=== PATIENT | female | born 1945 | race Caucasian/White ===

== ENCOUNTER 2017-02-28 16:34 | Emergency (ER) | payer MEDICARE, BC ==
[2017-02-28 17:16] LABS: ALBUMIN 2.5 g/dL (3.5-5.0); ALKALINE PHOSPHATASE 243 U/L (38-126); ALT 31 U/L (9-52); AST 24 U/L (14-36); BILIRUBIN, DIRECT 0.4 mg/dL (0.0-0.4); BILIRUBIN, TOTAL 0.7 mg/dL (0.2-1.3); BLOOD UREA NITROGEN 16 mg/dL (7-17); CALCIUM 7.8 mg/dL (8.4-10.2); CHLORIDE 96 mmol/L (98-107); CREATININE 0.9 mg/dL (0.5-1.0); EST GLOMERULAR FILTRATION RATE > 60 mL/min; GLUCOSE 98 mg/dL (70-100); LIPASE 31 U/L (23-300); POTASSIUM 3.8 mmol/L (3.5-5.1); SODIUM 130 mmol/L (137-145); TOTAL PROTEIN 5.6 g/dL (6.3-8.2)
[2017-02-28] MEDS ORDERED: PIPERACILLIN /TAZO 3.375 GM/10 ML VIAL IV ONE (17:49)
[2017-02-28] MEDS ORDERED: NORMAL SALINE 100 ML IV ONE (17:49)
[2017-02-28 17:52] LABS: HEMATOCRIT 34.3 % (36.0-48.0); HEMOGLOBIN 11.6 g/dL (12.0-16.0); MEAN CELL VOLUME 84.6 fL (80.0-100.0); MEAN CORPUSCULAR HEMOGLOBIN 28.8 pg (29.0-35.0); MEAN PLATELET VOLUME 7.7 fL (7.4-10.4); PLATELET COUNT 451 X 10^3uL (130-440); RED BLOOD COUNT 4.05 X 10^6uL (4.20-6.10); RED CELL DISTRIBUTION WIDTH 14.4 % (11.5-14.5)
[2017-02-28 17:53] LABS: BAND% (Manual) 12 % (0.0-1.0); BASOPHIL % (Manual) 0 % (0.0-2.0); EOSINOPHIL % (Manual) 0 % (0.0-6.0); LYMPHOCYTE % (Manual) 12 % (20.0-40.0); METAMYELOCYTE % (Manual) 0 % (0); MONOCYTE % (Manual) 5 % (2.0-10.0); MYELOCYTE % (Manual) 0 % (0); NEUTROPHIL % (Manual) 71 % (54.0-75.0); PLATELET ESTIMATE INCREASED
--- NOTE | 2017-02-28 18:33 | CT REPORT ---
HISTORY: History of colon resection, redness and drainage at incision site. COMPARISON: None. TECHNIQUE: This examination was performed using automated exposure control, adjustment of mA or kV according to patient size, and/or use of iterative reconstruction technique. Multiple contiguous axial images were obtained from the lung bases through the pubic symphysis following administration of intravenous con trast. 100cc Isovue 300 contrast. FINDINGS: There is small bilateral pleural effusions with some dependent atelectasis or consolidation of the travis ng parenchyma noted. Cardiac structures are grossly unremarkable. Abdomen/pelvis: The liver is normal in appearance without a mass or evidence of intrahepatic ductal d ilatation. Cholelithiasis is noted, the gallbladder is otherwise unremarkable. The spleen is normal in appearance. There is no pancreatic mass or ductal dilatation. The adrenal glands are unremarkable. The right an d left kidneys are normal in appearance. No mass or hydronephrosis is noted. There is suture material noted within a segment of the transverse colon and the ascending colon is ab sent. There is subcutaneous gas in the anterior abdominal wall with mesenteric inflammatory change id entified in the adjacent large bowel and small bowel mesentery consistent with the patient's postoper ative status. There is trace intraperitoneal fluid noted in the pelvis. There is no intraperitoneal g as identified. The stomach is unremarkable. There is no dilated segment of small bowel. There is very minimal bowel wall edema and enhancement noted particularly in the right upper quadrant, where there is some interloop mesenteric fluid. There is no rim-enhancing intraperitoneal collection. Vascular s tructures of the abdomen and pelvis are unremarkable. No pathologic adenopathy is identified. No lebron spicious bony lesions are seen. IMPRESSION: Postoperative changes of the colon with mesenteric edema, inter loop fluid, and minimal adjacent smal l bowel wall thickening and enhancement, no evidence of abscess. Trace anterior abdominal wall subcut aneous gas consistent with postoperative status. Cholelithiasis. Bilateral pleural effusions with some dependent lung parenchymal consolidation or atelectasis. No nieves dence of high-grade bowel obstruction. No focal subcutaneous fluid collection is identified. Final Electronic Signature: This report was electronically signed by Enrique Noel MD, FACR on 2016 6:31 PM. harjit /
[2017-02-28] MEDS ORDERED: KETOROLAC TROMETHAMINE 30 MG/ML VIAL ONE (18:51)
--- NOTE | 2017-02-28 18:52 | ER NURSING DOCUMENTATION ---
Nurse's Notes [facility] Name:Aislinn Broderick Age:71 yrs Sex:Female :1945 Arrival Date:02/28/2017 Time:16:34 Bed4 Private MD:Gavin Acosta Diagnosis:Sepsis;Postop Infection Presentation: 02/28 16:35 Presenting complaint: Patient states: pt had a colon resection on February [address] is foul smelling drainage from the insition sight and redness around the wound. Transition of care: Home. Care prior to arrival: Dr. Moran placed her on Bactrim yesterday for redness around the wound. 16:35 Method Of Arrival: Private Vehicle st 16:53 Acuity: TAMMI 2 st Triage Assessment: 16:35 General: Appears ill, uncomfortable, Behavior is cooperative. Pain: Denies pain. st Cardiovascular: No deficits noted. Respiratory: No deficits noted. GI: Abdomen is obese, Abdomen is tender to palpation X 4 quads. Injury Description: insition looks red and weepy. wound leaks a foul smelling yellow fluid. Historical: - Allergies: Ceclor; - Home Meds: 1. oxygen 2. biotin oral 3. Calcium Lactate Oral 4. CPAP 5. Flexeril Oral 6. Lexapro Oral 7. Levothroid Oral 8. Naproxen Oral 9. Oxybutynin Chloride Oral 10. Bactrim DS Oral 11. Trazodone Oral - PMHx: CANCER, COLON; ARTHRITIS; scoliosis; - PSHx: colon resection; - Tetanus: < 10 years. - Ebola Screening: : Patient denies exposure to infectious person. Patient denies travel to an Ebola-affected area in the 21 days before illness onset. . - Social history: Smoking status: Patient states was never smoker of tobacco. Patient/guardian denies using alcohol, marijuana. Screenin:21 Infectious Disease Risk None. Abuse screen: Denies threats or abuse. Denies injuries st from another. pt feels safe at home. Nutritional screening: No deficits noted. Assessment: 18:33 General: wound expressing foul fluid. . st Vital Signs: 16:42 BP 111 / 60 (auto/); Temp 98.4(O); Pain 0/10; st 16:47 Pulse Ox 99% ; st 17:10 BP 122 / 58 (auto/); st 17:12 Pulse 97 MON; Resp 17; Pulse Ox 100% ; st 17:17 Pulse 97 MON; Resp 19; Pulse Ox 100% ; st 17:20 BP 131 / 60 (auto/); st 17:27 Pulse 98 MON; Resp 22; Pulse Ox 100% ; st 17:30 BP 136 / 54 (auto/); st 18:05 BP 132 / 63 (auto/); st 18:07 Pulse 100 MON; Resp 26; Pulse Ox 94% ; st 18:10 BP 128 / 59 (auto/); st 18:17 Pulse 101 MON; Resp 22; Pulse Ox 95% ; st 18:20 BP 123 / 60 (auto/); st 18:27 Pulse 101 MON; Resp 28; Pulse Ox 94% ; st 18:30 BP 132 / 55 (auto/); st 18:32 Pulse 99 MON; Resp 27; Pulse Ox 96% ; st 18:40 BP 148 / 64 (auto/); st 18:47 Pulse 99 MON; Resp 36; Pulse Ox 96% ; st ED Course: 16:35 Patient arrived in ED. ama 16:36 Gavin Acosta DO is Private Physician. ama 16:50 ruling technician on. Pulse ox on. NIBP on. Warm blanket given. st 16:53 Stephani Casillas, RN is Primary Nurse. st 16:[address] 16:53 Inserted peripheral IV: 20 gauge in right antecubital area and blood collected. st 17:07 Misha Mendosa MD is Attending Physician. 17:09 First set of blood cultures drawn Second set of blood cultures drawn by me. st 17:22 Valuables Remains with patient Patient has correct armband on for positive st identification. Placed in gown. Bed in low position. Call light in reach. Side rails up X 1. 17:[address] hz 17:55 Patient moved back from [address]. hz 18:33 Wound culture sent to lab. st Administered Medications: 17:09 Drug: NS 0.9% 1000 ml; Route: IV; Rate: bolus; Site: right antecubital; st 18:06 Follow up: IV Status: Completed infusion; IV Intake: 1000ml st 18:00 Drug: Zosyn 3.375 grams; Route: IVPB; Site: right antecubital; st 18:37 Follow up: IV Status: Completed infusion; IV Intake: 120ml st 18:42 Drug: Toradol 30 mg; Route: IVP; Site: right antecubital; st 18:51 Follow up: Response: Medication administered at discharge. st 18:42 Not Given (Patient Refused): morphine [address] Intake: 18:06 IV: 1000ml; Total: 1000ml. st 18:37 IV: 120ml; Total: 1120ml. st Outcome: 18:34 ER care complete, transfer ordered by . jeff 18:47 Report given to Tai GREEN st 18:50 [facility] Time: February 28, 2017 at 18:50 Patient's face sheet was faxed to accepting facility. Face Sheet included patient's name, address, age, gender, contact information and insurance information. Patient will be transported by: [facility] ground. Nurse and Physician Charting and Notes were sent to Accepting Facility. All tests and/or procedures with results, if applicable, were sent to accepting facility. 18:50 Condition: guarded 18:50 Instructed on need for transfer 18:51 Patient [address] the ED. st Signatures: Stephani Casillas RN RN st Meyer, John, MD MD jm Averdick, Andrew, Cris Garcia
--- NOTE | 2017-02-28 18:52 | ER PHYSICIAN DOCUMENTATION ---
[facility] Name:Aislinn Broderick Age:71 yrs Sex:Female :1945 Arrival Date:02/28/2017 Time:16:34 Bed4 Private MD:Gavin Acosta ED, John Disposition: 02/28/17 18:34 Transfer ordered to [facility]. Diagnosis are Sepsis, Postop Infection. - Reason for transfer: Specialty. - Accepting physician is Dr. Minor. - Condition is Serious. - Problem is new. - Symptoms are unchanged. COBRA Form completed? Yes Transfer - Mode of Transportation Ambulance HPI: 02/28 17:46 This 71 yrs old Female presents to ER via Private Vehicle with complaints of jm POSSIBLE SEPSIS. 17:46 The patient presents with abdominal pain. Onset: The symptoms/episode began/occurred jm today. The symptoms do not radiate. Associated signs and symptoms: Pertinent positives: feculent material coming from a postoperative scar. . The symptoms are described as dull. Modifying factors: the symptoms are aggravated by medication(s), pressure. Severity of pain: At its worst the pain was mild in the emergency department the pain is unchanged. The patient has not experienced similar symptoms in the past. The patient has been recently seen by a physician: the patient's primary care provider, Dr. Duran, with similar presenting complaints, sent to ER for work up. . . 17:58 71 yo F s/p R hemicolectomy for cecal Ca and adenoma of the transverse colon don't jm 02/01/17, complicated by post op ileus sent here by her PCP for eval. Pt was seen yesterday for wound infection and placed on Bactrim, but today she had a large amount of feculent material that came through the wound w/o dehiscence in front of Dr. Duran. Dr. Duran noted an SBP of 90 and HR of 130, so he sent her here right away. Her VS are much better here. Pt denies fevers or chills, but feels run down for the last few days. . Historical: - Allergies: Ceclor; - Home Meds: 1. oxygen 2. biotin oral 3. Calcium Lactate Oral 4. CPAP 5. Flexeril Oral 6. Lexapro Oral 7. Levothroid Oral 8. Naproxen Oral 9. Oxybutynin Chloride Oral 10. Bactrim DS Oral 11. Trazodone Oral - PMHx: CANCER, COLON; ARTHRITIS; scoliosis; - PSHx: colon resection; - Tetanus: < 10 years. - Ebola Screening: : Patient denies exposure to infectious person. Patient denies travel to an Ebola-affected area in the 21 days before illness onset. . - Social history: Smoking status: Patient states was never smoker of tobacco. Patient/guardian denies using alcohol, marijuana. ROS: 18:02 Constitutional: Positive for fatigue, malaise, Negative for fever. 18:02 ENT: Negative for rhinorrhea, sinus congestion, sinus pain, sore throat. 18:02 Cardiovascular: Negative for chest pain. 18:02 Respiratory: Negative for cough, shortness of breath. 18:02 Abdomen/GI: Positive for abdominal pain, Negative for nausea, vomiting, diarrhea. 18:02 Back: Negative for radiated pain. 18:02 MS/extremity: Negative for swelling, tenderness. 18:02 Skin: Positive for cellulitis, of the abdomen. 18:02 Neuro: Negative for numbness, weakness. 18:02 Psych: Negative for drug dependence, alcohol dependence. 18:02 All other systems are negative. Exam: 18:03 Constitutional: The patient appears alert, awake, comfortable. 18:03 Eyes: Periorbital structures: appear normal, Conjunctiva: normal. 18:03 ENT: Mouth: is normal, Voice: is normal. 18:03 Cardiovascular: Rate: actual rate is 95 bpm, Rhythm: regular, Pulses: no pulse deficits are appreciated. 18:03 Respiratory: Respirations: normal, Breath sounds: are normal. 18:03 Abdomen/GI: Inspection: scar(s), are noted in the midline- no dehisence, but cellulitis noted. I did not express any purulance or feculent material , Bowel sounds: normal, Palpation: mild abdominal tenderness, in the umbilical area. 18:03 Back: pain, is absent, CVA tenderness, is absent. 18:03 Skin: Appearance: Color: pink, cellulitis, that is moderate, well demarcated, on the abdomen. 18:03 Neuro: Mentation: is normal, Memory: is normal. 18:03 Psych: Behavior/mood is pleasant, Affect is calm. Vital Signs: 16:42 BP 111 / 60 (auto/); Temp 98.4(O); Pain 0/10; st 16:47 Pulse Ox 99% ; st 17:10 BP 122 / 58 (auto/); st 17:12 Pulse 97 MON; Resp 17; Pulse Ox 100% ; st 17:17 Pulse 97 MON; Resp 19; Pulse Ox 100% ; st 17:20 BP 131 / 60 (auto/); st 17:27 Pulse 98 MON; Resp 22; Pulse Ox 100% ; st 17:30 BP 136 / 54 (auto/); st 18:05 BP 132 / 63 (auto/); st 18:07 Pulse 100 MON; Resp 26; Pulse Ox 94% ; st 18:10 BP 128 / 59 (auto/); st 18:17 Pulse 101 MON; Resp 22; Pulse Ox 95% ; st 18:20 BP 123 / 60 (auto/); st 18:27 Pulse 101 MON; Resp 28; Pulse Ox 94% ; st 18:30 BP 132 / 55 (auto/); st 18:32 Pulse 99 MON; Resp 27; Pulse Ox 96% ; st 18:40 BP 148 / 64 (auto/); st 18:47 Pulse 99 MON; Resp 36; Pulse Ox 96% ; st MDM: 17:07 Patient medically screened. 18:08 Differential diagnosis: sepsis 2/2 to leaked anastomsis. Data reviewed: vital signs, nurses notes, old medical records, lab test result(s), radiologic studies, and as a result, I will *Transfer Patient. 18:36 Counseling: I had a detailed discussion with the patient and/or guardian regarding: the historical points, exam findings, and any diagnostic results supporting the discharge/admit diagnosis, lab results, radiology results, the need to transfer to another facility. Medication response: The patient's symptoms have improved. Physician consultation: Dr. Minor was called at 18:20, was contacted at 18:30, regarding patient's condition, and transfer- . ED course: Pt w sepsis given elevated WBC, HR, and a source. Pt expressed another 10cc of feculent material here. Will start zosyn. CT results are not too alarming, but I feel most of the material was expressed which is why the CT only showed appropriate post op changes. I spoke w surgeon Dr. Velazco, who accepted pt but wants pt seen in the ER. . 03/30 17:16 Order name: LACTATE; Complete Time: 17:56 EDMS 02/28 18:21 Interpretation: Abnormal. 02/28 17:17 Order name: BASIC METABOLIC PANEL; Complete Time: 17:56 EDMS 02/28 18:21 Interpretation: Abnormal: SODIUM 130; hyponatremia. 02/28 17:17 Order name: HEPATIC PANEL; Complete Time: 17:56 EDMS 02/28 17:17 Order name: LIPASE; Complete Time: 17:56 EDMS 02/28 17:55 Order name: CBC WITHOUT A DIFFERENTIAL; Complete Time: 17:56 EDMS 02/28 18:21 Interpretation: Abnormal: WHITE BLOOD COUNT 27.0. 02/28 17:55 Order name: MANUAL DIFFERENTIAL; Complete Time: 17:56 EDMS 02/28 18:21 Interpretation: BAND% (Manual) 12. 02/28 18:35 Order name: CAT SCAN; ABD/PEL W [id number]; Complete Time: 18:36 EDMS 02/28 16:56 Order name: I & O; Complete Time: 17:13 02/28 16:56 Order name: NPO; Complete Time: 17:13 02/28 16:56 Order name: Oxygen; Complete Time: 17:13 02/28 16:56 Order name: Place Patient On Monitor; Complete Time: 17:13 02/28 16:56 Order name: Pulse Ox Continuous; Complete Time: 17:13 st Dispensed Medications: 17:09 Drug: NS 0.9% 1000 ml; Route: IV; Rate: bolus; Site: right antecubital; st 18:06 Follow up: IV Status: Completed infusion; IV Intake: 1000ml st 18:00 Drug: Zosyn 3.375 grams; Route: IVPB; Site: right antecubital; st 18:37 Follow up: IV Status: Completed infusion; IV Intake: 120ml st 18:42 Drug: Toradol 30 mg; Route: IVP; Site: right antecubital; st 18:51 Follow up: Response: Medication administered at discharge. st 18:42 Not Given (Patient Refused): morphine [address] Signatures: Stephani Casillas RN RN st Meyer, John, MD MD jm
== END 2017-02-28 18:52 | disposition short-term general hospital (02) ==
LOC: ER 16:34
DX: T81.4XXA Infection following a procedure, initial encounter (principal); A41.9 Sepsis, unspecified organism; L03.311 Cellulitis of abdominal wall; Z90.49 Acquired absence of other specified parts of digestive tract; Z98.890 Other specified postprocedural states; R00.0 Tachycardia, unspecified; I95.9 Hypotension, unspecified; Z85.038 Personal history of other malignant neoplasm of large intestine; R53.83 Other fatigue; R53.81 Other malaise; Z98.0 Intestinal bypass and anastomosis status; Z99.81 Dependence on supplemental oxygen; Z74.3 Need for continuous supervision; Z79.899 Other long term (current) drug therapy
CPT/HCPCS: 74177; 80048; 80076; 83605; 83690; 85007; 85027; 87040; 87070; 87077; 87186; 87205; 96361; 96365; 96375; 99285; A0425; A0427; J1885; J2543

== ENCOUNTER 2017-04-08 16:14 | Observation (INO) | payer MEDICARE, BC ==
[2017-04-08 17:11] LABS: CHLORIDE 101 mmol/L (98-107); POTASSIUM 4.1 mmol/L (3.5-5.1); SODIUM 136 mmol/L (137-145)
[2017-04-08 17:12] LABS: BLOOD UREA NITROGEN 18 mg/dL (7-17); CREATININE 0.9 mg/dL (0.5-1.0); EST GLOMERULAR FILTRATION RATE > 60 mL/min; GLUCOSE 117 mg/dL (70-100)
[2017-04-08] MEDS ORDERED: FAMOTIDINE IN SALINE, ISO-OSM 50 ML IV ONE (17:21)
[2017-04-08] MEDS ORDERED: ONDANSETRON HCL 4 MG/2 ML VIAL ONE (17:22)
[2017-04-08 17:24] LABS: BASOPHIL# 0.2 X 10^3uL (0.0-0.1); BASOPHILS 0.9 % (0.0-2.0); EOSINOPHILS 0.1 % (0.0-6.0); HEMATOCRIT 40.3 % (36.0-48.0); HEMOGLOBIN 13.1 g/dL (12.0-16.0); LYMPHOCYTES 26.8 % (20.0-40.0); LYMPHOCYTES# 4.8 X 10^3uL (0.8-3.8); MEAN CELL VOLUME 87.2 fL (80.0-100.0); MEAN CORPUS. HGB CONCENTRATION 32.3 g/dL (32.0-36.0); MEAN CORPUSCULAR HEMOGLOBIN 28.2 pg (29.0-35.0); MEAN PLATELET VOLUME 7.7 fL (7.4-10.4); MONOCYTES 4.2 % (2.0-10.0); MONOCYTES# 0.7 X 10^3uL (0.2-1.0); NEUTROPHILS# 12.1 X 10^3uL (2.6-6.7); PLATELET COUNT 504 X 10^3uL (130-440); RED BLOOD COUNT 4.63 X 10^6uL (4.20-6.10); RED CELL DISTRIBUTION WIDTH 15.6 % (11.5-14.5); WHITE BLOOD COUNT 17.8 X 10^3uL (3.9-10.7)
[2017-04-08 17:44] LABS: ALBUMIN 3.7 g/dL (3.5-5.0); ALKALINE PHOSPHATASE 143 U/L (38-126); ALT 42 U/L (9-52); AST 48 U/L (14-36); BILIRUBIN, DIRECT 0.2 mg/dL (0.0-0.4); BILIRUBIN, TOTAL 0.6 mg/dL (0.2-1.3); CALCIUM 9.6 mg/dL (8.4-10.2); TOTAL PROTEIN 7.5 g/dL (6.3-8.2)
[2017-04-08 17:48] LABS: LIPASE 76 U/L (23-300)
[2017-04-08] MEDS ORDERED: HYDROmorphone HCL 1 MG/ML SYR ONE (17:54)
--- NOTE | 2017-04-08 18:00 | CT REPORT ---
HISTORY: Abdominal pain after partial colectomy COMPARISON: 02/28/2017 TECHNIQUE: This examination was performed using automated exposure control, adjustment of mA or kV according to patient size, and/or use of iterative reconstruction technique. Axial contiguous images of the abdome n and pelvis were obtained without oral or IV contrast, coronal reformat images also performed. FINDINGS: The visualized lung parenchyma and cardiac structures are unremarkable. The right and left kidneys are unremarkable. There is no hydronephrosis or hydroureter. There is no c alculus. Diffuse hepatic parenchymal low attenuation is noted, suggesting hepatic steatosis. Nonobstructive g allstone is again noted. No gallbladder wall thickening. The spleen is unremarkable. There is no pa ncreatic mass or ductal dilatation. The adrenal glands are unremarkable. The proximal small bowel is dilated up to 4.5 cm and the dilated segments contain multiple air-fluid levels. The small bowel transitions to normal caliber within the anterior right lower quadrant (axial image 36), however there is no mass or obstructing lesion at the segment. Postoperative changes from right hemicolectomy are redemonstrated with unremarkable appearance of the anastomosis just anterior to the aortic bifurcation. There is no intra-abdominal free fluid or free air. Aortoiliac arterial atherosclerotic calcifications present. No pathologic adenopathy is identi fied. There is no bone lesion. The wound VAC overlies the ventral midline incision. IMPRESSION: 1. Partial mechanical small bowel obstruction with transition point in the anterior right lower abdom en. 2. Post hemicolectomy changes. 3. Nonobstructive cholelithiasis. 4. Hepatic steatosis. Results were discussed with Dr. CHOWDHURY via phone on 04/08/2017 5:[address] Melo. A critical read ba ck occurred. Final Electronic Signature: This report was electronically signed by Jose Ramon Melo MD on 04/08/2017 5:5 7 PM. dwells /
[2017-04-08] MEDS ORDERED: HOME MEDICATION LIST NEEDED 1 EA EACH MISC ONE (18:40)
[2017-04-08] MEDS ORDERED: LIDOCAINE HCL 1% 20 ML VIAL ONE (19:03)
[2017-04-08] MEDS ORDERED: CALCIUM CARBONATE 300 MG TAB.CHEW PO PRN (19:56)
--- NOTE | 2017-04-08 20:10 | ER PHYSICIAN DOCUMENTATION ---
Physician Documentation [facility] Name:Aislinn Broderick Age:71 yrs Sex:Female :1945 Arrival Date:04/08/2017 Time:16:14 Bed4 Private MD:Gavin Acosta ED, Chris Disposition: 04/08/17 18:34 Admit ordered for Quinn Patterson. Preliminary diagnosis are Bowel Obstruction - : SBO at Proximal Ileum, Dehydration. - Bed requested for Medical/Surgical. - Condition is Fair. - Problem is new. - Symptoms have improved. 23 HR OBS Yes HPI: 04/08 16:16 This 71 yrs old Female presents to ER via Private Vehicle with complaints of cd Abdominal Pain. 16:16 The patient presents with abdominal pain in the epigastric area, that is diffuse, cd abdominal distention that is diffuse. constipation, the patient or guardian reports hard stools. Onset: The symptoms/episode began/occurred acutely, yesterday, and became worse today. The symptoms do not radiate. Associated signs and symptoms: Pertinent positives: anorexia, nausea, Epigastric "indigestion" and reflux, Pertinent negatives: blood in stools, chest pain, dysuria, fever, hematuria, shortness of breath, vomiting blood, + belching. The symptoms are described as crampy. Severity of pain: At its worst the pain was moderate in the emergency department the pain is unchanged. The patient has not experienced similar symptoms in the past. The patient had undergone Colonoscopy and colon lesion biopsy. She had a post-biopsy GI bleed which was controlled at [facility], but she was ultimately transferred to [facility] for a Right Hemicolectomy, since her lesion location was near the cecum and involved the Cecum. She had a post-op surgical wound infection that required antibiotics and a Swing bed admission status here at [facility]. She has never had a bowel obstruction.. Historical: - Allergies: Ceclor; - PMHx: HYPERTENSION; colon CA; THYROID PROBLEM; GERD; ANEMIA; sepsis; - PSHx: hemicolectomy; sleep apnea; - Immunization history: Flu Vaccine unknown. - Ebola Screening: : Patient negative for fever greater than or equal to 101.5 degrees Fahrenheit, and additional compatible Ebola Virus Disease symptoms. Patient denies exposure to infectious person. Patient denies travel to an Ebola-affected area in the 21 days before illness onset. No symptoms or risks identified at this time. . - Social history: Smoking status: Patient states former smoker of tobacco. ROS: 18:10 Constitutional: Positive for malaise, poor PO intake, Negative for chills, fever. cd 18:10 Cardiovascular: Negative for chest pain, edema, palpitations. 18:10 Respiratory: Negative for cough, shortness of breath, wheezing. 18:10 Abdomen/GI: Positive for abdominal pain, nausea, vomiting, abdominal distension, anorexia, Negative for hematemesis, black/tarry stool, rectal bleeding. 18:10 Back: Negative for pain at rest. 18:10 MS/extremity: Negative for acute changes. 18:10 Skin: Negative for acute changes. 18:10 Neuro: Negative for acute changes. 18:10 All other systems are negative. Exam: 18:10 Head/Face: Normocephalic, atraumatic. cd ENT: Nares patent. No nasal discharge, no septal abnormalities noted. Tympanic membranes are normal and external auditory canals are clear. Oropharynx with no redness, swelling, or masses, exudates, or evidence of obstruction, uvula midline. Mucous membranes very dry Chest/axilla: Normal chest wall appearance and motion. Nontender with no deformity. No lesions are appreciated. Cardiovascular: Regular rate and rhythm with a normal S1 and S2. No gallops, murmurs, or rubs. Normal PMI, no JVD. No pulse deficits. 18:10 Respiratory: Lungs have equal breath sounds bilaterally, clear to auscultation and cd percussion. No rales, rhonchi or wheezes noted. No increased work of breathing, no retractions or nasal flaring. 18:10 Constitutional: The patient appears alert, awake, non-diaphoretic, non-toxic, well developed, well nourished, anxious, listless, in obvious distress, moderately distressed. 18:10 Abdomen/GI: Inspection: distension, that is moderate, Bowel sounds: high pitched, all quadrants. Palpation: moderate abdominal tenderness, in the left upper quadrant, right lower quadrant and left lower quadrant, Indicators: Daniel's sign is negative. 18:10 Back: pain, is absent, normal spinal alignment noted, CVA tenderness, is absent. 18:10 Musculoskeletal/extremity: Exam is negative for acute changes. 18:10 Skin: Exam negative for acute changes. 18:10 Neuro: Exam negative for acute changes. Vital Signs: 16:18 BP 150 / 75 (auto/); tg 16:19 Pulse 97 MON; Resp 32; Pulse Ox 97% ; tg 17:04 Pulse 78 MON; Resp 17; Pulse Ox 95% ; tg 17:04 Temp 97.6(O); Weight 69.4 kg (R); Height 5 ft. 5 in. (165.10 cm) (R); Pain 3/10; tg 19:00 BP 190 / 88 (auto/); tg 19:09 Pulse 70 MON; Resp 31; Pulse Ox 94% ; tg 17:04 Body Mass Index 25.46 (69.40 kg, 165.10 cm) tg MDM: 16:39 Patient medically screened. cd 16:40 Differential diagnosis: bowel obstruction, cholecystitis, diverticulitis, gastritis, cd gastroesophageal reflux disease, Mesenteric ischemia or infarction, Pyelonephritis. 16:45 Data reviewed: vital signs, nurses notes, old medical records, and as a result, I will cd continue to observe the patient, initiate a consult, with a general surgeon, administer IV fluids, NS bolus, NS maintenence, prescribe pain medication, Dilaudid. Data interpreted: Pulse oximetry: on room air is 94 %. Interpretation: normal. 18:30 Counseling: I had a detailed discussion with the patient and/or guardian regarding: the cd historical points, exam findings, and any diagnostic results supporting the discharge/admit diagnosis, lab results, radiology results, the need for further work-up and treatment in the hospital. Response to treatment: the patient's symptoms have mildly improved after treatment, and as a result, I will admit patient. Physician consultation: Quinn Patterson MD was called at 16:45, was contacted at 16:45, regarding admission, to the floor, consult, patient's condition, need to come to ED to see patient, need to evaluate the patient as soon as possible, and will see patient in ED, shortly. 19:17 EKG attached lp 19:17 EKG attached lp 04/08 17:13 Order name: BASIC METABOLIC PANEL; Complete Time: 21:59 EDMS 04/08 17:33 Interpretation: Normal. cd 04/08 17:58 Order name: HEPATIC PANEL; Complete Time: 21:59 EDMS 04/08 18:30 Interpretation: Normal Except: ALKALINE PHOSPHATASE 143; AST 48. cd 04/08 17:58 Order name: LIPASE; Complete Time: 21:59 EDMS 04/08 18:30 Interpretation: Normal. cd 04/08 18:01 Order name: CBC AUTO DIF, MDIF/RMOR IF IND; Complete Time: 21:59 EDMS 04/08 18:30 Interpretation: Normal Except: WHITE BLOOD COUNT 17.8; PLATELET COUNT 504; Elevated WBC cd with Left shift, Thrombocytosis. 04/08 18:31 Order name: INR W/ CAPI DRAW; Complete Time: 18:45 EDMS 04/09 21:58 Interpretation: Abnormal: Elevated into [place] range. Patient on Warfarin for a cd RUE DVT. 04/08 20:12 Order name: TROPONIN I; Complete Time: 21:59 EDMS 04/09 08:53 Order name: CBC AUTO DIF, MDIF/RMOR IF IND; Complete Time: 21:59 EDMS 04/09 09:58 Order name: INR W/ CAPI DRAW; Complete Time: 21:59 EDMS 04/09 23:42 Order name: BLOOD CULTURE EDMS 04/10 06:30 Order name: INR W/O CAPI DRAW EDMS 04/10 06:32 Order name: BASIC METABOLIC PANEL EDMS 04/10 13:55 Order name: UA W/ MICRO -CULTURE IF IND EDMS 04/08 17:34 Order name: CAT SCAN; ABD/[place] [id number]; Complete Time: 18:17 EDMS 04/08 18:29 Interpretation: Abnormal: Partial SBO with transition at the Proximal Ilium. No cd Abscess, Fluid collections or leaks. No masses. See Radiologist Report. 04/08 19:54 Order name: CHEST; SINGLE VIEW [id number] EDMS 04/09 07:26 Order name: CHEST; SINGLE VIEW [id number]; Complete Time: 21:59 EDMS 04/10 09:48 Order name: SMALL INT; MUTI FILMS 10007 EDMS 04/08 16:40 Order name: NPO; Complete Time: 17:39 cd 04/08 16:41 Order name: EKG - 12 Lead; Complete Time: 19:14 cd 04/08 18:17 Order name: NG Tube; Complete Time: 19:14 cd Dispensed Medications: 17:10 Drug: NS 0.9% 500 ml; Route: IV; Rate: bolus; Site: left hand; Delivery: [place] Tubing;tg 19:14 Follow up: IV Status: Completed infusion; IV Intake: 500ml tg 17:20 Drug: Zofran 4 mg; Route: IVP; Infused Over: 2 mins; Site: left hand; tg 18:06 Follow up: Response: No adverse reaction; Nausea is decreased tg 17:23 Drug: NS 0.9% 50 ml, Pepcid 20 mg; Route: IVPB; Infused Over: 15 mins; Site: left hand; tg Delivery: Pump; 17:59 Follow up: IV Status: Completed infusion; IV Intake: 50ml tg 17:59 Drug: Dilaudid 0.25 mg; Route: IVP; Site: left hand; tg 18:06 Follow up: Response: No adverse reaction; Pain is decreased tg 19:00 Drug: Dilaudid 0.25 mg; Route: IVP; Site: left hand; tg 19:15 Follow up: Response: Pain is decreased tg Signatures: Neeraj Be RN RN Darcie Flores RN RN Brian Nguyen MD MD cd
--- NOTE | 2017-04-08 20:10 | ER NURSING DOCUMENTATION ---
Nurse's Notes [facility] Name:Aislinn Broderick Age:71 yrs Sex:Female :1945 Arrival Date:04/08/2017 Time:16:14 Bed4 Private MD:Gavin Acosta Diagnosis:Bowel Obstruction-: SBO at Proximal Ileum;Dehydration Presentation: 04/08 16:22 Acuity: TAMMI 2 tg 17:19 Presenting complaint: Patient states: ABD pain, reflux, nausea and vomiting. Transition tg of care: patient was received from another setting of care (home health care). 17:19 Method Of Arrival: Private Vehicle tg Triage Assessment: 16:20 General: Appears uncomfortable, Behavior is cooperative, pleasant. Pain: Complains of tg pain in epigastric area and umbilical area. Neuro: Level of Consciousness is awake, alert. Cardiovascular: Capillary refill < 3 seconds. Respiratory: Respiratory effort is even, unlabored. GI: Reports upper abdominal pain, bloating, nausea, vomiting. : Denies burning with urination. 18:27 GI: Abdomen is wound vac to portable pump. tg Historical: - Allergies: Ceclor; - PMHx: HYPERTENSION; colon CA; THYROID PROBLEM; GERD; ANEMIA; sepsis; - PSHx: hemicolectomy; sleep apnea; - Immunization history: Flu Vaccine unknown. - Ebola Screening: : Patient negative for fever greater than or equal to 101.5 degrees Fahrenheit, and additional compatible Ebola Virus Disease symptoms. Patient denies exposure to infectious person. Patient denies travel to an Ebola-affected area in the 21 days before illness onset. No symptoms or risks identified at this time. . - Social history: Smoking status: Patient states former smoker of tobacco. Screenin:18 Infectious Disease Risk Unable to Obtain. Abuse screen: Denies threats or abuse. Denies tg injuries from another. Nutritional screening: No deficits noted. Assessment: 17:17 Reassessment: Pt reports a blood clot in right arm in the past month, so all IVs and tg BPs are to be on the left arm. . 19:16 Reassessment: Suction set to intermittant for NG tube. 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 tg 20:42 GI: lp Vital Signs: 16:18 BP 150 / 75 (auto/); tg 16:19 Pulse 97 MON; Resp 32; Pulse Ox 97% ; tg 17:04 Pulse 78 MON; Resp 17; Pulse Ox 95% ; tg 17:04 Temp 97.6(O); Weight 69.4 kg (R); Height 5 ft. 5 in. (165.10 cm) (R); Pain 3/10; tg 19:00 BP 190 / 88 (auto/); tg 19:09 Pulse 70 MON; Resp 31; Pulse Ox 94% ; tg 17:04 Body Mass Index 25.46 (69.40 kg, 165.10 cm) tg ED Course: 16:15 Patient arrived in ED. maegan 16:16 Gavin Acosta DO is Private Physician. maegan 16:22 Neeraj Be, RN is Primary Nurse. tg 16:22 Triage completed. tg 16:39 Brian Nguyen MD is Attending Physician. cd 17:20 Inserted peripheral IV: 24 gauge in left hand Missed attempts: 22 gauge in left wrist, tg Bleeding controlled, band aid applied, catheter tip intact. 17:20 Valuables Remains with patient Patient has correct armband on for positive tg identification. Placed in gown. Bed in low position. Call light in reach. Side rails up X 1. Adult w/ patient. Cardiac Monitoring On for Nurse Monitoring only. Pulse Ox - RN Monitoring Only. 17:34 CAT SCAN; ABD/[place] [id number] In Process Unspecified. EDMS 18:32 Quinn Patterson MD is Admitting Physician. cd 19:15 NGT inserted 18 Fr. via right nares. Returned gastric contents. Oxygen Oxygen tg administration via nasal cannula @ 1L/min. 19:17 Port Xray Completed. cristina 19:17 EKG attached lp 19:17 EKG attached lp 19:54 CHEST; SINGLE VIEW [id number] In Process Unspecified. EDMS 20:04 CHEST; SINGLE VIEW [id number] Sent. cristina 04/09 09:21 CHEST; SINGLE VIEW [id number] In Process Unspecified. EDMS 04/10 09:48 SMALL INT; MUTI FILMS [id number] In Process Unspecified. EDMS Administered Medications: 04/08 17:10 Drug: NS 0.9% 500 ml; Route: IV; Rate: bolus; Site: left hand; Delivery: [place] Tubing;tg 19:14 Follow up: IV Status: Completed infusion; IV Intake: 500ml tg 17:20 Drug: Zofran 4 mg; Route: IVP; Infused Over: 2 mins; Site: left hand; tg 18:06 Follow up: Response: No adverse reaction; Nausea is decreased tg 17:23 Drug: NS 0.9% 50 ml, Pepcid 20 mg; Route: IVPB; Infused Over: 15 mins; Site: left hand; tg Delivery: Pump; 17:59 Follow up: IV Status: Completed infusion; IV Intake: 50ml tg 17:59 Drug: Dilaudid 0.25 mg; Route: IVP; Site: left hand; tg 18:06 Follow up: Response: No adverse reaction; Pain is decreased tg 19:00 Drug: Dilaudid 0.25 mg; Route: IVP; Site: left hand; tg 19:15 Follow up: Response: Pain is decreased tg Intake: 17:59 IV: 50ml; Total: 50ml. tg 19:14 IV: 500ml; Total: 550ml. tg Output: 19:17 Gastric: 500ml (NGT); Total: 500ml. tg Outcome: 18:34 Decision to Admit by Provider. cd 19:17 Admitted to Med/surg accompanied by nurse, via stretcher. tg 19:17 Condition: improved 19:17 Report given to Olu 19:17 Discharge Assessment: Patient awake and alert. 19:17 Instructed on need to admit 20:09 Patient left the ED. lp Signatures: Dispatcher [employer] Neeraj Escalante, RN RN tg Darcie Flores RN RN Brian Munoz MD MD cd Davies, Jackie, Reg Reg jd Abbott, Laura lea
[2017-04-08 20:12] LABS: TROPONIN I < 0.012 ng/mL (0.00-0.034)
[2017-04-08] MEDS ORDERED: traZODone HCL 50 MG TABLET PO SCH (21:00)
[2017-04-08] MEDS ORDERED: POTASSIUM CHLORIDE ER 20 MEQ TABLET PO SCH (21:00)
[2017-04-08] MEDS: HYDROmorphone HCL 1 MG/ML SYR IV PRN (21:06)
[2017-04-08] MEDS: DEXTROSE 5% 0.5 NS 1,000 ML IV SCH (21:19)
[2017-04-09] MEDS: PANTOPRAZOLE 40 MG TABLET PO SCH (05:55)
[2017-04-09] MEDS: DEXTROSE 5% 0.5 NS 1,000 ML IV SCH ×2 (05:56→11:56)
[2017-04-09] MEDS: LEVOTHYROXINE 88 MCG TABLET PO SCH (05:56)
[2017-04-09] MEDS ORDERED: PANTOPRAZOLE 40 MG VIAL IV SCH (06:30)
--- NOTE | 2017-04-09 07:24 | RADIOLOGY REPORT ---
A limited single portable view of the chest is compared with prior film dated . The heart and vessels are stable and unremarkable. The lung helms are clear. No infiltrate, fluid or pneumothorax is seen. Nasogastric tube is noted with its tip projecting in the expected region of the body of the stomach. IMPRESSION: Appropriate nasogastric tube positioning. No acute cardiopulmonary abnormality is identified. MTDD
--- NOTE | 2017-04-09 07:30 | CONSULTATION ---
DATE OF CONSULTATION: 04/08/17 [employer]PER[employer]OR [employer]: Quinn Patterson MD CHIEF COMPLAINT: Nausea, vomiting and abdominal pain. HISTORY OF PRESENT ILLNESS: This is a 71-year-old female whom underwent a colonoscopy in January and had a malignant polyp biopsied. This was in the cecum and it bled post procedure. She had another endoscopy and bleeding was controlled. She was transferred to [facility] and the following day underwent a right hemicolectomy. This was around 02/01/17. She did well postoperatively, but developed an ileus about the time she was able to be discharged. This required placement of a nasogastric tube. She was later discharged, was doing well at home and then developed a wound infection. This was treated at [facility] with operative debridement and placement of a wound VAC. She was back in our facility in a swing bed and was convalescing well and was discharged. She said that for about a week she has not felt quite right. She said this Saturday she had some vomiting. She was able to eat and moved her bowels through the weekend. Today she vomited 3 times. She said that material was a dark colored material which was bitter tasting. She noted discomfort in the left upper quadrant and assumed this was from her wound and the wound VAC that had been placed. She said she did have 3 loose stools today but has not passed any flatus. She said she passed a lot of gas over the weekend. She denies fevers or chills. She really has no abdominal pain, and denies any shortness of breath or chest pain. She has had no right arm pain and notices no arm swelling. During her hospitalization, she developed a deep vein thrombosis in the right subclavian region from a PICC line. She is currently on Coumadin for this. REVIEW OF SYSTEMS GENERAL: She was starting to feel somewhat better but noticed that over the last week, she has been a bit more weak. SKIN/INTEGUMENT: No history of any skin cancers. HEENT: She is developing cataracts in both eyes which she is being followed. She also has had a dysfunctional tear syndrome. CARDIAC: She has hypertension. She does not have chest pain and does not have previous myocardial infarction. PULMONARY: Former smoker. Denies shortness of breath. GI: Significant for the colon cancer which has been resected and she has undergone a curative resection. : She has had difficult with overactive bladder. Denies any history of kidney stones. SENIOR STATISTICIAN: She is status post bilateral tubal ligation. NEURO: No history of seizure or stroke. PSYCHIATRIC: History of depression. ENDOCRINE: She has hypothyroidism. HEMATOPOIETIC: She has a history of deep vein thrombosis after child and then in her right arm following PICC line placement. PAST MEDICAL HISTORY 1. Deep vein thrombosis in the right arm and lower extremity. 2. History of depression. 3. History of osteoarthritis. 4. Sleep apnea. 5. Overactive bladder. 6. Hypothyroidism. 7. Status post left knee replacement. 8. Central hypertension. 9. GI bleed. 10. Small bowel obstruction. 11. Post polypectomy bleeding. 12. History of colon cancer. 13. Dry eye syndrome bilaterally. 14. Developing cataracts in the left eye. ALLERGIES: Cephalosporins. MEDICATIONS Aspirin 81 mg p.o. daily. Biotin at an unknown strength. Calcium carbonate at an unknown strength. Lasix 40 mg daily. Levothyroxine 88 mcg daily. Losartan 100 mg daily. Naprosyn PRN. Omeprazole 1 tab daily. Oxybutynin 1 tab b.i.d. Potassium chloride 10 MEQ daily. Trazadone 150 mg daily. Extra-strength Tylenol PRN. Coumadin at an unknown dose. FAMILY HISTORY: Significant for ovarian cancer in her mother. She also had breast cancer. Father had colon cancer. SOCIAL HISTORY: She is a nonsmoker. She quit a few years back. She is . She has 2 biological children. She is a non-alcohol user. PHYSICAL EXAMINATION VITAL SIGNS: Pulse 70, blood pressure 161/72, she was 98% saturated on 2 liters of nasal cannula. Her temperature is 37.3. GENERAL: She appears in no acute distress, but is concerned. She has nasal oxygen in place . HEENT: No neck masses palpated. No thyroid nodularity is appreciated. HEART: Occasionally irregular but no murmurs were heard, but otherwise was a normal rate. LUNGS: Clear bilaterally anteriorly. ABDOMEN: Has a wound VAC in place, there is an otherwise well healed upper midline incision. I heard no bowel sounds. Her abdomen was distended. There was no tenderness palpation of the left upper quadrant. There is no tenderness to palpation of the right upper quadrant. She had mild tenderness to palpation in the right lower quadrant. There was no tenderness to palpation in the left lower quadrant. She has some mild discomfort and burning occasionally in the periumbilical region. It was difficult for me to tell if this was from her wound VAC or if this was cramping abdominal pain. : Pelvic exam was deferred. RECTAL: She has some slightly prominent external hemorrhoids, tone of the rectum was normal. There was heme positive stool. It was not grossly bloody. NEUROLOGIC: Alert and oriented to person, place and time. No gross motor sensory defects were elicited. She was not ambulated. LOWER EXTREMITIES: Her lower extremities show signs of venous stasis changes. There is mild ankle swelling, but is otherwise unremarkable. IMAGING: CT scan shows what appears to be a partial small bowel obstruction in the region of the ileum. She does have a gallstone present without signs of biliary obstruction. There are no signs of intraabdominal abscess. LABS: White count of 17.8, hemoglobin 13.1, hematocrit 40.3. Her electrolytes are close to within normal limits. She does have slight elevation in her alkaline phosphatase and AST. PT and PTT are not available. ASSESSMENT 1. Partial small bowel obstruction in the immediate postoperative. 2. History of wound infection, status post drainage and placement of a wound VAC. 3. History of cecal colon cancer, status post right hemicolectomy. 4. History of right subclavian deep vein thrombosis from a PICC line, currently on anticoagulation. 5. Previous history of GI bleed and currently with probable gastritis causing GI bleed. 6. History of depression. 7. Osteoarthritis. PLAN: Nasogastric tube will be placed. She will be placed on nasogastric tube suctioning and will ask for medicine to evaluate her other current problems. Her white count is elevated at 17,000. At this time I found no source for the elevation except for the small bowel obstruction. Urinalysis and culture will be pending. Will reassess in the morning and if improved, may continue nasogastric tube suctioning. If there is no improvement, then would consider Gastrografin tube study. [facility]
--- NOTE | 2017-04-09 07:58 | HISTORY & PHYSICAL ---
DATE OF ADMISSION: 04/08/17 ATTENDING PHYSICIAN: Jaimie Thompson MD PRIMARY CARE PHYSICIAN: Gavin Acosta MD CHIEF COMPLAINT: Abdominal pain. HISTORY OF PRESENT ILLNESS: This is a 71-year-old white female who was recently discharged from [facility] on 03/25/17. She has had a very complicated course. 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 She then developed a deep abdominal wall infection which grew multiple organisms including Klebsiella, Citrobacter and Strep viridans. She now has a wound VAC in place. She presented to the Emergency Room with the abrupt onset of severe midepigastric abdominal pain with associated nausea and vomiting. She had dry heaves several nights ago with similar but less severe abdominal pain. She has no radiation of the pain. She has been followed by Home Health Care since being home from the past 2 weeks. No fevers, chills or sweats. No recent diarrhea. She has had some loose stools, but no grossly bloody stools. She has had bilious emesis but no hematemesis. REVIEW OF SYSTEMS: She feels dehydrated today. She has had decreased urine output. No dysuria. She has had a 40-pound weight loss with diuresis. She had 3 surgeries in a course of 4-5 days and was fluid overloaded at [facility]. Her weight upon discharge from [facility] was 203 pounds. No cough. She has had some runny nose and postnasal drainage. No shortness of breath. She wears oxygen 2 liters at night with her CPAP. No chest pain. No palpitations. No paroxysmal nocturnal dyspnea. She uses 2-3 pillows at night for comfort secondary to the abdominal pain. No edema. She awakens every 1 to 1-1/2 hours to go to the bathroom for urination, but she is able to fall back to sleep easily. No headaches. PAST MEDICAL HISTORY 1. 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 2. Anemia. 3. Degenerative disk of lumbar spine. 4. Hypertension. 5. Gastroesophageal reflux disease. 6. Hypothyroidism. 7. Obstructive sleep apnea with nocturnal hypoxemia. 8. Chronic insomnia. 9. Osteopenia. 10. Hypokalemia. 11. Chronic wound infection of abdomen. 12. Deep vein thrombosis of right axillary vein. 13. Diffuse muscle atrophy. 14. Hypoalbuminemia. 15. Colonoscopy causing post procedural bleeding. 16. Acute peritonitis. PAST SURGICAL HISTORY 1. Status post right hemicolectomy for cecal cancer as above. MEDICATIONS Lexapro 20 mg daily. Synthroid 88 mcg daily. Prilosec 40 mg daily. K-Dur 20 MEQ 2 tablets twice daily. Trazodone 150 mg at night. Calcium carbonate 600 mg every 4 hours as needed for heart burn. Lasix 20 mg daily. Hydrocodone/APAP 5/325 mg 1-2 tablets every 4 hours as needed for abdominal pain. Cozaar 50 mg daily. ALLERGIES: Ceclor causes hives. SOCIAL HISTORY: Patient lives here in [place]. Full code status. PHYSICAL EXAMINATION VITAL SIGNS: In the emergency room temperature 97.6, weight 59.4 kg, height 5 feet, 5 inches. Pulse 97. Respiratory rate 32. Blood pressure 150/75. Pulse oxygenation 97% on room air. GENERAL: This is a very pleasant female who is in mild-moderate distress secondary to abdominal pain. HEENT: Her sclerae are clear. Her TMs are clear. Her nares are clear. NG tube is in place. Her oropharynx is clear. Mucous membranes are dry and intact. Lips are dry. NECK: Supple. No carotid bruits. No jugular venous distention. LUNGS: Good aeration throughout and clear. HEART: Regular rate and rhythm without any murmurs, rubs or gallops. ABDOMEN: Wound VAC is in place and is clean, dry and intact. Soft. Moderate midepigastric tenderness with rebound or guarding. Hypoactive bowel sounds. EXTREMITIES: Warm with no clubbing, cyanosis or edema. Chronic venous stasis changes bilaterally. No palpable cords. Negative Homans. Good peripheral dorsalis pedis and posterior pulses. NEUROLOGIC: Alert and oriented x3. Cranial nerves 2-12 are grossly intact without focal deficits. Motor, sensation and DTRs are intact. RECTAL: Rectal performed in the Emergency Room is heme positive. DATA: White count 17.8, hemoglobin 13.1, hematocrit 40.3, platelets 504 with 58.0% neutrophils. No bands. INR is 2.2. Chemistries, sodium is 136, BUN is 18, glucose is 117, AST 48, alkaline phosphatase is 143. Troponin is less than 0.012. Albumin is 3.7. IMAGING: CT of the abdomen and pelvis shows partial mechanical small bowel obstruction with transitional point in the anterior right lower abdomen. Post- hemicolectomy changes, nonobstructive cholelithiasis, hepatic steatosis. Portable CXR shows proper placement of NG tube. No acute infiltrates. EKG: Normal sinus rhythm at a rate of 75. Mathews is normal. Baseline artifact. No acute ST-T wave changes. ASSESSMENT: This is a 71-year-old female who has had a complicated history of cecal carcinoma who has had a complicated postoperative course, who now presents with partial small bowel obstruction. PLAN 1. Fluids, electrolytes and nutrition: Laboratories show mildly low sodium. Albumin normal. NPO. IV fluids. Antiemetics. 2. GI: Appreciate Dr. Ramírez fine [facility]. NG tube has been placed. Will follow closely. Bowel rest. Pain medications. Patient with history of gastroesophageal reflux disease. Continue proton pump inhibitor. 3. Cardiovascular: Patient with history of hypertension. Will continue Cozaar. Watch blood pressures carefully. Also continue Lasix and potassium. History of DVT right axillary vein. Heme positive stools. Hold Coumadin for now. 4. Infectious Disease: Elevated WBC without bandemia. NO F/C/S at home. Unable to obtain lactate secondary to difficult IV access. BCx x 1 pending. Check U/A and UCx. 4. Endocrine: Patient with history of hypothyroidism. Continue thyroid replacement. 5. Psychosocial: Patient with history of depression. Continue Lexapro. Patient with history of insomnia, continue Trazodone. 6. Disposition: Patient admitted to observation. Anticipate 1-2 day hospital stay. She is full COR status. Copies to: Gavin Acosta MD; Quinn Patterson MD. MTDD
[2017-04-09] MEDS ORDERED: CYCLOBENZAPRINE HCL 10 MG TABLET PO PRN ×2 (08:01→15:42)
[2017-04-09] MEDS ORDERED: LIDOCAINE HCL/PF 4% 5 ML AMP TOPICAL PRN (08:01)
--- NOTE | 2017-04-09 08:06 | PROGRESS NOTE: IM APSO ---
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 Assess electrolytes and continue IVF, follow vitals. Still very distended with abnl BS at this time. Current Visit: Yes - Time Spent With Patient Total time spent with greater than 50% in coordination of care (as documented) at patient's floor/unit and/or counseling patient: IM: PN Subjective General: fatigue Gastrointestinal: no abdominal pain (controlled) Musculoskeletal: no pain IM: PN Objective Exam - I&O/Vital Signs I&O: Intake & Output 04/08/17 04/09/17 04/09/17 21:59 05:59 13:59 Intake Total 1250 Output Total 300 Balance 950 Weight 71 kg Intake: IV 1250 Left Hand 1250 Oral 0 Output: Urine 300 Other: Urine Appearance Clear Urine Color Yellow Voiding Method Bedside Commode # Voids 1 # Bowel Movements 0 Vital Signs: Last Vital Signs Temp 36.4 C L 04/09/17 06:21 Pulse 77 04/09/17 06:21 Resp 14 04/09/17 06:21 BP 161/76 04/09/17 06:21 Pulse Ox 91 04/09/17 06:21 Oxygen Flow Rate 1 Oxygen Delivery Method Nasal Cannula - Constitutional General appearance: Present: obese - ENT ENT exam: Present: mucous membranes dry - Respiratory Respiratory exam: Present: clear. Absent: wheezes - Cardiovascular Cardiovascular exam: Present: RRR - GI/Abdominal GI/Abdominal exam: Present: diminished bowel sounds, distended - Extremities Exam Extremities exam: Absent: edema - Lab Labs: Laboratory Last Values WBC 17.8 X 10^3uL (3.9-10.7) H 04/08/17 16:50 RBC 4.63 X 10^6uL (4.20-6.10) 04/08/17 16:50 Hgb 13.1 g/dL (12.0-16.0) 04/08/17 16:50 Hct 40.3 % (36.0-48.0) 04/08/17 16:50 MCV 87.2 fL (80.0-100.0) 04/08/17 16:50 MCH 28.2 pg (29.0-35.0) L 04/08/17 16:50 MCHC 32.3 g/dL (32.0-36.0) 04/08/17 16:50 RDW 15.6 % (11.5-14.5) H 04/08/17 16:50 Plt Count 504 X 10^3uL (130-440) H 04/08/17 16:50 MPV 7.7 fL (7.4-10.4) 04/08/17 16:50 Neutrophils % 68.0 % (54.0-75.0) 04/08/17 16:50 Lymphocytes % 26.8 % (20.0-40.0) 04/08/17 16:50 Eosinophils % 0.1 % (0.0-6.0) 04/08/17 16:50 Basophils % 0.9 % (0.0-2.0) 04/08/17 16:50 Neutrophils # 12.1 X 10^3uL (2.6-6.7) H 04/08/17 16:50 Lymphocytes # 4.8 X 10^3uL (0.8-3.8) H 04/08/17 16:50 Monocytes 4.2 % (2.0-10.0) 04/08/17 16:50 Monocytes # 0.7 X 10^3uL (0.2-1.0) 04/08/17 16:50 Eosinophils # 0.0 X 10^3uL (0.0-0.4) 04/08/17 16:50 Basophils # 0.2 X 10^3uL (0.0-0.1) H 04/08/17 16:50 Capillary INR 2.2 (0.8-1.2) H 04/08/17 18:25 Sodium 136 mmol/L (137-145) L 04/08/17 16:50 Potassium 4.1 mmol/L (3.5-5.1) 04/08/17 16:50 Chloride 101 mmol/L (98-107) 04/08/17 16:50 Carbon Dioxide 24 mmol/L (22-30) 04/08/17 16:50 BUN 18 mg/dL (7-17) H 04/08/17 16:50 Creatinine 0.9 mg/dL (0.5-1.0) 04/08/17 16:50 GFR Calculation > 60 mL/min 04/08/17 16:50 Glucose 117 mg/dL (70-100) H 04/08/17 16:50 Calcium 9.6 mg/dL (8.4-10.2) 04/08/17 16:50 Total Bilirubin 0.6 mg/dL (0.2-1.3) D 04/08/17 16:50 Direct Bilirubin 0.2 mg/dL (0.0-0.4) 04/08/17 16:50 AST 48 U/L (14-36) H 04/08/17 16:50 ALT 42 U/L (9-52) 04/08/17 16:50 Alkaline Phosphatase 143 U/L (38-126) H 04/08/17 16:50 Troponin I < 0.012 ng/mL (0.00-0.034) 04/08/17 16:50 Total Protein 7.5 g/dL (6.3-8.2) D 04/08/17 16:50 Albumin 3.7 g/dL (3.5-5.0) D 04/08/17 16:50 Lipase 76 U/L (23-300) 04/08/17 16:50 Quality Questions - VTE Prophylaxis Assessment VTE Present on Admission?: No Patient at risk for venous thromboembolism?: Yes VTE Risk Level: Low Risk Pharmaceutical VTE prophylaxis contraindication reason: N/A- VTE prophylaxsis ordered Mechanical VTE prophylaxis contraindication reason: N/A- VTE prophylaxsis ordered
[2017-04-09 08:48] LABS: BASOPHILS 0.4 % (0.0-2.0); EOSINOPHILS 0.3 % (0.0-6.0); HEMOGLOBIN 11.6 g/dL (12.0-16.0); LYMPHOCYTES 28.9 % (20.0-40.0); LYMPHOCYTES# 2.8 X 10^3uL (0.8-3.8); MEAN CELL VOLUME 86.8 fL (80.0-100.0); MEAN CORPUS. HGB CONCENTRATION 33.3 g/dL (32.0-36.0); MEAN CORPUSCULAR HEMOGLOBIN 28.9 pg (29.0-35.0); MEAN PLATELET VOLUME 7.3 fL (7.4-10.4); MONOCYTES 4.8 % (2.0-10.0); MONOCYTES# 0.5 X 10^3uL (0.2-1.0); NEUTROPHILS 65.6 % (54.0-75.0); NEUTROPHILS# 6.6 X 10^3uL (2.6-6.7); RED BLOOD COUNT 4.03 X 10^6uL (4.20-6.10); RED CELL DISTRIBUTION WIDTH 15.6 % (11.5-14.5); WHITE BLOOD COUNT 9.9 X 10^3uL (3.9-10.7)
[2017-04-09] MEDS ORDERED: FUROSEMIDE 20 MG TABLET PO SCH (09:00)
[2017-04-09] MEDS ORDERED: WATER IRRIG 1,000 ML BOTTLE ONE (09:08)
[2017-04-09] MEDS: LOSARTAN POTASSIUM 50 MG TABLET PO SCH (09:43)
[2017-04-09] MEDS: ESCITALOPRAM OXALATE 10 MG TABLET PO SCH (09:43)
--- NOTE | 2017-04-09 09:45 | PROGRESS NOTE:General Surgery ---
Assessment and Plan - Date of Encounter Date of Encounter: 04/09/17 (1) Bowel obstruction Status: Acute Assessment and plan: She is improved today. Her NGT was repositioned and seems to be functioning now. 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 Current Visit: Yes - Time Spent With Patient Total time spent with greater than 50% in coordination of care (as documented) at patient's floor/unit and/or counseling patient: ANNA: Gen Surg PN Subjective Patient reports: afebrile, feels better, flatus, no fever, no nausea, no still having pain ANNA: Gen Surgery PN Obj Exam - Latest Vital Signs and I&O Latest Vital Signs/I&O: Vital Signs Temp 36.4 C L 04/09/17 06:21 Pulse 77 04/09/17 06:21 Resp 14 04/09/17 06:21 BP 161/76 04/09/17 06:21 Pulse Ox 91 04/09/17 06:21 Intake & Output 04/08/17 04/09/17 04/09/17 17:59 05:59 17:59 Intake Total 1250 Output Total 300 Balance 950 Weight 71 kg Intake: IV 1250 Left Hand 1250 Oral 0 Output: Urine 300 Other: Urine Appearance Clear Urine Color Yellow Voiding Method Bedside Commode # Voids 1 # Bowel Movements 0 - Exam General physical exam: no distress Respiratory exam: clear to auscultation Abdomen exam: tender, bowel sounds (rare), wound (wound vac) - Lab Labs: Laboratory Last Values WBC 9.9 X 10^3uL (3.9-10.7) 04/09/17 Unknown RBC 4.03 X 10^6uL (4.20-6.10) L 04/09/17 Unknown Hgb 11.6 g/dL (12.0-16.0) L 04/09/17 Unknown Hct 35.0 % (36.0-48.0) L 04/09/17 Unknown MCV 86.8 fL (80.0-100.0) 04/09/17 Unknown MCH 28.9 pg (29.0-35.0) L 04/09/17 Unknown MCHC 33.3 g/dL (32.0-36.0) 04/09/17 Unknown RDW 15.6 % (11.5-14.5) H 04/09/17 Unknown Plt Count 420 X 10^3uL (130-440) 04/09/17 Unknown MPV 7.3 fL (7.4-10.4) L 04/09/17 Unknown Neutrophils % 65.6 % (54.0-75.0) 04/09/17 Unknown Lymphocytes % 28.9 % (20.0-40.0) 04/09/17 Unknown Eosinophils % 0.3 % (0.0-6.0) 04/09/17 Unknown Basophils % 0.4 % (0.0-2.0) 04/09/17 Unknown Neutrophils # 6.6 X 10^3uL (2.6-6.7) 04/09/17 Unknown Lymphocytes # 2.8 X 10^3uL (0.8-3.8) 04/09/17 Unknown Monocytes 4.8 % (2.0-10.0) 04/09/17 Unknown Monocytes # 0.5 X 10^3uL (0.2-1.0) 04/09/17 Unknown Eosinophils # 0.0 X 10^3uL (0.0-0.4) 04/09/17 Unknown Basophils # 0.0 X 10^3uL (0.0-0.1) 04/09/17 Unknown Capillary INR 2.2 (0.8-1.2) H 04/08/17 18:25 Sodium 136 mmol/L (137-145) L 04/08/17 16:50 Potassium 4.1 mmol/L (3.5-5.1) 04/08/17 16:50 Chloride 101 mmol/L (98-107) 04/08/17 16:50 Carbon Dioxide 24 mmol/L (22-30) 04/08/17 16:50 BUN 18 mg/dL (7-17) H 04/08/17 16:50 Creatinine 0.9 mg/dL (0.5-1.0) 04/08/17 16:50 GFR Calculation > 60 mL/min 04/08/17 16:50 Glucose 117 mg/dL (70-100) H 04/08/17 16:50 Calcium 9.6 mg/dL (8.4-10.2) 04/08/17 16:50 Total Bilirubin 0.6 mg/dL (0.2-1.3) D 04/08/17 16:50 Direct Bilirubin 0.2 mg/dL (0.0-0.4) 04/08/17 16:50 AST 48 U/L (14-36) H 04/08/17 16:50 ALT 42 U/L (9-52) 04/08/17 16:50 Alkaline Phosphatase 143 U/L (38-126) H 04/08/17 16:50 Troponin I < 0.012 ng/mL (0.00-0.034) 04/08/17 16:50 Total Protein 7.5 g/dL (6.3-8.2) D 04/08/17 16:50 Albumin 3.7 g/dL (3.5-5.0) D 04/08/17 16:50 Lipase 76 U/L (23-300) 04/08/17 16:50
[2017-04-09 09:58] LABS: INR W/ CAPI DRAW 2.2 (0.8-1.2)
[2017-04-09] MEDS: HYDROmorphone HCL 1 MG/ML SYR IV PRN ×2 (10:44→14:49)
--- NOTE | 2017-04-09 14:35 | RADIOLOGY REPORT ---
Initial portable view of the chest at 0909 hours is compared with the previous date. Heart, vessels and lungs are stable and unremarkable. Again noted is a nasogastric tube. The distal tip of the tube is now located in the expected mid portion of the esophagus. The findings were personally reviewed with Dr. Patterson. A second film at 0944 hours demonstrates the nasogastric tube has been advanced with its tip now in the expected region of the body of the stomach. IMPRESSION: Nasogastric tube now projects in appropriate position. The findings were reviewed with Dr. Patterson. [facility]ITALL[facility]
[2017-04-09] MEDS ORDERED: WARFARIN SODIUM 5 MG TABLET PO SCH (16:00)
[2017-04-09] MEDS ORDERED: LACTATED RINGERS 1,000 ML IV SCH (16:00)
[2017-04-09] MEDS: ACETAMINOPHEN 1,000 MG/100 ML VIAL IV PRN (17:00)
[2017-04-09] MEDS: traZODone HCL 50 MG TABLET PO SCH (20:07)
[2017-04-09] MEDS: POTASSIUM CHLORIDE/D5 0.45%NAC 1,000 ML IV SCH (20:07)
[2017-04-09] MEDS: CYCLOBENZAPRINE HCL 10 MG TABLET PO PRN (20:07)
[2017-04-10] MEDS: POTASSIUM CHLORIDE/D5 0.45%NAC 1,000 ML IV SCH (05:39)
[2017-04-10] MEDS: ACETAMINOPHEN 1,000 MG/100 ML VIAL IV PRN (05:40)
[2017-04-10] MEDS: LEVOTHYROXINE 88 MCG TABLET PO SCH (05:40)
[2017-04-10] MEDS: PANTOPRAZOLE 40 MG TABLET PO SCH (05:40)
[2017-04-10] MEDS: CYCLOBENZAPRINE HCL 10 MG TABLET PO PRN ×2 (05:47→20:32)
[2017-04-10 06:30] LABS: BLOOD UREA NITROGEN 7 mg/dL (7-17); CHLORIDE 108 mmol/L (98-107); CREATININE 0.6 mg/dL (0.5-1.0); EST GLOMERULAR FILTRATION RATE > 60 mL/min; GLUCOSE 91 mg/dL (70-100); POTASSIUM 3.4 mmol/L (3.5-5.1); SODIUM 138 mmol/L (137-145)
[2017-04-10] MEDS ORDERED: LEVOTHYROXINE 88 MCG TABLET PO SCH (06:30)
--- NOTE | 2017-04-10 07:56 | PROGRESS NOTE: IM APSO ---
Assessment and Plan - Date of Encounter Date of Encounter: 04/10/17 (1) Bowel obstruction Status: Acute Assessment and plan: Improving clinically. Continue NG for now. Gastrografen study today. Current Visit: Yes (2) Elevated white blood cell count Status: Resolved Assessment and plan: Resolved. Current Visit: Yes (3) Chronic wound infection of abdomen Status: Acute Assessment and plan: Improving with wound vac. Current Visit: No (4) DVT of axillary vein, acute right Status: Acute Assessment and plan: Now 1 month out after PICC associated R axillary DVT. PICC out for 1 month. Will D/C warfarin since she may need surgery. Use prophylactic doses of Lovenox while in hosp. Current Visit: No (5) Hypertension Status: Acute Assessment and plan: Not quite controlled on her usual Losartan 50. Follow. Current Visit: No (6) Generalized weakness Status: Chronic Assessment and plan: Chronic. Slowly improving. Current Visit: No (7) Hypokalemia Status: Acute Assessment and plan: Worsened after switching from IV with KCL to LR for 1 liter. Back on IV KCL so should be okay, especially if NG is stopped today. Current Visit: Yes - Time Spent With Patient Total time spent with greater than 50% in coordination of care (as documented) at patient's floor/unit and/or counseling patient: IM: PN Subjective General: fatigue (but feeling much better) Gastrointestinal: no abdominal pain, no nausea, no vomiting, no constipation ( had BM yesterday) Musculoskeletal: no pain, no swelling IM: PN Objective Exam - I&O/Vital Signs I&O: Intake & Output 04/09/17 04/10/17 04/10/17 21:59 05:59 13:59 Intake Total 2357 100 Output Total 800 1300 Balance 1557 -1200 Intake: IV 7 Left Upper arm 7 Oral 300 100 Output: Gastric Drainage 350 Urine 450 1300 Other: Urine Appearance Clear Clear Urine Color Yellow Yellow Stool Size Moderate Stool Characteristics Soft Formed Voiding Method Toilet Bedside Commode # Voids 2 3 # Bowel Movements 1 0 Vital Signs: Last Vital Signs Temp 36.6 C 04/10/17 06:21 Pulse 61 04/10/17 06:21 Resp 15 04/10/17 06:21 BP 159/83 04/10/17 06:21 Pulse Ox 96 04/10/17 06:21 Oxygen Flow Rate 2 Oxygen Delivery Method Nasal Cannula - Constitutional General appearance: Present: obese - ENT ENT exam: Present: mucous membranes dry - Respiratory Respiratory exam: Present: clear. Absent: wheezes - Cardiovascular Cardiovascular exam: Present: RRR - GI/Abdominal GI/Abdominal exam: Present: diminished bowel sounds, distended, soft. Absent: tenderness - Extremities Exam Extremities exam: Absent: edema - Psychiatric Psychiatric exam: Present: normal mood - Allied Health Notes Allied health notes reviewed: nursing - Lab Labs: Laboratory Last Values WBC 9.9 X 10^3uL (3.9-10.7) 04/09/17 Unknown RBC 4.03 X 10^6uL (4.20-6.10) L 04/09/17 Unknown Hgb 11.6 g/dL (12.0-16.0) L 04/09/17 Unknown Hct 35.0 % (36.0-48.0) L 04/09/17 Unknown MCV 86.8 fL (80.0-100.0) 04/09/17 Unknown MCH 28.9 pg (29.0-35.0) L 04/09/17 Unknown MCHC 33.3 g/dL (32.0-36.0) 04/09/17 Unknown RDW 15.6 % (11.5-14.5) H 04/09/17 Unknown Plt Count 420 X 10^3uL (130-440) 04/09/17 Unknown MPV 7.3 fL (7.4-10.4) L 04/09/17 Unknown Neutrophils % 65.6 % (54.0-75.0) 04/09/17 Unknown Lymphocytes % 28.9 % (20.0-40.0) 04/09/17 Unknown Eosinophils % 0.3 % (0.0-6.0) 04/09/17 Unknown Basophils % 0.4 % (0.0-2.0) 04/09/17 Unknown Neutrophils # 6.6 X 10^3uL (2.6-6.7) 04/09/17 Unknown Lymphocytes # 2.8 X 10^3uL (0.8-3.8) 04/09/17 Unknown Monocytes 4.8 % (2.0-10.0) 04/09/17 Unknown Monocytes # 0.5 X 10^3uL (0.2-1.0) 04/09/17 Unknown Eosinophils # 0.0 X 10^3uL (0.0-0.4) 04/09/17 Unknown Basophils # 0.0 X 10^3uL (0.0-0.1) 04/09/17 Unknown PT Cancelled 04/09/17 Unknown Capillary INR 1.9 (0.8-1.2) H D 04/10/17 06:17 INR Cancelled 04/09/17 Unknown Sodium 138 mmol/L (137-145) 04/10/17 06:17 Potassium 3.4 mmol/L (3.5-5.1) L 04/10/17 06:17 Chloride 108 mmol/L (98-107) H 04/10/17 06:17 Carbon Dioxide 16 mmol/L (22-30) L 04/10/17 06:17 BUN 7 mg/dL (7-17) D 04/10/17 06:17 Creatinine 0.6 mg/dL (0.5-1.0) 04/10/17 06:17 GFR Calculation > 60 mL/min 04/10/17 06:17 Glucose 91 mg/dL (70-100) 04/10/17 06:17 Calcium Not Reportable 04/10/17 06:17 Total Bilirubin 0.6 mg/dL (0.2-1.3) D 04/08/17 16:50 Direct Bilirubin 0.2 mg/dL (0.0-0.4) 04/08/17 16:50 AST 48 U/L (14-36) H 04/08/17 16:50 ALT 42 U/L (9-52) 04/08/17 16:50 Alkaline Phosphatase 143 U/L (38-126) H 04/08/17 16:50 Troponin I < 0.012 ng/mL (0.00-0.034) 04/08/17 16:50 Total Protein 7.5 g/dL (6.3-8.2) D 04/08/17 16:50 Albumin 3.7 g/dL (3.5-5.0) D 04/08/17 16:50 Albumin/Globulin Ratio Cancelled 04/09/17 Unknown Lipase 76 U/L (23-300) 04/08/17 16:50
--- NOTE | 2017-04-10 08:44 | PROGRESS NOTE:General Surgery ---
Assessment and Plan - Date of Encounter Date of Encounter: 04/10/17 (1) Bowel obstruction Status: Acute Assessment and plan: Seems to be improving but still not cleared. Will check gastrograffin study through NGT. 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 Current Visit: No - Time Spent With Patient Total time spent with greater than 50% in coordination of care (as documented) at patient's floor/unit and/or counseling patient: ANNA: Gen Surg PN Subjective Patient reports: afebrile, bowel movement (several yesterday), feels better, flatus (minimal), no fever, no nausea, no still having pain ANNA: Gen Surgery PN Obj Exam - Latest Vital Signs and I&O Latest Vital Signs/I&O: Vital Signs Temp 36.6 C 04/10/17 06:21 Pulse 61 04/10/17 06:21 Resp 15 04/10/17 08:09 BP 159/83 04/10/17 06:21 Pulse Ox 96 04/10/17 08:09 Intake & Output 04/09/17 04/10/17 04/10/17 17:59 05:59 17:59 Intake Total 2357 100 Output Total 800 1300 Balance 1557 -1200 Intake: IV 7 Left Upper arm 2056 Oral 300 100 Output: Gastric Drainage 350 Urine 450 1300 Other: Urine Appearance Clear Clear Clear Urine Color Yellow Yellow Yellow Stool Size Moderate Moderate Stool Characteristics Soft Soft Formed Formed Voiding Method Toilet Bedside Commode Bedside Commode # Voids 2 3 # Bowel Movements 1 0 - Exam Respiratory exam: clear to auscultation Abdomen exam: bowel sounds (still hypoactive), soft, distended (less today), wound (wound vac) - Lab Labs: Laboratory Last Values WBC 9.9 X 10^3uL (3.9-10.7) 04/09/17 Unknown RBC 4.03 X 10^6uL (4.20-6.10) L 04/09/17 Unknown Hgb 11.6 g/dL (12.0-16.0) L 04/09/17 Unknown Hct 35.0 % (36.0-48.0) L 04/09/17 Unknown MCV 86.8 fL (80.0-100.0) 04/09/17 Unknown MCH 28.9 pg (29.0-35.0) L 04/09/17 Unknown MCHC 33.3 g/dL (32.0-36.0) 04/09/17 Unknown RDW 15.6 % (11.5-14.5) H 04/09/17 Unknown Plt Count 420 X 10^3uL (130-440) 04/09/17 Unknown MPV 7.3 fL (7.4-10.4) L 04/09/17 Unknown Neutrophils % 65.6 % (54.0-75.0) 04/09/17 Unknown Lymphocytes % 28.9 % (20.0-40.0) 04/09/17 Unknown Eosinophils % 0.3 % (0.0-6.0) 04/09/17 Unknown Basophils % 0.4 % (0.0-2.0) 04/09/17 Unknown Neutrophils # 6.6 X 10^3uL (2.6-6.7) 04/09/17 Unknown Lymphocytes # 2.8 X 10^3uL (0.8-3.8) 04/09/17 Unknown Monocytes 4.8 % (2.0-10.0) 04/09/17 Unknown Monocytes # 0.5 X 10^3uL (0.2-1.0) 04/09/17 Unknown Eosinophils # 0.0 X 10^3uL (0.0-0.4) 04/09/17 Unknown Basophils # 0.0 X 10^3uL (0.0-0.1) 04/09/17 Unknown PT Cancelled 04/09/17 Unknown Capillary INR 1.9 (0.8-1.2) H D 04/10/17 06:17 INR Cancelled 04/09/17 Unknown Sodium 138 mmol/L (137-145) 04/10/17 06:17 Potassium 3.4 mmol/L (3.5-5.1) L 04/10/17 06:17 Chloride 108 mmol/L (98-107) H 04/10/17 06:17 Carbon Dioxide 16 mmol/L (22-30) L 04/10/17 06:17 BUN 7 mg/dL (7-17) D 04/10/17 06:17 Creatinine 0.6 mg/dL (0.5-1.0) 04/10/17 06:17 GFR Calculation > 60 mL/min 04/10/17 06:17 Glucose 91 mg/dL (70-100) 04/10/17 06:17 Calcium Not Reportable 04/10/17 06:17 Total Bilirubin 0.6 mg/dL (0.2-1.3) D 04/08/17 16:50 Direct Bilirubin 0.2 mg/dL (0.0-0.4) 04/08/17 16:50 AST 48 U/L (14-36) H 04/08/17 16:50 ALT 42 U/L (9-52) 04/08/17 16:50 Alkaline Phosphatase 143 U/L (38-126) H 04/08/17 16:50 Troponin I < 0.012 ng/mL (0.00-0.034) 04/08/17 16:50 Total Protein 7.5 g/dL (6.3-8.2) D 04/08/17 16:50 Albumin 3.7 g/dL (3.5-5.0) D 04/08/17 16:50 Albumin/Globulin Ratio Cancelled 04/09/17 Unknown Lipase 76 U/L (23-300) 04/08/17 16:50 Quality Questions - VTE Prophylaxis Assessment VTE Present on Admission?: Yes Patient at risk for venous thromboembolism?: Yes VTE Risk Level: Moderate Risk Pharmaceutical VTE prophylaxis contraindication reason: not indicated Mechanical VTE prophylaxis contraindication reason: N/A- VTE prophylaxsis ordered
[2017-04-10] MEDS ORDERED: POTASSIUM CHLORIDE ER 20 MEQ TABLET PO SCH (09:00)
[2017-04-10] MEDS ORDERED: POTASSIUM CHLORIDE/D5 0.45%NAC 1,000 ML IV SCH (09:00)
[2017-04-10] MEDS: ESCITALOPRAM OXALATE 10 MG TABLET PO SCH (10:12)
[2017-04-10] MEDS: LOSARTAN POTASSIUM 50 MG TABLET PO SCH (10:12)
[2017-04-10 13:53] LABS: URINE APPEARANCE CLEAR; URINE BILIRUBIN NEGATIVE (NEGATIVE); URINE COLOR YELLOW; URINE GLUCOSE NORMAL (NEGATIVE); URINE KETONE NEGATIVE (NEGATIVE); URINE LEUKOCYTE ESTERASE NEGATIVE (NEGATIVE); URINE MUCUS NONE SEEN (Up to 25%); URINE NITRITE NEGATIVE (NEGATIVE); URINE PH 5.5 (5-7); URINE PROTEIN NEGATIVE (NEG - TRACE); URINE RBC NONE SEEN (0-5/hpf); URINE SPECIFIC GRAVITY 1.015 (0.001-1.035); URINE UROBILINOGEN 0.2mg/dL (Normal) (NEG-1mg/dL)
[2017-04-10 13:54] LABS: URINE BACTERIA NONE SEEN (<10/hpf); URINE BLOOD NEGATIVE (NEGATIVE); URINE SPERM NONE SEEN; URINE SQUAMOUS EPITHELIAL CELL 0-5/hpf (<= 15/hpf); URINE WBC 0-4/hpf (0-4/hpf)
[2017-04-10] MEDS ORDERED: ACETAMINOPHEN 325 MG TABLET PO PRN (17:35)
--- NOTE | 2017-04-10 18:12 | RADIOLOGY REPORT ---
REASON FOR EXAMINATION: Evaluate small bowel obstruction FINDINGS: Routine Gastrografin small bowel series was performed. Contrast was administered via nasogastric tube. At one hour contrast is seen throughout the small bowel without dilatation identified. Six hour film demonstrates contrast throughout the colon extending to the rectal vault. IMPRESSION: Normal transit of contrast as described. MTDD
[2017-04-10] MEDS ORDERED: BENZOCAINE/MENTHOL 1 EACH LOZENGE PO PRN (19:38)
[2017-04-10] MEDS: traZODone HCL 50 MG TABLET PO SCH (20:32)
[2017-04-10] MEDS ORDERED: traZODone HCL 50 MG TABLET PO SCH (21:00)
[2017-04-11 01:04] VITALS: PULSE 70; RESP 18
[2017-04-11] MEDS: LEVOTHYROXINE 88 MCG TABLET PO SCH (05:40)
[2017-04-11] MEDS: PANTOPRAZOLE 40 MG TABLET PO SCH (05:40)
[2017-04-11 05:47] VITALS: BP 142/72; TEMP 97.2
[2017-04-11 07:38] LABS: BASOPHILS 0.3 % (0.0-2.0); EOSINOPHILS# 0.1 X 10^3uL (0.0-0.4); HEMATOCRIT 35.1 % (36.0-48.0); HEMOGLOBIN 11.5 g/dL (12.0-16.0); LYMPHOCYTES 54.3 % (20.0-40.0); LYMPHOCYTES# 4.8 X 10^3uL (0.8-3.8); MEAN CELL VOLUME 87.2 fL (80.0-100.0); MEAN CORPUS. HGB CONCENTRATION 32.7 g/dL (32.0-36.0); MEAN CORPUSCULAR HEMOGLOBIN 28.5 pg (29.0-35.0); MEAN PLATELET VOLUME 7.4 fL (7.4-10.4); MONOCYTES 5.1 % (2.0-10.0); MONOCYTES# 0.4 X 10^3uL (0.2-1.0); NEUTROPHILS 39.3 % (54.0-75.0); NEUTROPHILS# 3.4 X 10^3uL (2.6-6.7); PLATELET COUNT 461 X 10^3uL (130-440); RED BLOOD COUNT 4.02 X 10^6uL (4.20-6.10); RED CELL DISTRIBUTION WIDTH 15.2 % (11.5-14.5); WHITE BLOOD COUNT 8.7 X 10^3uL (3.9-10.7)
[2017-04-11 07:45] LABS: BLOOD UREA NITROGEN 6 mg/dL (7-17); CALCIUM 8.7 mg/dL (8.4-10.2); CHLORIDE 106 mmol/L (98-107); CREATININE 0.7 mg/dL (0.5-1.0); EST GLOMERULAR FILTRATION RATE > 60 mL/min; GLUCOSE 87 mg/dL (70-100); POTASSIUM 3.7 mmol/L (3.5-5.1); SODIUM 138 mmol/L (137-145)
--- NOTE | 2017-04-11 08:49 | DC SUMMARY: Gen Surgery Note ---
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 ROBBINS is a 71 year old female admitted on Saturday night with symptoms of a partial small bowel obstruction. She had an NGT placed and improved over the next few days. On Saturday she underwent a gastrografin study which showed contrast into the colon at 6 hours. Her NGT was removed and was able to tolerate a clear liquid diet. She will be discharged today and follow up with Dr. Emmanuel next week. She may be able to be discharged from [facility]. Discharge - Patient/Caregiver Discharge Instructions Activity Level: As tolerated Diet: Initially low residue diet but you can advance to a higher fiber diet if tolerated. Follow up: SONIYA EMMANUEL [] - 04/15/17 11:00 am Overall discharge status: patient is progressing back to baseline Disposition: HOME HEALTH CARE Gen Surgery: Discharge Exam - Latest Vital Signs and I&O Latest Vital Signs/I&O: Vital Signs Temp 36.2 C L 04/11/17 05:46 Pulse 70 04/11/17 05:46 Resp 18 04/11/17 05:46 BP 142/72 04/11/17 05:46 Pulse Ox 92 04/11/17 05:46 Intake & Output 04/10/17 04/11/17 04/11/17 17:59 05:59 17:59 Intake Total 600 350 Output Total 260 460 Balance 340 -110 Weight 69.8 kg Intake: IV 0 Left Upper arm 0 Oral 600 350 Output: Drainage 10 10 Bilateral Medial Abdomen 10 10 Urine 250 450 Other: Urine Appearance Clear Clear Urine Color Yellow Yellow Stool Size Large Moderate Stool Characteristics Soft Liquid Liquid Voiding Method Toilet Toilet # Voids 2 2 # Bowel Movements 3 2 - Exam Respiratory exam: clear to auscultation Abdomen exam: bowel sounds (still hypoactive), soft, distended, wound (wound vac ) Discharge Summary Data - Medication History Medication History: Home Medications Escitalopram Oxalate [Lexapro*] 20 mg PO DAILY 04/09/17 Furosemide [Lasix*] 40 mg PO DAILY 04/09/17 Levothyroxine [Synthroid*] 88 mcg PO DAILY 04/09/17 Losartan Potassium [Cozaar*] 100 mg PO DAILY 04/09/17 Oxybutynin Chloride [Ditropan*] 5 mg PO BID 04/09/17 Pantoprazole [Pantoprazole Sodium*] 40 mg PO DAILY 04/09/17 Potassium Chloride [Klor-Con M10] 1 tab PO DAILY 04/09/17 Warfarin Sodium [Coumadin*] 2.5 mg PO DAILY 04/09/17 Warfarin Sodium [Coumadin*] 5 mg PO 3XW 04/09/17 traZODone HCL [Trazodone HCl*] 150 mg PO HS 04/09/17 Inpatient Medications 04/08/17 19:56 Calcium Carbonate [Tums X-Str] 600 mg PO Q4H PRN 04/09/17 08:01 Lidocaine HCl/Pf 4% [Xylocaine 4%] 5 - 10 ml TOPICAL PRN PRN 04/09/17 09:00 Losartan Potassium [Cozaar] 50 mg PO DAILY 04/09/17 15:41 Acetaminophen [Ofirmev Inj] 1,000 mg IV Q6H PRN 04/09/17 16:30 Cyclobenzaprine HCl [Flexeril] 5 - 10 mg PO TID PRN 04/10/17 17:35 Acetaminophen [Tylenol] 650 mg PO Q6H PRN 04/10/17 19:38 Benzocaine/Menthol [Cepacol Sorethroat Lozenges] 1 each PO PRN PRN 04/10/17 21:00 traZODone HCL [Desyrel] 150 mg PO HS Procedures and tests throughout hospitalization: Completed Lab Orders 04/09/17 INR W/ CAPI DRAW [HEM] Routine 04/09/17 08:35 urinalysis [UA W/ MICRO -CULTURE IF IND] [URINE] Routine 04/10/17 06:17 BMP [BASIC METABOLIC PANEL] [CHEM] AMDRAW INR W/O CAPI DRAW [HEM] Routine 04/11/17 07:25 BMP [BASIC METABOLIC PANEL] [CHEM] Routine CBC AUTO DIF, MDIF/RMOR IF IND [HEM] Routine Completed Imaging Orders 04/09/17 09:05 cxr1v [CHEST; SINGLE VIEW 41644] [RAD] Stat 04/09/17 09:37 cxr1v [CHEST; SINGLE VIEW 81271] [RAD] Urgent 04/10/17 08:37 SMALL INT; MUTI FILMS 14068 [RAD] Routine Pending Orders 04/08/17 19:56 Calcium Carbonate [Tums X-Str] 600 mg PO Q4H PRN 04/08/17 19:59 Notify Physician . 04/09/17 08:01 Lidocaine HCl/Pf 4% [Xylocaine 4%] 5 - 10 ml TOPICAL PRN PRN 04/09/17 08:06 Sequential Compression Device IN BED OR CHAIR LUCAS Hose . 04/09/17 09:00 Losartan Potassium [Cozaar] 50 mg PO DAILY 04/09/17 15:41 Acetaminophen [Ofirmev Inj] 1,000 mg IV Q6H PRN 04/09/17 16:30 Cyclobenzaprine HCl [Flexeril] 5 - 10 mg PO TID PRN 04/10/17 17:35 Acetaminophen [Tylenol] 650 mg PO Q6H PRN 04/10/17 19:38 Benzocaine/Menthol [Cepacol Sorethroat Lozenges] 1 each PO PRN PRN 04/10/17 21:00 traZODone HCL [Desyrel] 150 mg PO HS 04/10/17 Lunch Clear Liquid [DIET] Labs on day of discharge: Labs from last 24 hours 04/11/17 04/09/17 07:25 08:35 WBC 8.7 RBC 4.02 L Hgb 11.5 L Hct 35.1 L MCV 87.2 MCH 28.5 L MCHC 32.7 RDW 15.2 H Plt Count 461 H MPV 7.4 Neutrophils % 39.3 L Lymphocytes % 54.3 H Eosinophils % 1.0 Basophils % 0.3 Neutrophils # 3.4 Lymphocytes # 4.8 H Monocytes 5.1 Monocytes # 0.4 Eosinophils # 0.1 Basophils # 0.0 Sodium 138 Potassium 3.7 Chloride 106 Carbon Dioxide 24 BUN 6 L Creatinine 0.7 GFR Calculation > 60 Glucose 87 Calcium 8.7 Urine Color Yellow Urine Appearance Clear Urine pH 5.5 Ur Specific [place] 1.015 Urine Protein Negative Urine Ketones Negative Urine Blood Negative Urine Nitrate Negative Urine Bilirubin Negative Urine Urobilinogen 0.2mg/dl (normal) Ur Leukocyte Esterase Negative Urine RBC None seen Urine WBC 0-4/hpf Ur Squamous Epith Cells 0-5/hpf Urine Bacteria None seen Urine Mucus None seen Urine Sperm None seen Urine Glucose Normal Preliminary micro results at discharge 04/08/17 20:00 Blood Culture - Preliminary Blood NO GROWTH TO DATE
[2017-04-11] MEDS: ESCITALOPRAM OXALATE 10 MG TABLET PO SCH (08:57)
[2017-04-11] MEDS: LOSARTAN POTASSIUM 50 MG TABLET PO SCH (08:57)
[2017-04-11] MEDS: CYCLOBENZAPRINE HCL 10 MG TABLET PO PRN (08:57)
[2017-04-11 09:15] VITALS: O2SAT 91
== END 2017-04-11 08:56 | disposition home or self-care (01) ==
LOC: ER 16:14 → IN 19:54
PROVIDERS: ADMIT Surgery; ATTEND Surgery
DX: K56.60 Unspecified intestinal obstruction (principal); Z79.01 Long term (current) use of anticoagulants; Z85.038 Personal history of other malignant neoplasm of large intestine; I82.A21 Chronic embolism and thrombosis of right axillary vein; S31.109D Unspecified open wound of abdominal wall, unspecified quadrant without penetration into peritoneal cavity, subsequent encounter; R53.1 Weakness; E86.0 Dehydration; G47.00 Insomnia, unspecified; M85.89 Other specified disorders of bone density and structure, multiple sites; E87.6 Hypokalemia; M62.50 Muscle wasting and atrophy, not elsewhere classified, unspecified site; E88.09 Other disorders of plasma-protein metabolism, not elsewhere classified; E03.9 Hypothyroidism, unspecified; M51.36 Other intervertebral disc degeneration, lumbar region; Z79.899 Other long term (current) drug therapy
CPT/HCPCS: 36415; 71010; 74176; 74250; 80048; 80076; 81001; 83690; 84484; 85025; 85610; 87040; 96361; 96365; 96375; 96376; 99217; 99219; 99224; 99225; 99284; 99285; A4217; G0378; J1170; J2405; J2550; J3480; J7120

== ENCOUNTER 2017-04-18 14:30 | Observation (INO) | payer MEDICARE, BC ==
[2017-04-18 15:20] LABS: BASOPHILS 0.3 % (0.0-2.0); EOSINOPHILS 0.1 % (0.0-6.0); HEMATOCRIT 37.2 % (36.0-48.0); HEMOGLOBIN 12.5 g/dL (12.0-16.0); LYMPHOCYTES 14.3 % (20.0-40.0); MEAN CELL VOLUME 86.2 fL (80.0-100.0); MEAN CORPUS. HGB CONCENTRATION 33.7 g/dL (32.0-36.0); MEAN CORPUSCULAR HEMOGLOBIN 29.1 pg (29.0-35.0); MEAN PLATELET VOLUME 7.8 fL (7.4-10.4); MONOCYTES 2.7 % (2.0-10.0); MONOCYTES# 0.4 X 10^3uL (0.2-1.0); NEUTROPHILS 82.6 % (54.0-75.0); NEUTROPHILS# 11.9 X 10^3uL (2.6-6.7); PLATELET COUNT 458 X 10^3uL (130-440); RED BLOOD COUNT 4.31 X 10^6uL (4.20-6.10); RED CELL DISTRIBUTION WIDTH 15.6 % (11.5-14.5); WHITE BLOOD COUNT 14.3 X 10^3uL (3.9-10.7)
[2017-04-18 15:28] LABS: ALBUMIN 3.6 g/dL (3.5-5.0); ALKALINE PHOSPHATASE 99 U/L (38-126); ALT 40 U/L (9-52); AST 34 U/L (14-36); BILIRUBIN, DIRECT 0.1 mg/dL (0.0-0.4); BILIRUBIN, TOTAL 0.7 mg/dL (0.2-1.3); BLOOD UREA NITROGEN 12 mg/dL (7-17); CALCIUM 9.5 mg/dL (8.4-10.2); CHLORIDE 104 mmol/L (98-107); CREATININE 0.7 mg/dL (0.5-1.0); EST GLOMERULAR FILTRATION RATE > 60 mL/min; GLUCOSE 113 mg/dL (70-100); LIPASE 41 U/L (23-300); POTASSIUM 3.7 mmol/L (3.5-5.1); SODIUM 141 mmol/L (137-145); TOTAL PROTEIN 7.1 g/dL (6.3-8.2)
--- NOTE | 2017-04-18 15:44 | RADIOLOGY REPORT ---
HISTORY: Vomiting, history of bowel obstruction COMPARISON: Chest x-ray April 09, 2017, CAT scan abdomen and pelvis April 08, 2017 FINDINGS: 5 views of the abdomen obtained. Frontal view of the chest shows mild cardiomegaly. There may be a small left effusion. No evidence fo r free air. Imaging of the abdomen demonstrates numerous dilated small bowel loops in the mid and left abdomen, a ssociated with numerous air-fluid levels. Findings are consistent with small bowel obstruction. The c olon appears decompressed. Calcified gallstone is again noted. IMPRESSION: Numerous dilated small bowel loops in the left midabdomen with air-fluid levels consistent with small bowel obstruction. Calcified gallstone. Small left effusion without evidence of free air. Final Electronic Signature: This report was electronically signed by Ronnie Nettles MD on 04/18/2017 3 :42 PM. [email or web address] /
--- NOTE | 2017-04-18 16:24 | ER PHYSICIAN DOCUMENTATION ---
Physician Documentation [facility] Name:Aislinn Broderick Age:71 yrs Sex:Female :1945 Arrival Date:04/18/2017 Time:14:30 Bed3 Private MD:Gavin Acosta ED, John Disposition: 04/18/17 15:57 Admit ordered for Quinn Patterson. Preliminary diagnosis are Bowel Obstruction, Dehydration. - Bed requested for Medical/Surgical. - Condition is Fair. - Problem is an ongoing problem. - Symptoms have worsened. 23 HR OBS Yes HPI: 04/18 15:43 This 71 yrs old Female presents to ER via Private Vehicle with complaints of jm Vomiting. 15:43 The patient presents to the emergency department with nausea, with vomiting, with jm associated abdominal pain, of the abdomen diffusely, described as dull. Onset: The symptom(s)/episode began/occurred today. 15:51 Possible causes: hx of. The symptoms are alleviated by nothing. Associated signs and jm symptoms: Pertinent positives: nausea, vomiting. Severity of symptoms: in the emergency department the symptoms are unchanged. The patient has experienced similar episodes in the past, a few times, and the symptoms today are exactly the same, to when the patient was apparently diagnosed with SBO. The patient has recently been admitted at [facility], by Dr. Patterson last week and had a partial SBO. . Pt's had 15-20 episodes of vomiting today, the last of which were hardly anything but "bile". Pain ranges from 2-6 depending if she's about to vomit or resting. . Historical: - Allergies: Ceclor; - Home Meds: 1. Colace oral 2. Miralax Oral 3. losartan 50 mg oral tab 4. levothyroxine 88 mcg oral cap 5. Lexapro Oral 6. trazodone 150 mg oral tab 7. Oxybutynin Chloride Oral 8. Flexeril Oral 9. Lasix Oral 10. acetaminophen 650 mg oral tab - PMHx: ARTHRITIS; colon cancer; ileus; abdominal abscesses; HYPOTHYROIDISM; Hypertension; DEPRESSION; leaky bladder; gall stones; - PSHx: colectomy; APPENDECTOMY; left knee replacement; Tonsillectomy; vein stripping; - Tetanus: unknown. - Ebola Screening: : Patient negative for fever greater than or equal to 101.5 degrees Fahrenheit, and additional compatible Ebola Virus Disease symptoms. Patient denies exposure to infectious person. Patient denies travel to an Ebola-affected area in the 21 days before illness onset. No symptoms or risks identified at this time. . - Immunization history: Pneumococcal vaccine is up to date, Flu Vaccine < 1 year. - Social history: Smoking status: Patient states was never smoker of tobacco. Patient/guardian denies using alcohol, marijuana. ROS: 15:54 Constitutional: Negative for fatigue, fever. jm 15:54 ENT: Negative for rhinorrhea, sinus congestion, sinus pain. 15:54 Cardiovascular: Negative for chest pain, palpitations. 15:54 Respiratory: Negative for cough, shortness of breath. 15:54 Abdomen/GI: Positive for nausea, vomiting, abdominal cramps. 15:54 Back: Negative for injury or acute deformity. 15:54 : Negative for urinary symptoms. 15:54 Skin: Negative for rash. 15:54 All other systems are negative. Exam: 15:55 Constitutional: The patient appears alert, awake, comfortable. jm 15:55 Eyes: Periorbital structures: appear normal, Conjunctiva: normal. 15:55 ENT: Mouth: is normal, Voice: is normal. 15:55 Neck: Thyroid: appears normal, Trachea: is midline with no obvious abnormalities. 15:55 Cardiovascular: Rate: normal, Rhythm: regular. 15:55 Respiratory: Respirations: normal, Breath sounds: are normal. 15:55 Abdomen/GI: Inspection: distension, that is moderate, Bowel sounds: absent, in all quadrants, Palpation: soft, mild abdominal tenderness, in all quadrants. 15:55 Back: pain, is absent, CVA tenderness, is absent. 15:55 : CVA tenderness, is absent, Bladder: is normal. 15:55 Neuro: Mentation: is normal, Memory: is normal. 15:55 Psych: Behavior/mood is pleasant, cooperative, Affect is calm. Vital Signs: 14:38 BP 172 / 76 (auto/); sj 14:39 Pulse Ox 90% ; sj 15:10 BP 172 / 76; Pulse 79; Resp 18; Temp 98.0(O); Pulse Ox 93% on R/A; Weight 72.57 kg; sj Height 5 ft. 5 in. (165.10 cm); Pain 2/10; 15:23 BP 177 / 77 (auto/); sj 15:24 BP 177 / 77; Pulse 71; Resp 16; Pulse Ox 91% on R/A; Pain 1/10; sj 15:24 Pulse Ox 89% ; sj 15:30 Pulse Ox 86% on R/A; sj 15:53 BP 162 / 76; Pulse 74; Pulse Ox 96% on 1 lpm NC; sj 16:21 BP 165 / 80; Pulse 81; Pulse Ox 96% on 1 lpm NC; sj 15:10 Body Mass Index 26.63 (72.57 kg, 165.10 cm) MDM: 14:58 Patient medically screened. 15:56 Differential diagnosis: Nonspecific abd pain, gastritis, pancreatitis, SBO. Data jm reviewed: vital signs, nurses notes, old medical records, lab test result(s), radiologic studies, and as a result, I will initiate a consult, with a general surgeon. Test interpretation: by ED physician or midlevel provider: plain radiologic studies. Counseling: I had a detailed discussion with the patient and/or guardian regarding: the historical points, exam findings, and any diagnostic results supporting the discharge/admit diagnosis, lab results, the need for further work-up and treatment in the hospital. Medication response: The patient's symptoms have improved, zofran IVF. Physician consultation: Quinn Patterson MD regarding admission, to the floor, need to come to ED to see patient, and will see patient immediately. ED course: Pt w SBO based on H&P and rad findings. . 04/18 15:22 Order name: CBC AUTO DIF, MDIF/RMOR IF IND; Complete Time: 15:38 EDWI 04/18 15:37 Order name: BASIC METABOLIC PANEL; Complete Time: 15:38 EDWI 04/18 15:37 Order name: HEPATIC PANEL; Complete Time: 15:38 [facility] 04/18 15:37 Order name: LIPASE; Complete Time: 15:38 [facility] 04/18 20:46 Order name: UA W/ MICRO -CULTURE IF IND [facility] 04/19 06:29 Order name: BASIC METABOLIC PANEL [facility] 04/19 06:29 Order name: MAGNESIUM [facility] 04/19 06:40 Order name: CBC AUTO DIF, MDIF/RMOR IF IND [facility] 04/19 06:59 Order name: THYROID STIMULATING HORMONE [facility] 04/19 17:43 Order name: URINE CULTURE [facility] 04/20 12:00 Order name: NEGATIVE SENSITIVITY PANEL [facility] 04/18 15:19 Order name: ABDOMEN; COMPLET W/CHEST 30150 [facility] 04/18 15:47 Order name: ABDOMEN; COMPLET W/CHEST 01724; Complete Time: 15:51 [facility] 04/18 14:59 Order name: NPO; Complete Time: 15:13 04/18 15:54 Order name: Oxygen; Complete Time: 15:55 Dispensed Medications: 15:00 Drug: NS 0.9% 1000 ml; Route: IV; Rate: bolus; Site: right antecubital; sj 15:56 Follow up: IV Status: Completed infusion; IV Intake: 950ml 15:56 Drug: NS 0.9% 1000 ml; Route: IV; Rate: bolus; Site: right antecubital; sj 16:22 Follow up: IV Status: Infusion continued; IV Intake: 500ml Signatures: Misha Mendosa MD MD jm Janzen, Sarah
--- NOTE | 2017-04-18 16:24 | ER NURSING DOCUMENTATION ---
Nurse's Notes [facility] Name:Aislinn Broderick Age:71 yrs Sex:Female :1945 Arrival Date:04/18/2017 Time:14:30 Bed3 Private MD:Gavin Acosta Diagnosis:Bowel Obstruction;Dehydration Presentation: 04/18 14:41 Acuity: TAMMI 3 tg 15:00 Presenting complaint: Patient states: Emesis x 15-20 since 1330 today, with much bile. sj Hx of colon CA, colectomy, abscesses, and currently has a wound vac to abdominal transverse incision. No abdominal sounds auscultated. Transition of care: Home. 15:00 Method Of Arrival: Private Vehicle sj 15:50 Acuity: TAMMI 2 tg Triage Assessment: 15:08 General: Appears ill, uncomfortable, Behavior is cooperative, pleasant. Pain: Complains sj of pain in epigastric area. Cardiovascular: Capillary refill < 3 seconds. Respiratory: Airway is patent Respiratory effort is even, unlabored, Respiratory pattern is regular. GI: Abdomen is distended, midline supra-umbilical transverse incision with wound vac dressing intact Bowel sounds absent in right upper quadrant, left upper quadrant, right lower quadrant and left lower quadrant Reports intolerance of fluids, intolerance of food, nausea, normal bowel habits, vomiting, last BM this am, normal. Historical: - Allergies: Ceclor; - Home Meds: 1. Colace oral 2. Miralax Oral 3. losartan 50 mg oral tab 4. levothyroxine 88 mcg oral cap 5. Lexapro Oral 6. trazodone 150 mg oral tab 7. Oxybutynin Chloride Oral 8. Flexeril Oral 9. Lasix Oral 10. acetaminophen 650 mg oral tab - PMHx: ARTHRITIS; colon cancer; ileus; abdominal abscesses; HYPOTHYROIDISM; Hypertension; DEPRESSION; leaky bladder; gall stones; - PSHx: colectomy; APPENDECTOMY; left knee replacement; Tonsillectomy; vein stripping; - Tetanus: unknown. - Ebola Screening: : Patient negative for fever greater than or equal to 101.5 degrees Fahrenheit, and additional compatible Ebola Virus Disease symptoms. Patient denies exposure to infectious person. Patient denies travel to an Ebola-affected area in the 21 days before illness onset. No symptoms or risks identified at this time. . - Immunization history: Pneumococcal vaccine is up to date, Flu Vaccine < 1 year. - Social history: Smoking status: Patient states was never smoker of tobacco. Patient/guardian denies using alcohol, marijuana. Screenin:11 Infectious Disease Risk None. Abuse screen: Denies threats or abuse. Denies injuries sj from another. Nutritional screening: On low residue diet. Vital Signs: 14:38 BP 172 / 76 (auto/); sj 14:39 Pulse Ox 90% ; sj 15:10 BP 172 / 76; Pulse 79; Resp 18; Temp 98.0(O); Pulse Ox 93% on R/A; Weight 72.57 kg; sj Height 5 ft. 5 in. (165.10 cm); Pain 2/10; 15:23 BP 177 / 77 (auto/); sj 15:24 BP 177 / 77; Pulse 71; Resp 16; Pulse Ox 91% on R/A; Pain 1/10; sj 15:24 Pulse Ox 89% ; sj 15:30 Pulse Ox 86% on R/A; sj 15:53 BP 162 / 76; Pulse 74; Pulse Ox 96% on 1 lpm NC; sj 16:21 BP 165 / 80; Pulse 81; Pulse Ox 96% on 1 lpm NC; sj 15:10 Body Mass Index 26.63 (72.57 kg, 165.10 cm) ED Course: 14:32 Patient arrived in ED. lm3 14:32 Gavin Acosta DO is Private Physician. lm3 14:41 Triage completed. tg 14:58 Misha Mendosa MD is Attending Physician. jm 15:00 Nany Dawson is Primary Nurse. sj 15:11 Notified ED Physician of patient's arrival and chief complaint. Dr. Mendosa notified. sj 15:12 Inserted peripheral IV: 20 gauge in right antecubital area and blood collected. Missed sj attempts: Bleeding controlled, band aid applied, catheter tip intact. 15:12 Valuables Given to family. Patient has correct armband on for positive identification. sj Placed in gown. Bed in low position. Call light in reach. Side rails up X2. Pulse Ox - RN Monitoring Only NIBP On - RN Monitoring Only. Warm blanket given. 15:19 ABDOMEN; COMPLET W/CHEST 33801 In Process Unspecified. EDMS 15:52 Patient moved to radiology. cristina 15:52 Patient moved back from radiology. cristina 15:52 ABDOMEN; COMPLET W/CHEST [id number] Sent. cristina 15:54 Oxygen Oxygen administration via nasal cannula @ 1L/min. 15:57 Quinn Patterson MD is Admitting Physician. jeff Administered Medications: 15:00 Drug: NS 0.9% 1000 ml; Route: IV; Rate: bolus; Site: right antecubital; sj 15:56 Follow up: IV Status: Completed infusion; IV Intake: 950ml 15:56 Drug: NS 0.9% 1000 ml; Route: IV; Rate: bolus; Site: right antecubital; sj 16:22 Follow up: IV Status: Infusion continued; IV Intake: 500ml Intake: 15:56 IV: 950ml; Total: 950ml. 16:22 IV: 500ml; Total: 1450ml. Outcome: 15:57 Decision to Admit by Provider. 16:23 Patient left the ED. Signatures: Dispatcher [employer] Neeraj Escalante RN RN tg Meyer, John, MD MD jm Abbott, Nany Alarcon Lisa lm3
[2017-04-18] MEDS: METOCLOPRAMIDE HCL 10 MG/2 ML VIAL ONE ×2 (16:50→18:41)
[2017-04-18] MEDS: METOCLOPRAMIDE HCL 10 MG/2 ML VIAL IV PRN ×2 (16:50→18:41)
[2017-04-18] MEDS ORDERED: HOME MEDICATION LIST NEEDED 1 EA EACH MISC ONE (17:35)
[2017-04-18] MEDS ORDERED: ONDANSETRON HCL 4 MG/2 ML VIAL IV PRN (17:45)
[2017-04-18] MEDS ORDERED: MORPHINE SULFATE 2 MG/ML SYR IV PRN (17:46)
[2017-04-18] MEDS: POTASSIUM CHLORIDE/NS 1,000 ML IV SCH (18:43)
[2017-04-18 20:42] LABS: URINE COLOR YELLOW; URINE MUCUS NONE SEEN (Up to 25%); URINE RBC NONE SEEN (0-5/hpf); URINE SQUAMOUS EPITHELIAL CELL NONE SEEN (<= 15/hpf)
[2017-04-18 20:43] LABS: URINE APPEARANCE TURBID
[2017-04-18 20:44] LABS: URINE BILIRUBIN NEGATIVE (NEGATIVE); URINE BLOOD 50 Ery/uL (2+) (NEGATIVE); URINE GLUCOSE NORMAL (NEGATIVE); URINE KETONE NEGATIVE (NEGATIVE); URINE LEUKOCYTE ESTERASE 25 WBC/uL (1+) (NEGATIVE); URINE NITRITE NEGATIVE (NEGATIVE); URINE PH 6.5 (5-7); URINE PROTEIN NEGATIVE (NEG - TRACE); URINE SPECIFIC GRAVITY 1.015 (0.001-1.035); URINE UROBILINOGEN 0.2mg/dL (Normal) (NEG-1mg/dL)
[2017-04-18 20:45] LABS: URINE WBC 0-4/hpf (0-4/hpf)
[2017-04-18] MEDS ORDERED: WATER IRRIG 1,000 ML BOTTLE ONE (22:08)
[2017-04-19] MEDS: POTASSIUM CHLORIDE/NS 1,000 ML IV SCH ×2 (01:14→09:23)
[2017-04-19 06:21] LABS: BASOPHILS 0.5 % (0.0-2.0); EOSINOPHILS# 0.1 X 10^3uL (0.0-0.4); HEMATOCRIT 27.7 % (36.0-48.0); HEMOGLOBIN 9.3 g/dL (12.0-16.0); LYMPHOCYTES 43.8 % (20.0-40.0); LYMPHOCYTES# 2.7 X 10^3uL (0.8-3.8); MEAN CELL VOLUME 87.6 fL (80.0-100.0); MEAN CORPUS. HGB CONCENTRATION 33.5 g/dL (32.0-36.0); MEAN CORPUSCULAR HEMOGLOBIN 29.3 pg (29.0-35.0); MEAN PLATELET VOLUME 7.3 fL (7.4-10.4); MONOCYTES 6.5 % (2.0-10.0); MONOCYTES# 0.4 X 10^3uL (0.2-1.0); NEUTROPHILS 48.2 % (54.0-75.0); PLATELET COUNT 324 X 10^3uL (130-440); RED BLOOD COUNT 3.17 X 10^6uL (4.20-6.10); RED CELL DISTRIBUTION WIDTH 15.2 % (11.5-14.5); WHITE BLOOD COUNT 6.2 X 10^3uL (3.9-10.7)
[2017-04-19 06:27] LABS: BLOOD UREA NITROGEN 8 mg/dL (7-17); CALCIUM 7.9 mg/dL (8.4-10.2); CHLORIDE 112 mmol/L (98-107); CREATININE 0.6 mg/dL (0.5-1.0); EST GLOMERULAR FILTRATION RATE > 60 mL/min; GLUCOSE 85 mg/dL (70-100); MAGNESIUM 1.6 mg/dL (1.6-2.3); POTASSIUM 3.9 mmol/L (3.5-5.1); SODIUM 142 mmol/L (137-145)
[2017-04-19 06:40] VITALS: BP 153/72; PULSE 66; RESP 14; TEMP 98.8; O2SAT 94
[2017-04-19] MEDS ORDERED: POLYETHYLENE GLYCOL 3350 17 GM POWD.PACK PO SCH (09:00)
--- NOTE | 2017-04-19 10:44 | DC SUMMARY: Gen Surgery Note ---
Discharge Summary: Surg/OB Provider: Date of Admission: 04/18/17 Admitting Provider: ONDINA ELIZABETH MD Attending Provider: ONDINA ELIZABETH MD Discharging Provider: ONDINA ELIZABETH MD Primary Care Provider: Discharge Date: 04/19/17 - Diagnosis (1) Small bowel obstruction Status: Resolved (2) Wound infection after surgery Status: Chronic Hospital Course: Ms. ROBBINS is a 71 year old female She again comes in with a partial small bowel obstruction which quickly cleared. Today she has a benign abdomen with the left sided distension nearly resolved. She seemed to respond to IV Reglan. Will discharge on reglan. She will stay on clear liquids and go to a low residue diet on Saturday. I have removed her wound vac and treated the wound with silver nitrate. Will hold wound vac for the . Recheck her in wound clinic on saturday. Discharge - Patient/Caregiver Discharge Instructions Activity Level: As tolerated. Diet: clear liquids. Start low residue on saturday. Overall discharge status: patient is progressing back to baseline Home Medications: Polyethylene Glycol 3350 [Miralax*] 17 gm PO DAILY #1 powd.pack Gen Surgery: Discharge Exam - Latest Vital Signs and I&O Latest Vital Signs/I&O: Vital Signs Temp 37.1 C 04/19/17 06:37 Pulse 66 04/19/17 06:37 Resp 14 04/19/17 09:00 BP 153/72 04/19/17 06:37 Pulse Ox 94 04/19/17 09:00 Intake & Output 04/18/17 04/19/17 04/19/17 17:59 05:59 17:59 Intake Total 100 1800 Output Total 200 Balance -100 1800 Weight 72.575 kg Intake: IV 1800 Right Forearm 1800 Oral 100 Output: Urine 200 Other: Urine Appearance Clear Clear Clear Urine Color Yellow Yellow Yellow Stool Size Large Large Stool Characteristics Soft Liquid Liquid Formed Brown Brown Voiding Method Toilet Toilet Toilet # Voids 2 # Bowel Movements 2 - Exam Respiratory exam: clear to auscultation Abdomen exam: bowel sounds (active.), soft, distended (mild left sided distension which is markedly improved from yesterday.), wound (the left sided wound is granulated in well. It was treated with silver nitrate. The right sided wound has a tunnel connecting the two wounds. It was also treated with silver nitrate.) Discharge Summary Data - Medication History Medication History: Home Medications Escitalopram Oxalate [Lexapro*] 20 mg PO DAILY 04/09/17 Furosemide [Lasix*] 40 mg PO DAILY 04/09/17 Levothyroxine [Synthroid*] 88 mcg PO DAILY 04/09/17 Losartan Potassium [Cozaar*] 100 mg PO DAILY 04/09/17 Oxybutynin Chloride [Ditropan*] 5 mg PO BID 04/09/17 Pantoprazole [Pantoprazole Sodium*] 40 mg PO DAILY 04/09/17 Potassium Chloride [Klor-Con M10] 1 tab PO DAILY 04/09/17 traZODone HCL [Trazodone HCl*] 150 mg PO HS 04/09/17 Acetaminophen [Tylenol*] 650 mg PO Q6H PRN #0 tablet 04/11/17 Inpatient Medications 04/18/17 17:41 Metoclopramide HCl [Reglan] 10 mg IV Q6H PRN 04/18/17 17:45 Ondansetron HCl [Zofran] 4 mg IV Q6H PRN 04/18/17 17:46 Morphine Sulfate 1 mg IV Q1H PRN 04/18/17 18:00 Potassium Chloride/Ns [KCl 20 Meq in Ns 1L] 1,000 ml IV CONT 04/19/17 09:00 Polyethylene Glycol 3350 [miraLAX] 17 gm PO DAILY Procedures and tests throughout hospitalization: Completed Lab Orders 04/18/17 20:15 UA W/ MICRO -CULTURE IF IND [URINE] Routine 04/19/17 06:05 BASIC METABOLIC PANEL [CHEM] AMDRAW CBC AUTO DIF, MDIF/RMOR IF IND [HEM] AMDRAW MAGNESIUM [CHEM] AMDRAW TSH [THYROID STIMULATING HORMONE] [CHEM] AMDRAW Pending Orders 04/18/17 17:35 Admit: Observation Routine Activity: Ambulate with Assist TID Assess pulse oximetry ROOM AIR (DAILY) Hard Candy . Ice Chips . Medications with water . Resuscitation Status Routine Titrate Oxygen TITRATE TO >90% Vital Signs ROUTINE VITALS (Q4H) Massotherapist Consult [CM] Routine 04/18/17 17:41 Metoclopramide HCl [Reglan] 10 mg IV Q6H PRN 04/18/17 17:45 Ondansetron HCl [Zofran] 4 mg IV Q6H PRN 04/18/17 17:46 Morphine Sulfate 1 mg IV Q1H PRN 04/18/17 17:47 Miscellaneous Care Order . SCD's [Sequential Compression Device] WHILE IN BED 04/18/17 18:00 Potassium Chloride/Ns [KCl 20 Meq in Ns 1L] 1,000 ml IV CONT 04/18/17 20:15 URINE CULTURE [RM] Routine 04/19/17 09:00 Polyethylene Glycol 3350 [miraLAX] 17 gm PO DAILY 04/19/17 Breakfast Nothing By Mouth [DIET] Labs on day of discharge: Labs from last 24 hours 04/19/17 04/18/17 06:05 20:15 WBC 6.2 RBC 3.17 L Hgb 9.3 L Hct 27.7 L MCV 87.6 MCH 29.3 MCHC 33.5 RDW 15.2 H Plt Count 324 MPV 7.3 L Neutrophils % 48.2 L Lymphocytes % 43.8 H Eosinophils % 1.0 Basophils % 0.5 Neutrophils # 3.0 Lymphocytes # 2.7 Monocytes 6.5 Monocytes # 0.4 Eosinophils # 0.1 Basophils # 0.0 Sodium 142 Potassium 3.9 Chloride 112 H Carbon Dioxide 25 BUN 8 Creatinine 0.6 GFR Calculation > 60 Glucose 85 Calcium 7.9 L Magnesium 1.6 TSH 1.60 D Urine Color Yellow Urine Appearance Turbid A Urine pH 6.5 Ur Specific [place] 1.015 Urine Protein Negative Urine Ketones Negative Urine Blood 50 allison/ul (2+) A Urine Nitrate Negative Urine Bilirubin Negative Urine Urobilinogen 0.2mg/dl (normal) Ur Leukocyte Esterase 25 wbc/ul (1+) A Urine RBC None seen Urine WBC 0-4/hpf Ur Squamous Epith Cells None seen Urine Bacteria 10-20 organisms/hpf A Urine Mucus None seen Urine Glucose Normal
[2017-04-19] MEDS: METOCLOPRAMIDE HCL 10 MG/2 ML VIAL IV PRN (10:47)
--- NOTE | 2017-04-25 15:23 | PREOPERATIVE H&P ---
History of Present Illness (Quinn Patterson M.D.; 04/18/2017 6:00 PM) The patient is a 71 year old female who presents with abdominal pain. The onset of the pain has been sudden and has been occurring in a persistent pattern for 12 hours . The course has been increasing . The pain is described as a moderate pressure sensation and fullness . The pain is described as being located in the left upper quadrant and epigastrium and does not radiate . There are no aggravating factors . The pain is relieved by vomiting . The symptoms have been associated with abdominal distention, bloating, constipation , nausea and vomiting, while the symptoms have not been associated with bloody stools, fever or heartburn . There is a medical history of colon cancer (right colectomy 03/01/2017) . Previous evaluations have included CT scan and other ( small bowel series) . She was hospitalized 8 days ago by myself. She had similar symptoms at that time. She eventually had a small bowel series which showed no evidence of obstruction. She was able be discharged and had no problems until today. Problem List/Past Medical (Quinn Patterson M.D.; 04/18/2017 6:02 PM) GI bleed (K92.2) Status post left knee replacement (Z96.652) Post-polypectomy bleeding History of colon polyps (Z86.010) Essential hypertension with goal blood pressure less than 130/80 (I10) Hypothyroidism, adult (E03.9) Abdominal swelling, generalized (789.37) Osteoarthritis Depression (311.) (F32.9) Sleep apnea (780.57) (G47.30) Allergies (Quinn Patterson M.D.; 04/18/2017 6:02 PM) Cephalosporins (Rocephin, Keflex, Cephalexin, Ceclor, Ceftin...) Ceclor caused hives. Family History (Quinn Patterson M.D.; 04/18/2017 6:02 PM) No Significant Family Ocular History Father Colon Cancer. Mother Breast cancer, Ovarian Cancer. age 82, had breast first and then later ovarian Social History (Quinn Patterson M.D.; 04/18/2017 6:02 PM) Tobacco use Former smoker. Alcohol Use None. Vehicle Driving Yes. Non Drinker/No Alcohol Use Marital status . Number of Children Biological, 2. Medication History (Quinn Patterson M.D.; 04/18/2017 6:02 PM) Aspirin EC Low Strength (81MG Tablet DR, one tablet Oral daily) Active. Biotin (Oral daily) Specific dose unknown - Active. Calcium Carbonate (Oral daily) Specific dose unknown - Active. Escitalopram Oxalate (Oral) Specific dose unknown - Active. Furosemide (20MG Tablet, 2 Oral daily, Taken starting 2004) Active. Levothroid (88MCG Tablet, Oral daily) Active. Losartan Potassium (100MG Tablet, 1 Oral daily, Taken starting 2005) Active. Magnesium Aspartate (Oral daily) Specific dose unknown - Active. Naproxen (Oral two times daily) Specific dose unknown - Active. Omeprazole (Oral) Specific dose unknown - Active. Oxybutynin Chloride (5MG Tablet, 1 Oral two times daily, Taken starting 1999) Active. Potassium Chloride CR (10MEQ Capsule ER, 1 Oral daily, Taken starting 2005) Active. TraZODone HCl (150MG Tablet, 1 tab Oral daily) Active. Tylenol Extra Strength (Oral as needed) Specific dose unknown - Active. Vitamin C (1000MG Tablet, 1-2 per day Oral as needed) Active. Vitamin E (Oral as needed) Specific dose unknown - Active. / History (Quinn Patterson M.D.; 04/18/2017 6:02 PM) Delivery Mode vaginal Deliveries (Parity) 2002 Pregnancies () 2 Past Surgical History (Quinn Patterson M.D.; 04/18/2017 6:02 PM) Thyroidectomy; Total Varicose Vein Ligation and Stripping Tubal Ligation Appendectomy Breast Biopsy - Both Knee Replacement, Total Left. Colectomy Date: 02/01/2017. This was complicated by a post op ileus requiring NGT placement. She later developed a wound infection requiring a wound vac. Review of Systems (Quinn Patterson M.D.; 04/18/2017 6:03 PM) General Present- Malaise. Not Present- Chills, Feeling well and Fever. Respiratory Not Present- Lung Problems and Shortness of Breath. Cardiovascular Present- Elevated Blood Pressure. Gastrointestinal Present- Bloating, Constipation, GI Problems, Heartburn and Indigestion. Not Present- Diarrhea. Psychiatric Present- Depression. Endocrine Present- Thyroid Problems. 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 Her warfarin has subsequently been stopped and she is off anticoagulation therapy.). Vitals (Quinn Patterson M.D.; 04/18/2017 6:04 PM) 04/18/2017 6:03 PM Pain Level: 2/10 Temp.: 98F Pulse: 70 (Regular) Resp.: 18 (Unlabored) Peak Flow: 2L/ min P.OX: 98% (Room air) BP: 177/77 (Sitting, Left Arm, Standard) Physical Exam (Quinn Patterson M.D.; 04/18/2017 6:15 PM) General Mental Status-Alert. General Appearance-Not Anxious. Orientation-Oriented X3. Integumentary Assessment of surgical incision: Location - Abdomen - midline. Wound appearance: - Bilateral - consistent with normal anticipated wound healing. Surgical drain present - Bilateral - Wound Vac (near the umbilicus). Head and Neck Neck Normal Exam - No Lymphadenopathy, No Thyromegaly, no Carotid bruits. Chest and Lung Exam Chest and lung exam reveals -Clear. Cardiovascular Cardiovascular examination reveals -RRR, No murmurs present. Abdomen Inspection Incisional scars - Laparotomy scar. Contour - Generalized moderate distention. Palpation/Percussion Palpation and Percussion of the abdomen reveal - Non Tender. Note: there is fullness to palpation in the left upper and left lower quadrant. Auscultation Bowel sounds decreased - Note: bowel sounds were only heard in the left upper quadrant and were very distant. Assessment & Plan (Quinn Patterson M.D.; 04/18/2017 6:18 PM) Small bowel obstruction, partial (K56.69) Note:This does not seem has severe as the last admission. Will plan to use IV reglan and switch to po reglan. Will defer NGT for now. Will hold off on small bowel study for now. No CT is indicated at this time and she does not have an acute surgical abdomen. Will re-evaluae in the morning. Signed by Quinn Patterson M.D. (04/18/2017 6:19 PM) KATERINE
== END 2017-04-19 10:54 | disposition home health service (06) ==
LOC: ER 14:30 → IN 16:22
PROVIDERS: ADMIT Surgery; ATTEND Surgery
DX: K56.69 Other intestinal obstruction (principal); E86.0 Dehydration; I10 Essential (primary) hypertension; F32.89 Other specified depressive episodes; G47.30 Sleep apnea, unspecified; E03.9 Hypothyroidism, unspecified; Z86.010 Personal history of colon polyps; Z79.899 Other long term (current) drug therapy
CPT/HCPCS: 36415; 74022; 80048; 80076; 81001; 83690; 83735; 84443; 85025; 87077; 87086; 87186; 96360; 96374; 96375; 96376; 99219; 99284; 99285; A4217; G0378; J2405; J2765; J3480

== ENCOUNTER 2017-04-29 23:05 | Observation (INO) | payer MEDICARE, BC ==
[2017-04-29 23:41] LABS: BASOPHILS 0.4 % (0.0-2.0); EOSINOPHILS 0.2 % (0.0-6.0); HEMATOCRIT 38.5 % (36.0-48.0); HEMOGLOBIN 12.9 g/dL (12.0-16.0); LYMPHOCYTES 36.8 % (20.0-40.0); LYMPHOCYTES# 3.6 X 10^3uL (0.8-3.8); MEAN CELL VOLUME 86.6 fL (80.0-100.0); MEAN CORPUS. HGB CONCENTRATION 33.5 g/dL (32.0-36.0); MEAN PLATELET VOLUME 7.6 fL (7.4-10.4); MONOCYTES 4.5 % (2.0-10.0); MONOCYTES# 0.4 X 10^3uL (0.2-1.0); NEUTROPHILS 58.1 % (54.0-75.0); NEUTROPHILS# 5.9 X 10^3uL (2.6-6.7); PLATELET COUNT 504 X 10^3uL (130-440); RED BLOOD COUNT 4.45 X 10^6uL (4.20-6.10); RED CELL DISTRIBUTION WIDTH 14.6 % (11.5-14.5); WHITE BLOOD COUNT 9.9 X 10^3uL (3.9-10.7)
[2017-04-29 23:49] LABS: ALKALINE PHOSPHATASE 99 U/L (38-126); ALT 34 U/L (9-52); AST 41 U/L (14-36); BILIRUBIN, DIRECT 0.1 mg/dL (0.0-0.4); BILIRUBIN, TOTAL 0.7 mg/dL (0.2-1.3); BLOOD UREA NITROGEN 10 mg/dL (7-17); CALCIUM 9.6 mg/dL (8.4-10.2); CHLORIDE 104 mmol/L (98-107); CREATININE 0.7 mg/dL (0.5-1.0); EST GLOMERULAR FILTRATION RATE > 60 mL/min; GLUCOSE 134 mg/dL (70-100); LIPASE 47 U/L (23-300); POTASSIUM 3.6 mmol/L (3.5-5.1); SODIUM 139 mmol/L (137-145); TOTAL PROTEIN 7.3 g/dL (6.3-8.2)
[2017-04-30] MEDS ORDERED: HOME MEDICATION LIST NEEDED 1 EA EACH MISC ONE (00:18)
[2017-04-30] MEDS ORDERED: METOCLOPRAMIDE HCL 10 MG/2 ML VIAL ONE (00:30)
--- NOTE | 2017-04-30 00:51 | ER NURSING DOCUMENTATION ---
Nurse's Notes [facility] Name:Aislinn Broderick Age:71 yrs Sex:Female :1945 Arrival Date:04/29/2017 Time:23:05 Bed4 Private MD:Gavin Acosta Diagnosis:Bowel Obstruction Presentation: 04/29 23:16 Presenting complaint: Patient states: Abdominal pain for the last 2-3 days. Started sc1 vomiting approx. 2000 tonight and states she feels like she is having another bowel obstruction. Transition of care: Home. 23:16 Method Of Arrival: Private Vehicle sc1 23:16 Acuity: TAMMI 3 sc1 Triage Assessment: 23:17 General: Appears uncomfortable, well developed, well nourished, well groomed, Behavior sc1 is cooperative, pleasant. Pain: Complains of pain in abdomen. GI: Reports bloating, cramping, nausea, vomiting. Historical: - Allergies: Ceclor; - Home Meds: 1. Colace oral 2. Miralax Oral 3. losartan 50 mg oral tab 4. levothyroxine 88 mcg oral cap 5. Lexapro Oral 6. trazodone 150 mg oral tab 7. Oxybutynin Chloride Oral 8. Flexeril Oral 9. Lasix Oral 10. acetaminophen 650 mg oral tab - PMHx: ARTHRITIS; colon cancer; ileus; abdominal abscesses; HYPOTHYROIDISM; HYPERTENSION; DEPRESSION; leaky bladder; gall stones; Bowel Obstruction (April 18, 2017); Dehydration (April 18, 2017); - PSHx: colectomy; APPENDECTOMY; left knee replacement; TONSILLECTOMY; vein stripping; - Tetanus: unknown. - Ebola Screening: : Patient negative for fever greater than or equal to 101.5 degrees Fahrenheit, and additional compatible Ebola Virus Disease symptoms. Patient denies exposure to infectious person. Patient denies travel to an Ebola-affected area in the 21 days before illness onset. No symptoms or risks identified at this time. . - Immunization history: Pneumococcal vaccine is up to date, Flu Vaccine < 1 year. - Social history: Smoking status: Patient states was never smoker of tobacco. Patient/guardian denies using alcohol, street drugs, IV drugs, marijuana. Screenin:23 Infectious Disease Risk None. Abuse screen: Denies threats or abuse. Nutritional sc1 screening: No deficits noted. Vital Signs: 23:19 BP 185 / 84; Pulse 73; Resp 18; Temp 98.5; Pulse Ox 92% on R/A; sc1 04/30 00:47 BP 172 / 77; Pulse 70; Resp 16; Pulse Ox 92% on R/A; mo1 ED Course: 04/29 23:06 Patient arrived in ED. em2 23:06 Gavin Acosta DO is Private Physician. em2 23:08 Junie Borja RN is Primary Nurse. mo1 23:17 Triage completed. mo1 23:23 Notified ED Physician of patient's arrival and chief complaint. Dr. Nice notified. sc1 Allergy Band Placed Arm band placed on Bed in low position Call Light in Reach Gowned HOB Elevated Side rails up x2. Labs ordered per protocol. Drawn by ED staff. X-ray ordered. 23:28 Patient moved to radiology. ms 23:35 Quinn Nice MD is Attending Physician. sc 23:46 Patient moved back from radiology. ms 23:48 ABDOMEN; COMPLET W/CHEST [id number] In Process Unspecified. EDMS 04/30 00:17 Joseph Graff MD is Admitting Physician. mo 00:50 Valuables sent with patient on admission to [facility] [place]. sc1 Administered Medications: 04/29 23:33 Drug: NS 0.9% 1000 ml; Route: IV; Rate: bolus; Site: right antecubital; Delivery: sc1 [place] Tubing; 04/30 00:48 Follow up: IV Status: Completed infusion; IV Intake: 1000ml mo1 00:22 Drug: Reglan 10 mg; Route: IVP; Site: right forearm; mo1 00:48 Follow up: Response: No adverse reaction; Nausea is decreased mo1 Intake: 00:48 IV: 1000ml; Total: 1000ml. mo1 Outcome: 00:18 Decision to Admit by Provider. sc 00:48 Admitted to Med/surg accompanied by nurse, via stretcher, on monitor. sc1 00:48 Condition: stable 00:48 Instructed on need to admit 00:50 Patient left the ED. mo1 Signatures: Dispatcher [employer] EDMS Junie Borja RN RN mo1 Quinn Nice MD MD mo Aislinn Duran ri [id number] em2
--- NOTE | 2017-04-30 00:51 | ER PHYSICIAN DOCUMENTATION ---
Physician Documentation [facility] Name:Aislinn Broderick Age:71 yrs Sex:Female :1945 Arrival Date:04/29/2017 Time:23:05 Bed4 Private MD:Gavin Acosta ED, Scott Disposition: 04/30/17 00:18 Admit ordered for Joseph Graff. Preliminary diagnosis is Bowel Obstruction. - Bed requested for Medical/Surgical. - Condition is Fair. - Problem is an acute exacerbation. - Symptoms are unchanged. 23 HR OBS Yes HPI: 04/29 23:41 This 71 yrs old Female presents to ER via Private Vehicle with complaints of sc Nausea/Vomiting. 23:41 The patient presents to the emergency department with nausea, with vomiting, with sc associated abdominal pain, of the abdomen diffusely, described as dull, and does not radiate. Onset: The symptom(s)/episode began/occurred 2 day(s) ago. Possible causes: recent sbo or ileus. Associated signs and symptoms: Pertinent positives: nausea, vomiting. The patient has experienced similar episodes in the past, a few times. Historical: - Allergies: Ceclor; - Home Meds: 1. Colace oral 2. Miralax Oral 3. losartan 50 mg oral tab 4. levothyroxine 88 mcg oral cap 5. Lexapro Oral 6. trazodone 150 mg oral tab 7. Oxybutynin Chloride Oral 8. Flexeril Oral 9. Lasix Oral 10. acetaminophen 650 mg oral tab - PMHx: ARTHRITIS; colon cancer; ileus; abdominal abscesses; HYPOTHYROIDISM; HYPERTENSION; DEPRESSION; leaky bladder; gall stones; Bowel Obstruction (April 18, 2017); Dehydration (April 18, 2017); - PSHx: colectomy; APPENDECTOMY; left knee replacement; TONSILLECTOMY; vein stripping; - Tetanus: unknown. - Ebola Screening: : Patient negative for fever greater than or equal to 101.5 degrees Fahrenheit, and additional compatible Ebola Virus Disease symptoms. Patient denies exposure to infectious person. Patient denies travel to an Ebola-affected area in the 21 days before illness onset. No symptoms or risks identified at this time. . - Immunization history: Pneumococcal vaccine is up to date, Flu Vaccine < 1 year. - Social history: Smoking status: Patient states was never smoker of tobacco. Patient/guardian denies using alcohol, street drugs, IV drugs, marijuana. ROS: 23:43 Constitutional: Negative for fever, chills, and weight loss. sc Eyes: Negative for injury, pain, redness, and discharge. ENT: Negative for injury, pain, and discharge. Neck: Negative for injury, pain, and swelling. Cardiovascular: Negative for chest pain, palpitations, and edema. Respiratory: Negative for shortness of breath, cough, wheezing, and pleuritic chest pain. MS/Extremity: Negative for injury and deformity. Skin: Negative for injury, rash, and discoloration. 23:43 Neuro: Negative for headache, weakness, numbness, tingling, and seizure. sc 23:43 Abdomen/GI: Positive for abdominal pain, nausea, vomiting, abdominal distension. Exam: Head/Face: Normocephalic, atraumatic. Eyes: Pupils equal round and reactive to light, extra-ocular motions intact. Lids and lashes normal. Conjunctiva and sclera are non-icteric and not injected. Cornea within normal limits. Periorbital areas with no swelling, redness, or edema. ENT: Nares patent. No nasal discharge, no septal abnormalities noted. Tympanic membranes are normal and external auditory canals are clear. Oropharynx with no redness, swelling, or masses, exudates, or evidence of obstruction, uvula midline. Mucous membranes moist. Neck: Trachea midline, no thyromegaly or masses palpated, and no cervical lymphadenopathy. Supple, full range of motion without nuchal rigidity, or vertebral point tenderness. No meningismus. Chest/axilla: Normal chest wall appearance and motion. Nontender with no deformity. No lesions are appreciated. Respiratory: Lungs have equal breath sounds bilaterally, clear to auscultation and percussion. No rales, rhonchi or wheezes noted. No increased work of breathing, no retractions or nasal flaring. Back: No spinal tenderness. No costovertebral tenderness. Full range of motion. 23:43 Neuro: Awake and alert, GCS 15, oriented to person, place, time, and situation. sc Cranial nerves II-XII grossly intact. Motor strength 5/5 in all extremities. Sensory grossly intact. Cerebellar exam normal. Normal gait. 23:43 Constitutional: The patient appears alert, awake, well hydrated, well groomed. 23:43 Cardiovascular: Rate: normal, Rhythm: regular. 23:43 Abdomen/GI: Bowel sounds: high pitched, Palpation: mild abdominal tenderness, in all quadrants. 23:43 Skin: Appearance: Color: normal in color, pink, Temperature: normal temperature, warm, Moisture: normal moisture, dry. Vital Signs: 23:19 BP 185 / 84; Pulse 73; Resp 18; Temp 98.5; Pulse Ox 92% on R/A; ks1 04/30 00:47 BP 172 / 77; Pulse 70; Resp 16; Pulse Ox 92% on R/A; [facility] MDM: 04/29 23:35 Patient medically screened. ks 23:44 Differential diagnosis: Nonspecific abd pain, gastritis, viral gastroenteritis, sc gastroenteritis, sbo vs ileus, secondary to right partial colectomy 03-01-17 for colon ca. Data reviewed: vital signs, nurses notes, old medical records, lab test result(s), radiologic studies, plain films, and as a result, I will continue to observe the patient. 04/30 00:16 Physician consultation: Joseph Graff MD was called at 00:16, was contacted at 00:16, ks regarding admission, to the floor. 04/29 23:44 Order name: CBC AUTO DIF, MDIF/RMOR IF IND; Complete Time: 00:05 EDLA 04/30 00:04 Interpretation: Normal. ks 04/29 23:50 Order name: BASIC METABOLIC PANEL; Complete Time: 00:05 EDLA 04/30 00:05 Interpretation: Normal. ks 04/29 23:51 Order name: HEPATIC PANEL; Complete Time: 00:05 [facility] 04/30 00:05 Interpretation: Normal. ks 04/29 23:51 Order name: LIPASE; Complete Time: 00:05 [facility] 04/30 00:05 Interpretation: Normal. ks 04/29 23:59 Order name: PROTIME/INR; Complete Time: 00:05 [facility] 04/30 00:05 Interpretation: Normal. ks 05/01 07:54 Order name: URINE CULTURE EDLA 04/29 23:48 Order name: ABDOMEN; COMPLET W/CHEST [id number]; Complete Time: 00:05 [facility] 04/30 00:05 Interpretation: Abnormal. ks 04/30 08:35 Order name: ABDOMEN; COMPLET W/CHEST [id number] EDMS Dispensed Medications: 04/29 23:33 Drug: NS 0.9% 1000 ml; Route: IV; Rate: bolus; Site: right antecubital; Delivery: sc1 [place] Tubing; 04/30 00:48 Follow up: IV Status: Completed infusion; IV Intake: 1000ml sc1 00:22 Drug: Reglan 10 mg; Route: IVP; Site: right forearm; sc1 00:48 Follow up: Response: No adverse reaction; Nausea is decreased sc1 Signatures: Junie Borja RN RN ks1 Quinn Nice MD MD ks
[2017-04-30] MEDS: NORMAL SALINE 1,000 ML IV SCH ×2 (01:00→08:21)
[2017-04-30] MEDS: FAMOTIDINE IN SALINE, ISO-OSM 20 MG/50 ML PIGGYBACK IV SCH ×3 (02:49→21:30)
--- NOTE | 2017-04-30 08:14 | RADIOLOGY REPORT ---
A single view of the chest is compared with prior film dated 04/18/2017. The heart and vessels are stable unremarkable. The lung helms are clear. No infiltrate, fluid or pneumothorax is seen. Views of the abdomen again demonstrate multiple air filled, dilated loops of small bowel, consistent with obstruction. There is a paucity of colon gas. Calcified gallstone is again noted in the right upper quadrant. No free air is identified. IMPRESSION: 1. Gas pattern consistent with a degree of small bowel obstruction. 2. Calcified gallstone. MTDD
--- NOTE | 2017-04-30 10:47 | HISTORY & PHYSICAL ---
DATE OF ADMISSION: 04/30/17 ATTENDING PHYSICIAN: Quinn Patterson MD CHIEF COMPLAINT: Nausea, vomiting, bloating and abdominal pain. HISTORY OF PRESENT ILLNESS: This is a 71-year-old female I am very familiar with from previous admissions for a similar problem. Around the first part of January she underwent a right colectomy for a colon cancer. She had a postoperative ileus which cleared, and then she was discharged home. In the first part of March she had a wound infection which was drained, and wound VAC therapy was started. Since that time I have admitted her 3 times for symptoms of a small bowel obstruction. These have quickly cleared by the time I have seen her in the hospital. She had 1 small bowel follow through study which showed contrast into the colon at 8 hours. She was last admitted about 8 days ago. She notes that she had some diarrhea last week. She then had a normal stool yesterday. Following the normal stool she began to have abdominal bloating, cramping and developed nausea and vomiting. She stool Reglan, but this was not helpful. She was eventually seen in the Emergency Room early this morning. She was admitted and given IV Reglan. Currently she feels much better and her pain has resolved. PAST MEDICAL HISTORY 1. History of GI bleed. 2. Status post left knee replacement. 3. History of post polypectomy bleed from a colon polyp in the cecum. This was a malignant polyp and subsequently she underwent right colectomy. 4. Essential hypertension. 5. Hypothyroidism. 6. Osteoarthritis. 7. Depression. 8. Sleep apnea. ALLERGIES: Cephalosporins, specifically she had hives with Ceclor. FAMILY HISTORY: Colon cancer in her father. Mother had breast cancer and ovarian cancer and at age 82. SOCIAL HISTORY: She quit smoking. She is a non-alcohol user. She is . She has 2 biological children. 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 MEDICATIONS Aspirin 81 mg p.o. daily. Biotin 1 tab daily. Calcium carbonate 1 tab daily. Levothyroxine 88 mcg daily. Losartan 100 mg daily. Naprosyn 1 tab b.i.d. Omeprazole PRN. Oxybutynin 5 mg 1 time b.i.d. Potassium 10 MEQ daily. Trazadone 150 mg daily. Tylenol PRN. Lasix 40 mg daily. PAST SURGICAL HISTORY 1. Total thyroidectomy in the past. 2. Varicose vein ligations. 3. Tubal ligation. 4. Appendectomy. 5. Bilateral breast biopsies. 6. Left knee replacement. 7. Right hemicolectomy. REVIEW OF SYSTEMS GENERAL: She says her fatigue is slightly better but still present. She denies fevers or chills at this time. RESPIRATORY: She denies shortness of breath. CARDIAC: She denies chest pain. GI: She does have bloating. She is not constipated. She had diarrhea last week. She had some indigestion which cleared with IV Pepcid. She has had the diarrhea but this has resolved. PSYCHIATRIC: She has had problems with depression. ENDOCRINE: She has had a total thyroidectomy in the past. HEMATOLOGIC: She has had blood clots on 2 separate occasions, once with child and recently with a right PICC line. PHYSICAL EXAMINATION VITAL SIGNS: Temperature 36.8, blood pressure 168/81, respiratory rate 20. Saturation 95% on 2 liters nasal cannula. This time she has no abdominal pain. GENERAL: She appears at this time in no acute distress. She is pleasant and appears to be feeling much better. INTEGUMENT: Her surgical wound is about the same size in the abdomen. There is a wound on the left side and then there is a tunnel that tracks over to the right side. I had stopped her wound VAC about a week ago but the wounds have been about the same and do not appear improved. There are not worsening either. NECK: No lymphadenopathy. The thyroid is not present. LUNGS: Clear bilaterally. HEART: Regular rate and rhythm and no murmur was noted. ABDOMEN: As mentioned the wounds are noted. There is a midline incision that goes just below the umbilicus. There is also a right lateral abdominal wound. Bowel sounds are present and active at this time. The abdomen is soft. There is no localized tenderness. No rebound. No guarding appreciated. RECTAL: Deferred at this time. EXTREMITIES: She has some venous stasis changes in her lower extremities. There is no edema noted. LABORATORY DATA: Fairly normal. IMAGING: Abdominal films do show a pattern which appears consistent with a small bowel obstruction. There is also air into the colon so ileus is a possibility as well. IMPRESSION/PLAN: Recurrent small bowel obstructions. I feel that she probably has an adhesions, and she continues to have problems of this nature. It has now been about 3 months following her recent surgery. I feel that she will probably need to have surgery for this. My plan would be to try to re-establish the wound VAC and see if we can expedite the closure of this wound. Her albumin is about 4 today so nutritionally she is catching up. Will plan to get a dietary consult for evaluation as well. KATERINE
[2017-04-30] MEDS ORDERED: METOCLOPRAMIDE HCL 10 MG TABLET PO PRN (13:40)
--- NOTE | 2017-04-30 13:58 | PROGRESS NOTE: IM APSO ---
Assessment and Plan - Date of Encounter Date of Encounter: 04/30/17 (1) Disuse muscle atrophy Status: Chronic Assessment and plan: Mobilize as able, probably a short hospital stay. Current Visit: No (2) Hypertension Status: Chronic Assessment and plan: BP high off and on, needs routine meds, hasn't had due to bowel obstruction. Current Visit: No (3) Bowel obstruction Status: Suspected Assessment and plan: Mild findings on imaging, pt clinically improving, trial of Reglan with meals, probable d/c soonish if all goes well. Pt understands that surgery is not urgently needed, and the future will tell if she needs intervention for this recurring issue, but she still has open wounds from first surgery, so not ideal to reopen. Drug/drug interactions reglan and Lexapro are not serious, we can monitor for serotonin syndrome, her intermittent obstruction is a more serious issue. Thanks to Dr Patterson for providing direction on all this. Current Visit: Yes - Time Spent With Patient Total time spent with greater than 50% in coordination of care (as documented) at patient's floor/unit and/or counseling patient: IM: PN Subjective General: fatigue Gastrointestinal: abdominal pain (improving), bloating IM: PN Objective Exam - I&O/Vital Signs I&O: Intake & Output 04/29/17 04/30/17 04/30/17 21:59 05:59 13:59 Intake Total 639 Output Total 225 Balance 414 Weight 66.497 kg Intake: IV 639 Right Hand 639 Oral 0 Output: Urine 225 Other: Urine Appearance Clear Clear Urine Color Yellow Yellow Stool Size Moderate Moderate Stool Characteristics Liquid Liquid Voiding Method Toilet Toilet # Voids 1 # Bowel Movements 1 Vital Signs: Last Vital Signs Temp 36.5 C 04/30/17 11:00 Pulse 65 04/30/17 11:00 Resp 16 04/30/17 11:00 BP 187/77 04/30/17 11:00 Pulse Ox 91 04/30/17 11:00 Oxygen Flow Rate 2 Oxygen Delivery Method Nasal Cannula - Constitutional General appearance: Absent: acute distress - ENT ENT exam: Present: mucous membranes moist - Respiratory Respiratory exam: Present: clear - Cardiovascular Cardiovascular exam: Present: RRR - GI/Abdominal GI/Abdominal exam: Present: diminished bowel sounds, soft. Absent: tenderness - Extremities Exam Extremities exam: Absent: edema - Lab Labs: Laboratory Last Values WBC 9.9 X 10^3uL (3.9-10.7) 04/29/17 23: RBC 4.45 X 10^6uL (4.20-6.10) 04/29/17 23:28 Hgb 12.9 g/dL (12.0-16.0) 04/29/17 23:28 Hct 38.5 % (36.0-48.0) 04/29/17 23: MCV 86.6 fL (80.0-100.0) 04/29/17 23: MCH 29.0 pg (29.0-35.0) 04/29/17 23: MCHC 33.5 g/dL (32.0-36.0) 04/29/17 23: RDW 14.6 % (11.5-14.5) H 04/29/17 23: Plt Count 504 X 10^3uL (130-440) H 04/29/17 23: MPV 7.6 fL (7.4-10.4) 04/29/17 23:28 Neutrophils % 58.1 % (54.0-75.0) 04/29/17 23: Lymphocytes % 36.8 % (20.0-40.0) 04/29/17 23: Eosinophils % 0.2 % (0.0-6.0) 04/29/17 23: Basophils % 0.4 % (0.0-2.0) 04/29/17 23: Neutrophils # 5.9 X 10^3uL (2.6-6.7) 04/29/17 23: Lymphocytes # 3.6 X 10^3uL (0.8-3.8) 04/29/17 23: Monocytes 4.5 % (2.0-10.0) 04/29/17 23: Monocytes # 0.4 X 10^3uL (0.2-1.0) 04/29/17 23: Eosinophils # 0.0 X 10^3uL (0.0-0.4) 04/29/17 23:28 Basophils # 0.0 X 10^3uL (0.0-0.1) 04/29/17 23:28 PT 13.9 sec (13.0-16.6) 04/29/17 23:28 INR 1.0 04/29/17 23:28 Sodium 139 mmol/L (137-145) 04/29/17 23:28 Potassium 3.6 mmol/L (3.5-5.1) 04/29/17 23:28 Chloride 104 mmol/L (98-107) 04/29/17 23:28 Carbon Dioxide 27 mmol/L (22-30) 04/29/17 23:28 BUN 10 mg/dL (7-17) 04/29/17 23:28 Creatinine 0.7 mg/dL (0.5-1.0) 04/29/17 23:28 GFR Calculation > 60 mL/min 04/29/17 23:28 Glucose 134 mg/dL (70-100) H 04/29/17 23:28 Calcium 9.6 mg/dL (8.4-10.2) 04/29/17 23:28 Total Bilirubin 0.7 mg/dL (0.2-1.3) 04/29/17 23:28 Direct Bilirubin 0.1 mg/dL (0.0-0.4) 04/29/17 23:28 AST 41 U/L (14-36) H 04/29/17 23:28 ALT 34 U/L (9-52) 04/29/17 23:28 Alkaline Phosphatase 99 U/L (38-126) 04/29/17 23:28 Total Protein 7.3 g/dL (6.3-8.2) 04/29/17 23:28 Albumin 4.0 g/dL (3.5-5.0) 04/29/17 23:28 Lipase 47 U/L (23-300) 04/29/17 23:28 Quality Questions - VTE Prophylaxis Assessment VTE Present on Admission?: No Patient at risk for venous thromboembolism?: Yes VTE Risk Level: Moderate Risk Pharmaceutical VTE prophylaxis contraindication reason: not indicated Mechanical VTE prophylaxis contraindication reason: N/A- VTE prophylaxsis ordered
[2017-04-30] MEDS ORDERED: POTASSIUM CHLORIDE ER 10 MEQ TABLET PO SCH (14:00)
[2017-04-30] MEDS: FUROSEMIDE 20 MG TABLET PO SCH (14:51)
[2017-04-30] MEDS: LOSARTAN POTASSIUM 50 MG TABLET PO SCH (14:52)
--- NOTE | 2017-04-30 16:54 | DC SUMMARY: Gen Surgery Note ---
Discharge Summary: Surg/OB Provider: Date of Admission: 04/30/17 Admitting Provider: CRUZ GERARD MD Attending Provider: ONDINA ELIZABETH MD Discharging Provider: ONIDNA ELIZABETH MD Primary Care Provider: Discharge Date: 04/30/17 Consults: 04/30/17 10:11 Nutrition/Dietary Consult [CONS] Routine Reason: evaluate for supplements. I have contacted Luz. - Diagnosis (1) Bowel obstruction Status: Suspected Qualifiers: Intestinal obstruction type: obstruction due to adhesions Qualified Code(s): K56.5 - Intestinal adhesions [bands] with obstruction (postprocedural) (postinfection) Hospital Course: Ms. ROBBINS is a 71 year old female The patient was admitted for the third time with symptoms of SBO. She quickly resolved and at this time is tolerating a clear liquid diet. The plan is to have here stay on a near elemental diet with ensure plus tid and arginaid bid. She will be allowed a low residue diet but take reglan 5 mg po with each meal. Her wound have not healed so I have reordered the wound vac. We will work on her wound healing and nutrition. If she continues to have obstructive symptoms will plan operative treatment. Discharge - Patient/Caregiver Discharge Instructions Activity Level: as tolerated Diet: low residue Overall discharge status: patient is progressing back to baseline Home Medications: Arginine/Ascorbate Sod/June AC [Arginaid Powder] 1 each PO BID #60 powd.pack Lactose-Reduced Food [Ensure Plus] 237 ml PO TID #90 liquid Gen Surgery: Discharge Exam - Latest Vital Signs and I&O Latest Vital Signs/I&O: Vital Signs Temp 37.1 C 04/30/17 15:00 Pulse 76 04/30/17 15:00 Resp 16 04/30/17 15:00 BP 171/79 04/30/17 15:00 Pulse Ox 90 04/30/17 15:00 Intake & Output 04/29/17 04/30/17 04/30/17 17:59 05:59 17:59 Intake Total 639 Output Total 225 Balance 414 Weight 66.497 kg Intake: IV 639 Right Hand 639 Oral 0 Output: Urine 225 Other: Urine Appearance Clear Clear Urine Color Yellow Yellow Stool Size Moderate Moderate Stool Characteristics Liquid Liquid Voiding Method Toilet Toilet # Voids 1 # Bowel Movements 1 - Exam General physical exam: well developed, no distress Respiratory exam: normal expansion Abdomen exam: bowel sounds (active), soft, distended, wound (the wound is clean but has made little progress closing.......) Discharge Summary Data - Medication History Medication History: Home Medications Acetaminophen ER [Tylenol ER] 650 mg PO BID 04/30/17 Ascorbic Acid [Vitamin C*] 1,000 mg PO DAILY PRN 04/30/17 Biotin 1 mg PO DAILY 04/30/17 Calcium Carbonate [Tums X-Str] 300 mg PO DAILY PRN 04/30/17 Escitalopram Oxalate [Lexapro*] 20 mg PO DAILY 04/30/17 Furosemide [Lasix*] 20 mg PO DAILY 04/30/17 Levothyroxine [Synthroid*] 88 mcg PO DAILY 04/30/17 Losartan Potassium [Cozaar*] 50 mg PO DAILY 04/30/17 Magnesium Aspartate HCl [Maginex] 61 mg PO DAILY 04/30/17 Metoclopramide HCl [Reglan*] 10 mg PO DAILY 04/30/17 Naproxen [Naprosyn*] 500 mg PO BID 04/30/17 Omeprazole 40 mg PO DAILY 04/30/17 Oxybutynin Chloride ER [Oxybutynin Chloride ER*] 5 mg PO DAILY 04/30/17 Potassium Chloride ER [Micro-K 10 Meq*] 1 tab PO DAILY 04/30/17 Vitamin E 400 unit PO DAILY 04/30/17 aspirin EC [Aspirin EC*] 81 mg PO DAILY 04/30/17 traZODone HCL [Trazodone HCl*] 50 mg PO HS 04/30/17 Inpatient Medications 04/30/17 02:45 Famotidine in Saline, Iso-Osm [Pepcid Injection] 20 mg IV BID 04/30/17 13:40 Metoclopramide HCl [Reglan] 5 mg PO Q6H PRN 04/30/17 13:45 Furosemide [Lasix] 20 mg PO DAILY 04/30/17 14:00 Losartan Potassium [Cozaar] 50 mg PO DAILY 05/01/17 09:00 Escitalopram Oxalate [Lexapro] 20 mg PO DAILY Levothyroxine [Synthroid] 88 mcg PO DAILY Oxybutynin Chloride ER [Ditropan ER] 5 mg PO DAILY Potassium Chloride ER [Micro-K] 10 meq PO DAILY Procedures and tests throughout hospitalization: Pending Orders 04/30/17 02:45 Famotidine in Saline, Iso-Osm [Pepcid Injection] 20 mg IV BID 04/30/17 10:10 URINE CULTURE [RM] Routine 04/30/17 13:40 Metoclopramide HCl [Reglan] 5 mg PO Q6H PRN 04/30/17 13:45 Furosemide [Lasix] 20 mg PO DAILY 04/30/17 13:54 Activity: Ambulate with Assist TID 04/30/17 13:57 Arginade Extra Supplement BID Ensure Enlive (Clear) Suppl TID 04/30/17 13:58 LUCAS Hose . 04/30/17 14:00 Losartan Potassium [Cozaar] 50 mg PO DAILY 04/30/17 Lunch Clear Liquid [DIET] 05/01/17 09:00 Escitalopram Oxalate [Lexapro] 20 mg PO DAILY Levothyroxine [Synthroid] 88 mcg PO DAILY Oxybutynin Chloride ER [Ditropan ER] 5 mg PO DAILY Potassium Chloride ER [Micro-K] 10 meq PO DAILY
[2017-04-30] MEDS ORDERED: traZODone HCL 50 MG TABLET PO SCH (21:00)
[2017-04-30] MEDS ORDERED: HYDROmorphone HCL 1 MG/ML SYR IV PRN (21:03)
[2017-04-30] MEDS ORDERED: LABETALOL HCL 100 MG TABLET PO PRN (21:12)
[2017-05-01 04:02] VITALS: PULSE 70
[2017-05-01 06:23] VITALS: BP 138/64; RESP 20; TEMP 98
[2017-05-01] MEDS ORDERED: LEVOTHYROXINE 88 MCG TABLET PO SCH ×2 (06:30→09:00)
[2017-05-01] MEDS ORDERED: PANTOPRAZOLE 40 MG TABLET PO SCH (06:30)
[2017-05-01] MEDS ORDERED: NORMAL SALINE 1,000 ML IV SCH (07:00)
[2017-05-01] MEDS: LOSARTAN POTASSIUM 50 MG TABLET PO SCH (08:02)
[2017-05-01] MEDS: FUROSEMIDE 20 MG TABLET PO SCH (08:03)
[2017-05-01] MEDS: FAMOTIDINE IN SALINE, ISO-OSM 20 MG/50 ML PIGGYBACK IV SCH (08:05)
--- NOTE | 2017-05-01 08:12 | DC SUMMARY: Gen Surgery Note ---
Discharge Summary: Surg/OB Provider: Date of Admission: 04/30/17 Admitting Provider: CRUZ GERARD MD Attending Provider: ONDINA ELIZABETH MD Discharging Provider: ONDINA ELIZABETH MD Primary Care Provider: Discharge Date: 05/01/17 Consults: 04/30/17 10:11 Nutrition/Dietary Consult [CONS] Routine Reason: evaluate for supplements. I have contacted Luz. - Diagnosis (1) Bowel obstruction Status: Suspected Qualifiers: Intestinal obstruction type: obstruction due to adhesions Qualified Code(s): K56.5 - Intestinal adhesions [bands] with obstruction (postprocedural) (postinfection) Hospital Course: Ms. ROBBINS is a 71 year old female I had discharged her last night but she vomited and had abdominal pain. She is not able to tolerate liquids without vomiting and bloating up. I have arranged for transfer to [facility]. Discharge Overall discharge status: patient is not back to baseline Home Medications: Arginine/Ascorbate Sod/June AC [Arginaid Powder] 1 each PO BID #60 powd.pack Lactose-Reduced Food [Ensure Plus] 237 ml PO TID #90 liquid Disposition: [facility] Gen Surgery: Discharge Exam - Latest Vital Signs and I&O Latest Vital Signs/I&O: Vital Signs Temp 36.6 C 05/01/17 06:22 Pulse 70 05/01/17 06:22 Resp 20 05/01/17 06:22 BP 138/64 05/01/17 06:22 Pulse Ox 98 05/01/17 06:22 Intake & Output 04/30/17 05/01/17 05/01/17 17:59 05:59 17:59 Intake Total 1053 710 Output Total 725 Balance 328 710 Weight 64.682 kg Intake: IV 603 Right Hand 603 Oral 450 700 Oral Supplement 10 Output: Urine 725 Other: Urine Appearance Clear Clear Urine Color Yellow Yellow Stool Size Moderate Stool Characteristics Liquid Liquid Voiding Method Toilet Toilet # Voids 3 - Exam Respiratory exam: normal expansion Abdomen exam: bowel sounds (active), soft, distended (mild), wound (the wound is clean but has made little progress closing.......) Discharge Summary Data - Medication History Medication History: Home Medications Acetaminophen ER [Tylenol ER*] 650 mg PO BID 04/30/17 Arginine/Ascorbate Sod/June AC [Arginaid Powder] 1 each PO BID #60 powd.pack Ascorbic Acid [Vitamin C*] 1,000 mg PO DAILY PRN 04/30/17 Biotin 1 mg PO DAILY 04/30/17 Calcium Carbonate [Tums X-Str*] 300 mg PO DAILY PRN 04/30/17 Escitalopram Oxalate [Lexapro*] 20 mg PO DAILY 04/30/17 Furosemide [Lasix*] 20 mg PO DAILY 04/30/17 Lactose-Reduced Food [Ensure Plus] 237 ml PO TID #90 liquid 04/30/17 Levothyroxine [Synthroid*] 88 mcg PO DAILY 04/30/17 Losartan Potassium [Cozaar*] 50 mg PO DAILY 04/30/17 Magnesium Aspartate HCl [Maginex] 61 mg PO DAILY 04/30/17 Metoclopramide HCl [Reglan*] 5 mg PO Q6H PRN #0 tab 04/30/17 Naproxen [Naprosyn*] 500 mg PO BID 04/30/17 Omeprazole 40 mg PO DAILY 04/30/17 Oxybutynin Chloride ER [Oxybutynin Chloride ER*] 5 mg PO DAILY 04/30/17 Potassium Chloride ER [Micro-K 10 Meq*] 1 tab PO DAILY 04/30/17 Vitamin E 400 unit PO DAILY 04/30/17 aspirin EC [Aspirin EC*] 81 mg PO DAILY 04/30/17 traZODone HCL [Trazodone HCl*] 50 mg PO HS 04/30/17 Inpatient Medications 04/30/17 02:45 Famotidine in Saline, Iso-Osm [Pepcid Injection] 20 mg IV BID 04/30/17 13:40 Metoclopramide HCl [Reglan] 5 mg PO Q6H PRN 04/30/17 13:45 Furosemide [Lasix] 20 mg PO DAILY 04/30/17 14:00 Losartan Potassium [Cozaar] 50 mg PO DAILY 04/30/17 21:00 traZODone HCL [Desyrel] 150 mg PO HS 04/30/17 21:03 HYDROmorphone HCL [dilaUDID] 0.25 mg IV Q4H PRN 04/30/17 21:12 Labetalol HCl [Normodyne] 100 mg PO Q4H PRN 05/01/17 06:30 Levothyroxine [Synthroid] 88 mcg PO 0630 Pantoprazole [Protonix] 40 mg PO BEFORE BREAKFAST 05/01/17 07:00 Normal Saline [Sodium Chloride 0.9% 1000 ml] 1,000 ml IV CONT 05/01/17 09:00 Escitalopram Oxalate [Lexapro] 20 mg PO DAILY Oxybutynin Chloride ER [Ditropan ER] 5 mg PO DAILY Potassium Chloride ER [Micro-K] 10 meq PO DAILY Procedures and tests throughout hospitalization: Pending Orders 04/30/17 02:45 Famotidine in Saline, Iso-Osm [Pepcid Injection] 20 mg IV BID 04/30/17 10:10 URINE CULTURE [RM] Routine 04/30/17 13:40 Metoclopramide HCl [Reglan] 5 mg PO Q6H PRN 04/30/17 13:45 Furosemide [Lasix] 20 mg PO DAILY 04/30/17 13:54 Activity: Ambulate with Assist TID 04/30/17 13:57 Arginade Extra Supplement BID Ensure Enlive (Clear) Suppl TID 04/30/17 13:58 LUCAS Hose . 04/30/17 14:00 Losartan Potassium [Cozaar] 50 mg PO DAILY 04/30/17 17:04 Discharge ONCE 04/30/17 21:00 traZODone HCL [Desyrel] 150 mg PO HS 04/30/17 21:03 HYDROmorphone HCL [dilaUDID] 0.25 mg IV Q4H PRN 04/30/17 21:12 Labetalol HCl [Normodyne] 100 mg PO Q4H PRN 04/30/17 Lunch Clear Liquid [DIET] 05/01/17 06:30 Levothyroxine [Synthroid] 88 mcg PO 0630 Pantoprazole [Protonix] 40 mg PO BEFORE BREAKFAST 05/01/17 07:00 Normal Saline [Sodium Chloride 0.9% 1000 ml] 1,000 ml IV CONT 05/01/17 09:00 Escitalopram Oxalate [Lexapro] 20 mg PO DAILY Oxybutynin Chloride ER [Ditropan ER] 5 mg PO DAILY Potassium Chloride ER [Micro-K] 10 meq PO DAILY
[2017-05-01] MEDS ORDERED: traZODone HCL 50 MG TABLET PO SCH (09:00)
[2017-05-01] MEDS ORDERED: OXYBUTYNIN CHLORIDE ER 5 MG TABLET PO SCH (09:00)
[2017-05-01] MEDS ORDERED: ESCITALOPRAM OXALATE 10 MG TABLET PO SCH (09:00)
[2017-05-01] MEDS ORDERED: NON-FORMULARY MEDICATION (Omeprazole [Omeprazole] 40 MG) PO SCH (09:00)
[2017-05-01] MEDS ORDERED: POTASSIUM CHLORIDE ER 10 MEQ TABLET PO SCH (09:00)
[2017-05-01 09:25] VITALS: O2SAT 89
== END 2017-05-01 09:50 | disposition short-term general hospital (02) ==
LOC: ER 23:05 → IN 04-30 00:49
PROVIDERS: ADMIT Surgery; ATTEND Surgery
DX: K56.69 Other intestinal obstruction (principal); E86.0 Dehydration; R11.2 Nausea with vomiting, unspecified; I10 Essential (primary) hypertension; E03.9 Hypothyroidism, unspecified; M81.0 Age-related osteoporosis without current pathological fracture; G47.30 Sleep apnea, unspecified; F32.89 Other specified depressive episodes; Z74.3 Need for continuous supervision; Z79.899 Other long term (current) drug therapy
CPT/HCPCS: 74022; 80048; 80076; 83690; 85025; 85610; 87077; 87086; 87186; 96361; 96374; 99285; A0425; A0427; G0378; J2765; J7030

== ENCOUNTER 2017-05-09 22:31 | Inpatient (IN) | payer MEDICARE, BC ==
[2017-05-09 23:06] LABS: BASOPHILS 0.4 % (0.0-2.0); EOSINOPHILS 0.3 % (0.0-6.0); HEMATOCRIT 35.2 % (36.0-48.0); HEMOGLOBIN 11.6 g/dL (12.0-16.0); LYMPHOCYTES# 3.1 X 10^3uL (0.8-3.8); MEAN CELL VOLUME 87.1 fL (80.0-100.0); MEAN CORPUS. HGB CONCENTRATION 32.9 g/dL (32.0-36.0); MEAN CORPUSCULAR HEMOGLOBIN 28.7 pg (29.0-35.0); MEAN PLATELET VOLUME 7.7 fL (7.4-10.4); MONOCYTES 6.8 % (2.0-10.0); MONOCYTES# 0.7 X 10^3uL (0.2-1.0); NEUTROPHILS 60.5 % (54.0-75.0); NEUTROPHILS# 5.9 X 10^3uL (2.6-6.7); PLATELET COUNT 372 X 10^3uL (130-440); RED BLOOD COUNT 4.04 X 10^6uL (4.20-6.10); RED CELL DISTRIBUTION WIDTH 13.6 % (11.5-14.5); WHITE BLOOD COUNT 9.8 X 10^3uL (3.9-10.7)
[2017-05-09 23:17] LABS: ALBUMIN 3.6 g/dL (3.5-5.0); ALKALINE PHOSPHATASE 72 U/L (38-126); ALT 28 U/L (9-52); AST 19 U/L (14-36); BILIRUBIN, TOTAL 0.4 mg/dL (0.2-1.3); BLOOD UREA NITROGEN 11 mg/dL (7-17); CALCIUM 8.9 mg/dL (8.4-10.2); CHLORIDE 102 mmol/L (98-107); EST GLOMERULAR FILTRATION RATE > 60 mL/min; GLUCOSE 157 mg/dL (70-100); LIPASE 108 U/L (23-300); POTASSIUM 3.2 mmol/L (3.5-5.1); SODIUM 140 mmol/L (137-145); TOTAL PROTEIN 6.6 g/dL (6.3-8.2)
--- NOTE | 2017-05-10 00:08 | RADIOLOGY REPORT ---
HISTORY: Abdominal pain. Nausea and vomiting. COMPARISON: Radiograph from 04/29/2017. Mildly prominent loop of small bowel in the right hemiabdomen measuring up to 4.4 cm. The remainder of the bowel gas pattern is nonspecific in appearance. FINDINGS: 3 views of the abdomen obtained. Single frontal view of the chest obtained. No renal, ureteral or urinary bladder calculi are noted. There is a The bones and soft tissues are unremarkable. No free air is demonstrated. A gallstone is seen. Fontal view of the chest is unremarkable, there is no consolidation, pleural effusion, or pneumothora x, there is no bony abnormality, the cardiac silhouette is unremarkable. IMPRESSION: 1. No acute cardiopulmonary process. 2. Nonspecific bowel gas pattern with a single loop of mildly prominent small bowel in the right hem iabdomen measuring up to 4.5 cm which may be secondary to focal ileus or small bowel obstruction. 3. Cholelithiasis. Final Electronic Signature: This report was electronically signed by Arminda Sanchez MD on 05/10/2017 12:06 AM. marisol /
[2017-05-10] MEDS ORDERED: HOME MEDICATION LIST NEEDED 1 EA EACH MISC ONE (00:12)
[2017-05-10] MEDS ORDERED: ONDANSETRON HCL 4 MG/2 ML VIAL IV PRN (00:12)
--- NOTE | 2017-05-10 00:36 | ER NURSING DOCUMENTATION ---
Nurse's Notes [facility] [place] Name:Aislinn Broderick Age:71 yrs Sex:Female :1945 Arrival Date:05/09/2017 Time:22:31 Bed4 Private MD:Lj Kramer Diagnosis:Abdominal Pain, Generalized Presentation: 05/09 22:37 Acuity: TAMMI 3 rh 22:44 Presenting complaint: Patient states: abd pain on and off since january, hx of bowel lb obstruction. vomited numerous times today. d/c from [facility] on saturday. Transition of care: Home. 22:44 Method Of Arrival: Walk In Triage Assessment: 22:49 General: Appears ill, uncomfortable, Behavior is anxious. Pain: Complains of pain in lb abdomen Pain radiates to back Pain currently is 6 out of 10 on a pain scale. 05/10 00:35 GI: Abdomen is non- distended Bowel sounds present X 4 quads. Abdomen is tender to lb palpation in right upper quadrant, left upper quadrant, left lower quadrant and abdomen diffusely. Historical: - Home Meds: 1. trazodone Oral 2. levothyroxine oral 3. Furosemide Oral 4. Oxybutynin Chloride Oral 5. Potassium Chloride Oral 6. Omeprazole Oral 7. budesonide oral - PMHx: bowel obstruction; THYROID PROBLEM; GERD; - PSHx: colon resection; Appendectomy; THYROIDECTOMY; vein stripping; - Tetanus: unknown. - Ebola Screening: : Patient denies exposure to infectious person. Patient denies travel to an Ebola-affected area in the 21 days before illness onset. . - Immunization history: Flu Vaccine < 1 year. - Social history: Smoking status: Patient states was never smoker of tobacco. Patient/guardian denies using alcohol. Screenin/08 22:50 Infectious Disease Risk None. Abuse screen: Denies threats or abuse. Denies injuries lb from another. Nutritional screening: No deficits noted. Assessment: 22:50 See Triage Assessment done by same RN. Vital Signs: 22:40 BP 208 / 86; Pulse 67; Resp 22; Temp 99.0(TE); Pulse Ox 97% on R/A; Weight 65.32 kg; rh Height 5 ft. 5 in. (165.10 cm); Pain 8/10; 05/10 00:28 BP 198 / 84; Pulse 68; Resp 14; Pulse Ox 91% on 2 lpm NC; Pain 4/10; lb 00:34 BP 193 / 89; Pulse 67; Resp 16; Pulse Ox 91% on 2 lpm NC; Pain 4/10; lb 06/08 22:40 Body Mass Index 23.96 (65.32 kg, 165.10 cm) ED Course: 05/09 22:33 Patient arrived in ED. ma1 22:33 Gavin Acosta DO is Private Physician. ma1 22:36 Lj Kramer MD is Private Physician. ma1 22:37 Triage completed. rh 22:44 Nori Mehta is Primary Nurse. lb 22:45 Quinn Nice MD is Attending Physician. sc 22:50 Valuables Remains with patient Patient has correct armband on for positive lb identification. Placed in gown. Bed in low position. Call light in reach. Side rails up X 1. 22:50 Missed attempts: 20 gauge X 1 in right antecubital area, Bleeding controlled, band aid em3 applied, catheter tip intact. 22:58 Inserted saline lock: 20 gauge in right antecubital area and blood collected. em3 22:58 Labs drawn. By embedded systems engineer Sent per order to lab. em3 23:33 Port Xray Completed. cristina 05/10 00:08 Lj Kramer MD is Admitting Physician. sc Administered Medications: 05/09 23:17 Drug: Dilaudid 0.5 mg; Route: IVP; Site: right antecubital; lb 05/10 00:33 Follow up: Response: Pain is decreased lb 05/09 23:17 Drug: Zofran 4 mg; Route: IVP; Infused Over: 2 mins; Site: right antecubital; lb 05/10 00:33 Follow up: Response: Nausea is decreased lb 00:25 Drug: NS with KCl 20 mEq/L 150 ml/hr; Volume: 1000 ml; Route: IV; Rate: 150 ml/hr; lb Infused Over: 1 hrs; Site: right antecubital; 00:33 Follow up: IV Status: Infusion continued upon admission lb Outcome: 00:08 Decision to Admit by Provider. sc 00:34 Admitted to Med/surg accompanied by nurse, via stretcher, with oxygen. lb 00:34 Condition: stable 00:34 Report given to Olu GREEN 00:34 Discharge Assessment: Patient awake, alert and oriented x 3. No cognitive and/or functional deficits noted. Patient verbalized understanding of disposition instructions. 00:34 Instructed on need to admit 00:36 Patient left the ED. lb Signatures: Quinn Nice MD MD sc Abbott, Russell Atwood3 Calin, Nori Hussein Melissa ma1
--- NOTE | 2017-05-10 00:36 | ER PHYSICIAN DOCUMENTATION ---
Physician Documentation [facility] Name:Aislinn Broderick Age:71 yrs Sex:Female :1945 Arrival Date:05/09/2017 Time:22:31 Bed4 Private MD:Lj Kramer ED, Scott Disposition: 05/10/17 00:08 Admit ordered for Lj Kramer. Preliminary diagnosis is Abdominal Pain, Generalized. - Bed requested for Medical/Surgical. - Condition is Fair. - Problem is an acute exacerbation. - Symptoms are unchanged. 23 HR OBS Yes HPI: 05/09 23:46 This 71 yrs old Female presents to ER via Walk In with complaints of sc Abdominal Pain. 23:46 The patient presents with abdominal pain abdominal distention that is diffuse. Onset: in The symptoms/episode began/occurred today. The symptoms do not radiate. Associated signs and symptoms: Pertinent positives: nausea. The symptoms are described as constant, crampy. Severity of pain: At its worst the pain was moderate. The patient has experienced similar episodes in the past, multiple times. d/c'd from [facility] Saturday, on Saturday sbo had resolved on table, Dr. Isaac following, abd abscesses healing well. Historical: - Home Meds: 1. trazodone Oral 2. levothyroxine oral 3. Furosemide Oral 4. Oxybutynin Chloride Oral 5. Potassium Chloride Oral 6. Omeprazole Oral 7. budesonide oral - PMHx: bowel obstruction; THYROID PROBLEM; GERD; - PSHx: colon resection; Appendectomy; THYROIDECTOMY; vein stripping; - Tetanus: unknown. - Ebola Screening: : Patient denies exposure to infectious person. Patient denies travel to an Ebola-affected area in the 21 days before illness onset. . - Immunization history: Flu Vaccine < 1 year. - Social history: Smoking status: Patient states was never smoker of tobacco. Patient/guardian denies using alcohol. ROS: 23:48 Constitutional: Negative for fever, chills, and weight loss. sc Eyes: Negative for injury, pain, redness, and discharge. ENT: Negative for injury, pain, and discharge. Neck: Negative for injury, pain, and swelling. Cardiovascular: Negative for chest pain, palpitations, and edema. Respiratory: Negative for shortness of breath, cough, wheezing, and pleuritic chest pain. Back: Negative for injury and pain. MS/Extremity: Negative for injury and deformity. Skin: Negative for injury, rash, and discoloration. 23:48 Neuro: Negative for headache, weakness, numbness, tingling, and seizure. sc 23:48 Abdomen/GI: Positive for abdominal pain, nausea, vomiting, abdominal cramps, abdominal distension. Exam: Constitutional: This is a well developed, well nourished patient who is awake, alert, and in no acute distress. Head/Face: Normocephalic, atraumatic. Eyes: Pupils equal round and reactive to light, extra-ocular motions intact. Lids and lashes normal. Conjunctiva and sclera are non-icteric and not injected. Cornea within normal limits. Periorbital areas with no swelling, redness, or edema. ENT: Nares patent. No nasal discharge, no septal abnormalities noted. Tympanic membranes are normal and external auditory canals are clear. Oropharynx with no redness, swelling, or masses, exudates, or evidence of obstruction, uvula midline. Mucous membranes moist. Neck: Trachea midline, no thyromegaly or masses palpated, and no cervical lymphadenopathy. Supple, full range of motion without nuchal rigidity, or vertebral point tenderness. No meningismus. Chest/axilla: Normal chest wall appearance and motion. Nontender with no deformity. No lesions are appreciated. Cardiovascular: Regular rate and rhythm with a normal S1 and S2. No gallops, murmurs, or rubs. Normal PMI, no JVD. No pulse deficits. Respiratory: Lungs have equal breath sounds bilaterally, clear to auscultation and percussion. No rales, rhonchi or wheezes noted. No increased work of breathing, no retractions or nasal flaring. Skin: Warm, dry with normal turgor. Normal color with no rashes, no lesions, and no evidence of cellulitis. 23:48 Neuro: Awake and alert, GCS 15, oriented to person, place, time, and situation. sc Cranial nerves II-XII grossly intact. Motor strength 5/5 in all extremities. Sensory grossly intact. Cerebellar exam normal. Normal gait. 23:48 Abdomen/GI: Inspection: distension, that is mild, Bowel sounds: high pitched, Palpation: mild abdominal tenderness. Vital Signs: 22:40 BP 208 / 86; Pulse 67; Resp 22; Temp 99.0(TE); Pulse Ox 97% on R/A; Weight 65.32 kg; rh Height 5 ft. 5 in. (165.10 cm); Pain 8/10; 05/10 00:28 BP 198 / 84; Pulse 68; Resp 14; Pulse Ox 91% on 2 lpm NC; Pain 4/10; lb 00:34 BP 193 / 89; Pulse 67; Resp 16; Pulse Ox 91% on 2 lpm NC; Pain 4/10; lb 05/09 22:40 Body Mass Index 23.96 (65.32 kg, 165.10 cm) rh MDM: 05/09 22:45 Patient medically screened. in 23:49 Differential diagnosis: bowel obstruction, non-specific abd pain. Data reviewed: vital sc signs, nurses notes, lab test result(s), radiologic studies, plain films, and as a result, I will continue to observe the patient. Physician consultation: Quinn Patterson MD was called at 23:50, was contacted at 23:50, regarding patient's condition, and will see patient in ED, immediately. 05/09 23:11 Order name: CBC AUTO DIF, MDIF/RMOR IF IND; Complete Time: 23:34 EDMI 05/09 23:12 Interpretation: Abnormal: HEMOGLOBIN 11.6; HEMATOCRIT 35.2; mild anemia. in 05/09 23:18 Order name: BASIC METABOLIC PANEL; Complete Time: 23:34 EDMI 05/09 23:18 Order name: HEPATIC PANEL; Complete Time: 23:34 EDMI 05/09 23:18 Order name: LIPASE; Complete Time: 23:34 EDMI 05/10 02:48 Order name: UA W/ MICRO -CULTURE IF IND EDMS 05/10 06:55 Order name: CBC AUTO DIF, MDIF/RMOR IF IND EDMS 05/10 07:23 Order name: BASIC METABOLIC PANEL EDMI 05/11 07:09 Order name: BASIC METABOLIC PANEL EDMI 05/10 00:10 Order name: ABDOMEN; COMPLET W/CHEST [id number] EDMI 05/09 22:46 Order name: Iv Saline Lock; Complete Time: 23:17 sc Dispensed Medications: 23:17 Drug: Dilaudid 0.5 mg; Route: IVP; Site: right antecubital; lb 05/10 00:33 Follow up: Response: Pain is decreased lb 05/09 23:17 Drug: Zofran 4 mg; Route: IVP; Infused Over: 2 mins; Site: right antecubital; lb 05/10 00:33 Follow up: Response: Nausea is decreased lb 00:25 Drug: NS with KCl 20 mEq/L 150 ml/hr; Volume: 1000 ml; Route: IV; Rate: 150 ml/hr; lb Infused Over: 1 hrs; Site: right antecubital; 00:33 Follow up: IV Status: Infusion continued upon admission lb Signatures: Quinn Nice MD MD sc Bollock, Lynda lb
[2017-05-10] MEDS ORDERED: POTASSIUM CHLORIDE/NS 20 MEQ/1,000 ML BAG IV SCH (01:00)
[2017-05-10 02:42] LABS: URINE MUCUS NONE SEEN (Up to 25%); URINE RBC NONE SEEN (0-5/hpf); URINE SQUAMOUS EPITHELIAL CELL NONE SEEN (<= 15/hpf); URINE WBC NONE SEEN (0-4/hpf)
[2017-05-10 02:47] LABS: URINE APPEARANCE CLEAR; URINE BACTERIA NONE SEEN (<10/hpf); URINE BILIRUBIN NEGATIVE (NEGATIVE); URINE BLOOD TRACE (NEGATIVE); URINE COLOR PALE YELLOW; URINE GLUCOSE NORMAL (NEGATIVE); URINE KETONE NEGATIVE (NEGATIVE); URINE LEUKOCYTE ESTERASE NEGATIVE (NEGATIVE); URINE NITRITE NEGATIVE (NEGATIVE); URINE PROTEIN NEGATIVE (NEG - TRACE); URINE SPECIFIC GRAVITY 1.015 (0.001-1.035); URINE UROBILINOGEN 0.2mg/dL (Normal) (NEG-1mg/dL)
[2017-05-10 06:53] LABS: BASOPHILS 0.4 % (0.0-2.0); EOSINOPHILS 0.3 % (0.0-6.0); HEMATOCRIT 35.8 % (36.0-48.0); HEMOGLOBIN 11.9 g/dL (12.0-16.0); LYMPHOCYTES 20.4 % (20.0-40.0); LYMPHOCYTES# 2.2 X 10^3uL (0.8-3.8); MEAN CELL VOLUME 88.2 fL (80.0-100.0); MEAN CORPUS. HGB CONCENTRATION 33.1 g/dL (32.0-36.0); MEAN CORPUSCULAR HEMOGLOBIN 29.2 pg (29.0-35.0); MEAN PLATELET VOLUME 7.9 fL (7.4-10.4); MONOCYTES 6.8 % (2.0-10.0); MONOCYTES# 0.7 X 10^3uL (0.2-1.0); NEUTROPHILS 72.1 % (54.0-75.0); NEUTROPHILS# 7.8 X 10^3uL (2.6-6.7); PLATELET COUNT 318 X 10^3uL (130-440); RED BLOOD COUNT 4.06 X 10^6uL (4.20-6.10); RED CELL DISTRIBUTION WIDTH 13.5 % (11.5-14.5); WHITE BLOOD COUNT 10.7 X 10^3uL (3.9-10.7)
[2017-05-10 07:18] LABS: BLOOD UREA NITROGEN 8 mg/dL (7-17); CALCIUM 9.1 mg/dL (8.4-10.2); CHLORIDE 102 mmol/L (98-107); EST GLOMERULAR FILTRATION RATE > 60 mL/min; GLUCOSE 119 mg/dL (70-100); POTASSIUM 3.2 mmol/L (3.5-5.1); SODIUM 142 mmol/L (137-145)
[2017-05-10] MEDS ORDERED: NON-FORMULARY MEDICATION (Omeprazole Magnesium [Prilosec Otc] 40 MG) PO SCH (10:15)
[2017-05-10] MEDS: POTASSIUM CHLORIDE/NS 20 MEQ/1,000 ML BAG IV SCH ×2 (10:51→21:50)
[2017-05-10] MEDS: ESCITALOPRAM OXALATE 10 MG TABLET PO SCH (10:56)
[2017-05-10] MEDS ORDERED: POTASSIUM CHLORIDE ER 20 MEQ TABLET PO SCH (11:00)
[2017-05-10] MEDS: LOSARTAN POTASSIUM 50 MG TABLET PO SCH (11:37)
[2017-05-10] MEDS: OXYBUTYNIN CHLORIDE ER 5 MG TABLET PO SCH ×2 (11:37→21:22)
[2017-05-10] MEDS: LEVOTHYROXINE 88 MCG TABLET PO SCH (11:37)
[2017-05-10] MEDS: BUDESONIDE 9 MG PO SCH (13:17)
[2017-05-10] MEDS: POTASSIUM CHLORIDE ER 10 MEQ TABLET PO SCH (17:53)
[2017-05-10] MEDS ORDERED: POTASSIUM CHLORIDE ER 10 MEQ TABLET PO ONE (18:02)
[2017-05-10] MEDS ORDERED: ACETAMINOPHEN 325 MG TABLET PO ONE (19:19)
[2017-05-10] MEDS: traZODone HCL 50 MG TABLET PO SCH (21:22)
[2017-05-11] MEDS: PANTOPRAZOLE 40 MG TABLET PO SCH (06:32)
[2017-05-11 07:07] LABS: BLOOD UREA NITROGEN 12 mg/dL (7-17); CALCIUM 8.1 mg/dL (8.4-10.2); CHLORIDE 102 mmol/L (98-107); EST GLOMERULAR FILTRATION RATE > 60 mL/min; GLUCOSE 113 mg/dL (70-100); POTASSIUM 3.4 mmol/L (3.5-5.1); SODIUM 137 mmol/L (137-145)
[2017-05-11] MEDS: LOSARTAN POTASSIUM 50 MG TABLET PO SCH (08:49)
[2017-05-11] MEDS: ESCITALOPRAM OXALATE 10 MG TABLET PO SCH (08:50)
[2017-05-11] MEDS: OXYBUTYNIN CHLORIDE ER 5 MG TABLET PO SCH ×2 (08:50→20:30)
[2017-05-11] MEDS: POTASSIUM CHLORIDE ER 10 MEQ TABLET PO SCH (08:51)
[2017-05-11] MEDS: LEVOTHYROXINE 88 MCG TABLET PO SCH (08:52)
[2017-05-11] MEDS: BUDESONIDE 9 MG PO SCH (08:52)
[2017-05-11] MEDS ORDERED: BUDESONIDE 9 MG PO SCH ×2 (09:00)
[2017-05-11] MEDS: POTASSIUM CHLORIDE/NS 20 MEQ/1,000 ML BAG IV SCH (12:54)
--- NOTE | 2017-05-11 13:51 | PROGRESS NOTE: IM SOAP ---
IM: PN Subjective Interval history: Pt had flare up of SBO at 7 pm last night but doing better now. Still has very little po fluid intake. Pt declines a low residue diet at this time. No current abd pain, nausea or distention. IM: PN Objective Exam - I&O/Vital Signs I&O: Intake & Output 05/10/17 05/11/17 05/11/17 21:59 05:59 13:59 Intake Total 2160 1450 Output Total 1742 2041 Balance 418 -591 Intake: IV 200 1200 Right Antecubital 200 1200 Oral 1960 250 Output: Urine 1740 2040 Stool 2 1 Other: Urine Appearance Clear Clear Clear Urine Color Yellow Yellow Yellow Straw Straw Stool Size Moderate Moderate Moderate Stool Characteristics Formed Formed Brown Brown Brown Voiding Method Toilet Bedside Commode Bedside Commode # Voids 2 Vital Signs: Last Vital Signs Temp 37.1 C 05/11/17 11:00 Pulse 67 05/11/17 11:00 Resp 16 05/11/17 11:00 BP 138/50 05/11/17 11:00 Pulse Ox 94 05/11/17 11:00 Oxygen Flow Rate 2 Oxygen Delivery Method Room Air - Respiratory Respiratory exam: Present: clear - Cardiovascular Cardiovascular exam: Present: RRR. Absent: systolic murmur - GI/Abdominal GI/Abdominal exam: Present: normal bowel sounds, soft. Absent: organomegaly, tenderness - Extremities Exam Extremities exam: Absent: edema - Lab Labs: Laboratory Last Values WBC 10.7 X 10^3uL (3.9-10.7) 05/10/17 06:30 RBC 4.06 X 10^6uL (4.20-6.10) L 05/10/17 06:30 Hgb 11.9 g/dL (12.0-16.0) L 05/10/17 06:30 Hct 35.8 % (36.0-48.0) L 05/10/17 06:30 MCV 88.2 fL (80.0-100.0) 05/10/17 06:30 MCH 29.2 pg (29.0-35.0) 05/10/17 06:30 MCHC 33.1 g/dL (32.0-36.0) 05/10/17 06:30 RDW 13.5 % (11.5-14.5) 05/10/17 06:30 Plt Count 318 X 10^3uL (130-440) 05/10/17 06:30 MPV 7.9 fL (7.4-10.4) 05/10/17 06:30 Neutrophils % 72.1 % (54.0-75.0) 05/10/17 06:30 Lymphocytes % 20.4 % (20.0-40.0) 05/10/17 06:30 Eosinophils % 0.3 % (0.0-6.0) 05/10/17 06:30 Basophils % 0.4 % (0.0-2.0) 05/10/17 06:30 Neutrophils # 7.8 X 10^3uL (2.6-6.7) H 05/10/17 06:30 Lymphocytes # 2.2 X 10^3uL (0.8-3.8) 05/10/17 06:30 Monocytes 6.8 % (2.0-10.0) 05/10/17 06:30 Monocytes # 0.7 X 10^3uL (0.2-1.0) 05/10/17 06:30 Eosinophils # 0.0 X 10^3uL (0.0-0.4) 05/10/17 06:30 Basophils # 0.0 X 10^3uL (0.0-0.1) 05/10/17 06:30 Sodium 137 mmol/L (137-145) 05/11/17 06:10 Potassium 3.4 mmol/L (3.5-5.1) L 05/11/17 06:10 Chloride 102 mmol/L (98-107) 05/11/17 06:10 Carbon Dioxide 26 mmol/L (22-30) 05/11/17 06:10 BUN 12 mg/dL (7-17) 05/11/17 06:10 Creatinine 0.6 mg/dL (0.5-1.0) 05/11/17 06:10 GFR Calculation > 60 mL/min 05/11/17 06:10 Glucose 113 mg/dL (70-100) H 05/11/17 06:10 Calcium 8.1 mg/dL (8.4-10.2) L 05/11/17 06:10 Total Bilirubin 0.4 mg/dL (0.2-1.3) 05/09/17 10:55 Direct Bilirubin 0.0 mg/dL (0.0-0.4) 05/09/17 10:55 AST 19 U/L (14-36) 05/09/17 10:55 ALT 28 U/L (9-52) 05/09/17 10:55 Alkaline Phosphatase 72 U/L (38-126) 05/09/17 10:55 Total Protein 6.6 g/dL (6.3-8.2) 05/09/17 10:55 Albumin 3.6 g/dL (3.5-5.0) 05/09/17 10:55 Lipase 108 U/L (23-300) 05/09/17 10:55 Urine Color Pale yellow 05/10/17 02:30 Urine Appearance Clear 05/10/17 02:30 Urine pH 7.0 (5-7) 05/10/17 02:30 Ur Specific [place] 1.015 (0.001-1.035) 05/10/17 02:30 Urine Protein Negative (NEG - TRACE) 05/10/17 02:30 Urine Ketones Negative (NEGATIVE) 05/10/17 02:30 Urine Blood Trace (NEGATIVE) A 05/10/17 02:30 Urine Nitrate Negative (NEGATIVE) 05/10/17 02:30 Urine Bilirubin Negative (NEGATIVE) 05/10/17 02:30 Urine Urobilinogen 0.2mg/dl (normal) (NEG-1mg/dL) 05/10/17 02:30 Ur Leukocyte Esterase Negative (NEGATIVE) 05/10/17 02:30 Urine RBC None seen (0-5/hpf) 05/10/17 02:30 Urine WBC None seen (0-4/hpf) 05/10/17 02:30 Ur Squamous Epith Cells None seen (<= 15/hpf) 05/10/17 02:30 Urine Bacteria None seen (<10/hpf) 05/10/17 02:30 Urine Mucus None seen (Up to 25%) 05/10/17 02:30 Urine Glucose Normal (NEGATIVE) 05/10/17 02:30 Assessment and Plan - Date of Encounter Date of Encounter: 05/11/17 (1) SBO (small bowel obstruction) Status: Acute Assessment and plan: Clear liquid diet. Not ready to advance to low residue diet yet. Hx of recurrenct SBO and will be evaluated at [facility] in near future. Current Visit: Yes - Time Spent With Patient Total time spent with greater than 50% in coordination of care (as documented) at patient's floor/unit and/or counseling patient: Quality Questions - VTE Prophylaxis Assessment VTE Present on Admission?: No Patient at risk for venous thromboembolism?: No VTE Risk Level: Low Risk Pharmaceutical VTE prophylaxis contraindication reason: not indicated Mechanical VTE prophylaxis contraindication reason: not indicated
[2017-05-11] MEDS: ACETAMINOPHEN 325 MG TABLET PO PRN (18:20)
[2017-05-11] MEDS: traZODone HCL 50 MG TABLET PO SCH (20:30)
[2017-05-12] MEDS: POTASSIUM CHLORIDE/NS 20 MEQ/1,000 ML BAG IV SCH (00:27)
[2017-05-12] MEDS: PANTOPRAZOLE 40 MG TABLET PO SCH (06:25)
[2017-05-12] MEDS: LEVOTHYROXINE 88 MCG TABLET PO SCH (06:31)
[2017-05-12] MEDS: OXYBUTYNIN CHLORIDE ER 5 MG TABLET PO SCH ×2 (08:36→20:45)
[2017-05-12] MEDS: POTASSIUM CHLORIDE ER 10 MEQ TABLET PO SCH (08:36)
[2017-05-12] MEDS: LOSARTAN POTASSIUM 50 MG TABLET PO SCH (08:36)
[2017-05-12] MEDS: ESCITALOPRAM OXALATE 10 MG TABLET PO SCH (08:37)
[2017-05-12] MEDS: BUDESONIDE 9 MG PO SCH (08:39)
[2017-05-12] MEDS: POLYETHYLENE GLYCOL 3350 17 GM POWD.PACK PO SCH (08:40)
[2017-05-12] MEDS: DOCUSATE SODIUM 100 MG CAPSULE PO SCH ×2 (08:41→20:45)
--- NOTE | 2017-05-12 10:29 | PROGRESS NOTE: IM SOAP ---
IM: PN Subjective Interval history: Low residue diet but eating only small amounts. No BM since . Flatus present. No current abd pain, nausea or distention. IM: PN Objective Exam - I&O/Vital Signs I&O: Intake & Output 05/11/17 05/12/17 05/12/17 21:59 05:59 13:59 Intake Total 360 450 Output Total 625 750 Balance -265 -300 Intake: Oral 360 450 Output: Urine 625 750 Other: Urine Appearance Clear Clear Clear Urine Color Light Jodi Straw Straw Voiding Method Toilet Toilet Toilet # Voids 3 Vital Signs: Last Vital Signs Temp 37.4 C 05/12/17 06:23 Pulse 85 05/12/17 06:23 Resp 14 05/12/17 09:00 BP 161/78 05/12/17 06:23 Pulse Ox 92 05/12/17 09:00 Oxygen Flow Rate 2 Oxygen Delivery Method Room Air - Respiratory Respiratory exam: Present: clear - Cardiovascular Cardiovascular exam: Present: RRR. Absent: systolic murmur - GI/Abdominal GI/Abdominal exam: Present: normal bowel sounds, soft. Absent: organomegaly, tenderness - Extremities Exam Extremities exam: Absent: edema - Lab Labs: Laboratory Last Values WBC 10.7 X 10^3uL (3.9-10.7) 05/10/17 06:30 RBC 4.06 X 10^6uL (4.20-6.10) L 05/10/17 06:30 Hgb 11.9 g/dL (12.0-16.0) L 05/10/17 06:30 Hct 35.8 % (36.0-48.0) L 05/10/17 06:30 MCV 88.2 fL (80.0-100.0) 05/10/17 06:30 MCH 29.2 pg (29.0-35.0) 05/10/17 06:30 MCHC 33.1 g/dL (32.0-36.0) 05/10/17 06:30 RDW 13.5 % (11.5-14.5) 05/10/17 06:30 Plt Count 318 X 10^3uL (130-440) 05/10/17 06:30 MPV 7.9 fL (7.4-10.4) 05/10/17 06:30 Neutrophils % 72.1 % (54.0-75.0) 05/10/17 06:30 Lymphocytes % 20.4 % (20.0-40.0) 05/10/17 06:30 Eosinophils % 0.3 % (0.0-6.0) 05/10/17 06:30 Basophils % 0.4 % (0.0-2.0) 05/10/17 06:30 Neutrophils # 7.8 X 10^3uL (2.6-6.7) H 05/10/17 06:30 Lymphocytes # 2.2 X 10^3uL (0.8-3.8) 05/10/17 06:30 Monocytes 6.8 % (2.0-10.0) 05/10/17 06:30 Monocytes # 0.7 X 10^3uL (0.2-1.0) 05/10/17 06:30 Eosinophils # 0.0 X 10^3uL (0.0-0.4) 05/10/17 06:30 Basophils # 0.0 X 10^3uL (0.0-0.1) 05/10/17 06:30 Sodium 137 mmol/L (137-145) 05/11/17 06:10 Potassium 3.4 mmol/L (3.5-5.1) L 05/11/17 06:10 Chloride 102 mmol/L (98-107) 05/11/17 06:10 Carbon Dioxide 26 mmol/L (22-30) 05/11/17 06:10 BUN 12 mg/dL (7-17) 05/11/17 06:10 Creatinine 0.6 mg/dL (0.5-1.0) 05/11/17 06:10 GFR Calculation > 60 mL/min 05/11/17 06:10 Glucose 113 mg/dL (70-100) H 05/11/17 06:10 Calcium 8.1 mg/dL (8.4-10.2) L 05/11/17 06:10 Total Bilirubin 0.4 mg/dL (0.2-1.3) 05/09/17 10:55 Direct Bilirubin 0.0 mg/dL (0.0-0.4) 05/09/17 10:55 AST 19 U/L (14-36) 05/09/17 10:55 ALT 28 U/L (9-52) 05/09/17 10:55 Alkaline Phosphatase 72 U/L (38-126) 05/09/17 10:55 Total Protein 6.6 g/dL (6.3-8.2) 05/09/17 10:55 Albumin 3.6 g/dL (3.5-5.0) 05/09/17 10:55 Lipase 108 U/L (23-300) 05/09/17 10:55 Urine Color Pale yellow 05/10/17 02:30 Urine Appearance Clear 05/10/17 02:30 Urine pH 7.0 (5-7) 05/10/17 02:30 Ur Specific [place] 1.015 (0.001-1.035) 05/10/17 02:30 Urine Protein Negative (NEG - TRACE) 05/10/17 02:30 Urine Ketones Negative (NEGATIVE) 05/10/17 02:30 Urine Blood Trace (NEGATIVE) A 05/10/17 02:30 Urine Nitrate Negative (NEGATIVE) 05/10/17 02:30 Urine Bilirubin Negative (NEGATIVE) 05/10/17 02:30 Urine Urobilinogen 0.2mg/dl (normal) (NEG-1mg/dL) 05/10/17 02:30 Ur Leukocyte Esterase Negative (NEGATIVE) 05/10/17 02:30 Urine RBC None seen (0-5/hpf) 05/10/17 02:30 Urine WBC None seen (0-4/hpf) 05/10/17 02:30 Ur Squamous Epith Cells None seen (<= 15/hpf) 05/10/17 02:30 Urine Bacteria None seen (<10/hpf) 05/10/17 02:30 Urine Mucus None seen (Up to 25%) 05/10/17 02:30 Urine Glucose Normal (NEGATIVE) 05/10/17 02:30 Assessment and Plan - Date of Encounter Date of Encounter: 05/12/17 (1) SBO (small bowel obstruction) Status: Acute Assessment and plan: Low residue diet started but not tolerating well. Poor PO fluid intake which was encouraged. High risk of SBO worsening will need to go slow. Tincture of time. Hx of recurrenct SBO and will be evaluated at [facility] in near future. Current Visit: Yes - Time Spent With Patient Total time spent with greater than 50% in coordination of care (as documented) at patient's floor/unit and/or counseling patient:
[2017-05-12] MEDS ORDERED: ONDANSETRON ODT 4 MG TAB.RAPDIS PO PRN (10:54)
[2017-05-12] MEDS: ACETAMINOPHEN 325 MG TABLET PO PRN (11:07)
[2017-05-12] MEDS ORDERED: POTASSIUM CHLORIDE ER 10 MEQ TABLET PO ONE (11:30)
[2017-05-12] MEDS: traZODone HCL 50 MG TABLET PO SCH (20:45)
[2017-05-13] MEDS ORDERED: BISACODYL 10 MG SUPP.RECT RECTAL ONE (06:00)
[2017-05-13] MEDS: LEVOTHYROXINE 88 MCG TABLET PO SCH (06:32)
[2017-05-13] MEDS: PANTOPRAZOLE 40 MG TABLET PO SCH (06:32)
[2017-05-13 06:58] LABS: HEMATOCRIT 32.7 % (36.0-48.0); HEMOGLOBIN 10.6 g/dL (12.0-16.0); MEAN CELL VOLUME 88.6 fL (80.0-100.0); MEAN CORPUS. HGB CONCENTRATION 32.5 g/dL (32.0-36.0); MEAN CORPUSCULAR HEMOGLOBIN 28.8 pg (29.0-35.0); MEAN PLATELET VOLUME 8.9 fL (7.4-10.4); PLATELET COUNT 213 X 10^3uL (130-440); RED BLOOD COUNT 3.69 X 10^6uL (4.20-6.10); RED CELL DISTRIBUTION WIDTH 13.2 % (11.5-14.5); WHITE BLOOD COUNT 16.1 X 10^3uL (3.9-10.7)
[2017-05-13 06:59] LABS: BAND% (Manual) 14 % (0.0-1.0); BLOOD UREA NITROGEN 8 mg/dL (7-17); CHLORIDE 102 mmol/L (98-107); EST GLOMERULAR FILTRATION RATE > 60 mL/min; GLUCOSE 100 mg/dL (70-100); LYMPHOCYTE % (Manual) 14 % (20.0-40.0); MONOCYTE % (Manual) 5 % (2.0-10.0); NEUTROPHIL % (Manual) 67 % (54.0-75.0); PLATELET ESTIMATE ADEQUATE; POTASSIUM 3.8 mmol/L (3.5-5.1); SODIUM 138 mmol/L (137-145)
[2017-05-13] MEDS: ESCITALOPRAM OXALATE 10 MG TABLET PO SCH (08:31)
[2017-05-13] MEDS: DOCUSATE SODIUM 100 MG CAPSULE PO SCH ×2 (08:31→21:59)
[2017-05-13] MEDS: LOSARTAN POTASSIUM 50 MG TABLET PO SCH (08:32)
[2017-05-13] MEDS: OXYBUTYNIN CHLORIDE ER 5 MG TABLET PO SCH ×2 (08:32→21:59)
[2017-05-13] MEDS: POTASSIUM CHLORIDE ER 10 MEQ TABLET PO SCH (08:32)
[2017-05-13] MEDS: POLYETHYLENE GLYCOL 3350 17 GM POWD.PACK PO SCH (08:33)
[2017-05-13] MEDS: BUDESONIDE 9 MG PO SCH (08:33)
[2017-05-13] MEDS ORDERED: [UNRECOGNIZED DRUG - REMARK] PO SCH (10:15)
[2017-05-13] MEDS ORDERED: FUROSEMIDE 20 MG TABLET PO SCH (11:30)
[2017-05-13] MEDS: ACETAMINOPHEN 325 MG TABLET PO PRN (13:17)
--- NOTE | 2017-05-13 15:05 | US REPORT ---
HISTORY: Pain COMPARISON: Abdominal film from May 09, CT scan from April 08 FINDINGS: The liver is slightly heterogeneous, and also shows increased echogenicity consistent with fatty infi ltration, but no focal abnormalities. As noted on the CT and plain x-ray, there is a large gallstone. It measures at least 16 mm in size. There was a sonographic Daniel sign. There is minimal pericholecystic fluid. There is gallbladder wal l thickening, measuring 5 to 6 mm. There is also a small amount of sludge. Findings suggest cholecyst itis. Common bile duct is enlarged at 8 mm. The right kidney measures 10.1 cm in length. It is normal in size and appearance. The left kidney and spleen were not scanned. The visualized portions of the abdominal aorta, IVC, and pancreas are unremarkable. No free fluid is noted. IMPRESSION: Abnormal gallbladder, with a large calcified gallstone, a small amount of sludge, gallbladder wall th ickening and minimal pericholecystic fluid. Sonographic Daniel sign suggest acute cholecystitis. Comm on duct measures 8 mm. Moderate diffuse fatty infiltration of the liver. Report discussed with Dr. Patterson Final Electronic Signature: This report was electronically signed by Ronnie Nettles MD on 05/13/2017 3 :03 PM. [email or web address] /
[2017-05-13 17:06] LABS: URINE APPEARANCE CLEAR; URINE COLOR YELLOW; URINE MUCUS NONE SEEN (Up to 25%); URINE RBC NONE SEEN (0-5/hpf); URINE SPECIFIC GRAVITY 1.015 (0.001-1.035)
[2017-05-13 17:07] LABS: URINE BILIRUBIN NEGATIVE (NEGATIVE); URINE BLOOD TRACE (NEGATIVE); URINE GLUCOSE NORMAL (NEGATIVE); URINE KETONE NEGATIVE (NEGATIVE); URINE LEUKOCYTE ESTERASE NEGATIVE (NEGATIVE); URINE NITRITE NEGATIVE (NEGATIVE); URINE PROTEIN NEGATIVE (NEG - TRACE); URINE UROBILINOGEN 0.2mg/dL (Normal) (NEG-1mg/dL); URINE WBC 0-4/hpf (0-4/hpf)
[2017-05-13 17:08] LABS: URINE BACTERIA NONE SEEN (<10/hpf); URINE SPERM NONE SEEN; URINE SQUAMOUS EPITHELIAL CELL 0-5/hpf (<= 15/hpf)
[2017-05-13] MEDS ORDERED: AMOX TR/CLAV 875/125 MG 1 TAB TABLET PO SCH (21:00)
[2017-05-13] MEDS: traZODone HCL 50 MG TABLET PO SCH (21:59)
[2017-05-14 06:02] LABS: HEMATOCRIT 30.6 % (36.0-48.0); HEMOGLOBIN 10.2 g/dL (12.0-16.0); MEAN CELL VOLUME 87.1 fL (80.0-100.0); MEAN CORPUS. HGB CONCENTRATION 33.3 g/dL (32.0-36.0); MEAN PLATELET VOLUME 8.3 fL (7.4-10.4); PLATELET COUNT 225 X 10^3uL (130-440); RED BLOOD COUNT 3.52 X 10^6uL (4.20-6.10); RED CELL DISTRIBUTION WIDTH 13.4 % (11.5-14.5); WHITE BLOOD COUNT 15.5 X 10^3uL (3.9-10.7)
[2017-05-14 06:18] LABS: A/G RATIO 0.9; ALBUMIN 2.7 g/dL (3.5-5.0); ALKALINE PHOSPHATASE 134 U/L (38-126); ALT 28 U/L (9-52); AST 16 U/L (14-36); BILIRUBIN, DIRECT 0.1 mg/dL (0.0-0.4); BILIRUBIN, TOTAL 0.6 mg/dL (0.2-1.3); BLOOD UREA NITROGEN 11 mg/dL (7-17); CALCIUM 8.3 mg/dL (8.4-10.2); CHLORIDE 100 mmol/L (98-107); EST GLOMERULAR FILTRATION RATE > 60 mL/min; GLUCOSE 99 mg/dL (70-100); POTASSIUM 3.6 mmol/L (3.5-5.1); SODIUM 137 mmol/L (137-145); TOTAL PROTEIN 5.6 g/dL (6.3-8.2)
[2017-05-14] MEDS: LEVOTHYROXINE 88 MCG TABLET PO SCH (06:36)
[2017-05-14] MEDS: PANTOPRAZOLE 40 MG TABLET PO SCH (06:36)
[2017-05-14 06:39] LABS: BAND% (Manual) 4 % (0.0-1.0); BASOPHIL % (Manual) 0 % (0.0-2.0); EOSINOPHIL % (Manual) 0 % (0.0-6.0); LYMPHOCYTE % (Manual) 12 % (20.0-40.0); MONOCYTE % (Manual) 5 % (2.0-10.0); NEUTROPHIL % (Manual) 79 % (54.0-75.0)
[2017-05-14 06:40] LABS: PLATELET ESTIMATE ADEQUATE
[2017-05-14] MEDS: ACETAMINOPHEN 325 MG TABLET PO PRN (06:40)
[2017-05-14 07:08] VITALS: BP 163/79; PULSE 75; RESP 14; TEMP 99.4; O2SAT 94
--- NOTE | 2017-05-14 09:23 | DC SUMMARY: Gen Surgery Note ---
Discharge Summary: Surg/OB Provider: Date of Admission: 05/10/17 Admitting Provider: YOSVANY OSBORNE Attending Provider: ONDINA ELIZABETH MD Discharging Provider: ONDINA ELIZABETH MD Primary Care Provider: Discharge Date: 05/14/17 - Diagnosis (1) Small bowel stricture Status: Acute (2) Cholecystitis Status: Acute Hospital Course: Ms. ROBBINS is a 71 year old female She was admitted on saturday with upper abdominal pain which improved initially. She has been hospitilized on 3 occasions with symptoms of small bowel obstruction. She was at [facility] on 05/07/[address]ography showed small bowel stricture. She was discharged and started on budesonide. She returned to our ED on saturday with vague upper abdominal pain. Ultrasound yesterday showed stones, sludge, wall thickening and peircholycytic fluid. She lost her iv last night so was to have a picc placed today. She was started on po augmentin last night. Today her WBC remains elevated as is her alk. phos. Her exam shows epigastric and right upper quadrant pain. She was not medically cleared here to have surgery to arrangements were made with the surgical service at [facility] for transfer. Discharge Follow up: ALLIE LAWRENCE MD [MD] - 05/16/17 ( ) Overall discharge status: patient is not back to baseline Disposition: [facility] Gen Surgery: Discharge Exam - Latest Vital Signs and I&O Latest Vital Signs/I&O: Vital Signs Temp 37.4 C 05/14/17 07:00 Pulse 75 05/14/17 07:00 Resp 14 05/14/17 07:00 BP 163/79 05/14/17 07:00 Pulse Ox 94 05/14/17 07:00 Intake & Output 05/13/17 05/14/17 05/14/17 17:59 05:59 17:59 Intake Total 1630 690 Output Total 925 400 Balance 705 290 Intake: Oral 1630 690 Output: Urine 925 400 Other: Urine Appearance Clear Clear Urine Color Yellow Pale Yellow Stool Size Moderate Stool Characteristics Liquid Voiding Method Toilet Toilet # Voids 1 # Bowel Movements 3 - Exam General physical exam: well developed, well nourished, no distress, cachetic Abdomen exam: tender (RUQ and epigastrium), bowel sounds (present.), distended ( mid), surgical scars (healing incisions from her post op wound infection) Discharge Summary Data - Medication History Medication History: Home Medications Budesonide [Budesonide EC] 9 mg PO DAILY 05/10/17 Calcium Carbonate [Tums X-Str] 300 mg PO DAILY 05/10/17 Escitalopram Oxalate [Lexapro*] 20 mg PO DAILY 05/10/17 Furosemide [Lasix*] 40 mg PO DAILY 05/10/17 Levothyroxine [Synthroid*] 88 mcg PO DAILY 05/10/17 Losartan Potassium [Cozaar*] 50 mg PO DAILY 05/10/17 Omeprazole Magnesium [Prilosec Otc] 40 mg PO DAILY 05/10/17 Oxybutynin Chloride ER [Oxybutynin Chloride ER*] 5 mg PO BID 05/10/17 Potassium Chloride ER [K-Dur*] 10 meq PO DAILY 05/10/17 traZODone HCL [Trazodone HCl*] 150 mg PO HS 05/10/17 Inpatient Medications 05/10/17 10:15 Escitalopram Oxalate [Lexapro] 20 mg PO DAILY 05/10/17 11:00 Losartan Potassium [Cozaar] 50 mg PO DAILY Oxybutynin Chloride ER [Ditropan ER] 5 mg PO BID 05/10/17 11:17 metoprolol TARTRATE [Lopressor] 5 mg IV Q6H PRN 05/10/17 21:00 traZODone HCL [Desyrel] 150 mg PO HS 05/10/17 22:47 Acetaminophen [Tylenol] 650 mg PO Q6H PRN 05/11/17 06:30 Pantoprazole [Protonix] 40 mg PO BEFORE BREAKFAST 05/11/17 09:00 Potassium Chloride ER [Micro-K] 10 meq PO DAILY 05/12/17 06:30 Levothyroxine [Synthroid] 88 mcg PO DAILY@0630 05/12/17 09:00 Docusate Sodium [Colace] 100 mg PO BID Polyethylene Glycol 3350 [miraLAX] 17 gm PO DAILY 05/13/17 11:30 Furosemide [Lasix] 40 mg PO DAILY 05/13/17 21:00 Amox Tr/Clav 875/125 mg [Augmentin 875/125] 1 tab PO BID Procedures and tests throughout hospitalization: Completed Lab Orders 05/11/17 06:10 BMP [BASIC METABOLIC PANEL] [CHEM] AMDRAW 05/13/17 05:55 BMP [BASIC METABOLIC PANEL] [CHEM] AMDRAW CBC W/ MANUAL DIFFERENTIAL [HEM] Routine 05/13/17 10:06 ua /c m [UA W/ MICRO -CULTURE IF IND] [URINE] Routine 05/14/17 05:55 BILIRUBIN, DIRECT [CHEM] Routine CBC W/ MANUAL DIFFERENTIAL [HEM] AMDRAW cmp [COMPREHENSIVE METABOLIC PANEL] [CHEM] AMDRAW Completed Imaging Orders 05/13/17 10:07 ultrasound [US ABD LIMITED 05010] [US] Urgent Pending Orders 05/10/17 10:15 Escitalopram Oxalate [Lexapro] 20 mg PO DAILY 05/10/17 11:00 Losartan Potassium [Cozaar] 50 mg PO DAILY Oxybutynin Chloride ER [Ditropan ER] 5 mg PO BID 05/10/17 11:17 metoprolol TARTRATE [Lopressor] 5 mg IV Q6H PRN 05/10/17 21:00 traZODone HCL [Desyrel] 150 mg PO HS 05/10/17 22:47 Acetaminophen [Tylenol] 650 mg PO Q6H PRN 05/11/17 06:30 Pantoprazole [Protonix] 40 mg PO BEFORE BREAKFAST 05/11/17 09:00 Potassium Chloride ER [Micro-K] 10 meq PO DAILY 05/11/17 13:40 Miscellaneous Care Order . 05/11/17 13:51 Activity: Ambulate TID Activity: Up to Chair TID 05/11/17 13:56 Admit: Inpatient Routine 05/11/17 Dinner Low Fiber/Residue 05/12/17 06:30 Levothyroxine [Synthroid] 88 mcg PO DAILY@0630 05/12/17 09:00 Docusate Sodium [Colace] 100 mg PO BID Polyethylene Glycol 3350 [miraLAX] 17 gm PO DAILY 05/13/17 11:30 Furosemide [Lasix] 40 mg PO DAILY 05/13/17 21:00 Amox Tr/Clav 875/125 mg [Augmentin 875/125] 1 tab PO BID 05/14/17 08:00 PICC [Insert PICC Line] ONCE Labs on day of discharge: Labs from last 24 hours 05/14/17 05/13/17 05:55 10:06 WBC 15.5 H RBC 3.52 L Hgb 10.2 L Hct 30.6 L MCV 87.1 MCH 29.0 MCHC 33.3 RDW 13.4 Plt Count 225 MPV 8.3 Total Counted 100 Neutrophils % (Manual) 79 H Band Neuts % (Manual) 4 H Lymphocytes % (Manual) 12 L Atypical Lymphs % (Man) 0 Monocytes % (Manual) 5 Eosinophils % (Manual) 0 Basophils % (Manual) 0 Platelet Estimate Adequate Sodium 137 Potassium 3.6 Chloride 100 Carbon Dioxide 29 BUN 11 Creatinine 0.6 GFR Calculation > 60 Glucose 99 Calcium 8.3 L Total Bilirubin 0.6 Direct Bilirubin 0.1 AST 16 ALT 28 Alkaline Phosphatase 134 H Total Protein 5.6 L Albumin 2.7 L D Albumin/Globulin Ratio 0.9 Urine Color Yellow Urine Appearance Clear Urine pH 6.0 Ur Specific [place] 1.015 Urine Protein Negative Urine Ketones Negative Urine Blood Trace A Urine Nitrate Negative Urine Bilirubin Negative Urine Urobilinogen 0.2mg/dl (normal) Ur Leukocyte Esterase Negative Urine RBC None seen Urine WBC 0-4/hpf Ur Squamous Epith Cells 0-5/hpf Urine Bacteria None seen Urine Mucus None seen Urine Sperm None seen Urine Glucose Normal
[2017-05-14] MEDS ORDERED: ONDANSETRON HCL 4 MG/2 ML VIAL ONE (09:55)
[2017-05-14] MEDS ORDERED: LACTATED RINGERS 1,000 ML IV ONE (09:56)
[2017-05-14] MEDS ORDERED: ONDANSETRON HCL 4 MG/2 ML VIAL IV ONE (09:59)
[2017-05-14] MEDS ORDERED: LACTATED RINGERS 1,000 ML IV SCH (10:00)
--- NOTE | 2017-05-24 08:25 | HISTORY & PHYSICAL ---
History of Present Illness (Quinn Patterson M.D.; 05/10/2017 9:38 AM) The patient is a 71 year old female who presents with abdominal pain. The onset of the pain has been gradual and has been occurring in a persistent pattern for 1 day. The course has been decreasing. The pain is described as a moderate sharp pain. The pain is described as being located in the right upper quadrant and radiates to the back. The pain is not relieved by anything. The symptoms have been associated with abdominal distention and bloating. There is a medical history of laparotomy. Previous evaluations have included CT scan. She had been eating regular food the last few days. Last night the pain came on and was associated with nausea and vomiting. She was at [facility] earlier in the week and was noted to have 3 small bowel strictures. She is have small bowel endoscopy at [facility] to dilate these strictures. Problem List/Past Medical (Quinn Patterson M.D.; 05/10/2017 9:39 AM) Cortical senile cataract of both eyes (H25.013) Developing cataracts OU. Dry eye syndrome, bilateral (H04.123) Dysfunctional tear syndrome. 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) Pes planus (M21.40) Bilateral Knee Osteoarthritis (M17.11) Small bowel obstruction, partial (K56.69) History of colon polyps (Z86.010) GI bleed (K92.2) Status post left knee replacement (Z96.652) Other elevated white blood cell (WBC) count (D72.828) Essential hypertension with goal blood pressure less than 130/80 (I10) Hypothyroidism, adult (E03.9) Small bowel obstruction due to postoperative adhesions (K56.5) Osteoarthritis Sleep apnea (780.57) (G47.30) Depression (311.) (F32.9) OAB (overactive bladder) (596.51) Deep vein thrombosis (DVT) of axillary vein of right upper extremity, 1977 after childbirth and following placement of a right arm picc line. Allergies (Quinn Patterson M.D.; 05/10/2017 9:39 AM) Cephalosporins (Rocephin, Keflex, Cephalexin, Ceclor, Ceftin...) Ceclor caused hives. Family History (Quinn Patterson M.D.; 05/10/2017 9:39 AM) No Significant Family Ocular History Mother Breast cancer, Ovarian Cancer. age 82, had breast first and then later ovarian Father Colon Cancer. Social History (Quinn Patterson M.D.; 05/10/2017 9:39 AM) Vehicle Driving Yes. Tobacco use Former smoker. Alcohol Use None. Number of Children Biological, 2. Non Drinker/No Alcohol Use Marital status . Medication History (Quinn Patterson M.D.; 05/10/2017 9:44 AM) Budesonide (3MG Capsule DR Burgos, 3 Oral daily) Active. / History (Quinn Patterson M.D.; 05/10/2017 9:39 AM) Deliveries (Parity) 2002 Delivery Mode vaginal Pregnancies () 2 Past Surgical History (Quinn Patterson M.D.; 05/10/2017 9:39 AM) Tubal Ligation Varicose Vein Ligation and Stripping Thyroidectomy; Total Breast Biopsy - Both Knee Replacement, Total Left. Colectomy Date: 02/01/2017. This was complicated by a post op ileus requiring NGT placement. She later developed a wound infection requiring a wound vac. Appendectomy Health Maintenance History (Quinn Patterson M.D.; 05/10/2017 9:39 AM) Mammogram, [id number] Normal. Review of Systems (Quinn Patterson M.D.; 05/10/2017 9:39 AM) General Present- Appetite Loss and Fatigue. Not Present- Chills and Feeling well. Respiratory Not Present- Shortness of Breath. Cardiovascular Not Present- Chest Pain. Gastrointestinal Present- Constipation, Diarrhea and GI Problems. Female Genitourinary Not Present- Dysuria. Hematology Present- Anemia. Vitals (Quinn Patterson M.D.; 05/10/2017 9:46 AM) 05/10/2017 9:44 AM Pain Level: 3/10 Temp.: 36.5C Pulse: 63 (Regular) Resp.: 63 (Unlabored) Peak Flow: 2L /min P.OX: 98% (Room air) BP: 191/79 (Sitting, Left Arm, Standard) Physical Exam (Quinn Patterson M.D.; 05/10/2017 9:48 AM) General Mental Status-Alert. General Appearance-Not Anxious. Orientation-Oriented X3. Chest and Lung Exam Chest and lung exam reveals -Clear. Cardiovascular Cardiovascular examination reveals -RRR, No murmurs present. Abdomen Inspection Incisional scars - Laparoscopy scars and midline. Palpation/Percussion Palpation and Percussion of the abdomen reveal - Soft and Non Tender. Abdominal Mass Palpable - Location - Right Upper Quadrant(this has now resolved). Auscultation Bowel sounds decreased - Generalized. Assessment & Plan (Quinn Patterson M.D.; 05/10/2017 9:51 AM) Small bowel obstruction, partial (K56.69) Impression: this appears related to small bowel strictures. Note:The plan is to refer her to for small bowel endoscopy and dilation of her strictures. Will arrange for visit with Dr. Isaac next week to arrange this. Will probably be ready for discharge in the morning. Signed by Quinn Patterson M.D. (05/10/2017 9:53 AM) KATERINE
[2017-06-26] MEDS ORDERED: KETOROLAC TROMETHAMINE 30 MG/ML VIAL ONE (23:56)
[2017-06-27] MEDS ORDERED: PHENOL SPRAY 1 SPRAY/ML BTL MUCOUS MEM ONE (01:39)
[2017-06-27] MEDS ORDERED: ONDANSETRON HCL 4 MG/2 ML VIAL ONE (08:30)
== END 2017-05-14 09:32 | disposition short-term general hospital (02) | DRG 446 ==
LOC: ER 22:31 → IN 05-10 00:25 → OBSVTOIN 05-10 00:25
PROVIDERS: ADMIT Hospitalist; ATTEND Surgery
DX: K80.01 Calculus of gallbladder with acute cholecystitis with obstruction (principal); E03.9 Hypothyroidism, unspecified; G47.30 Sleep apnea, unspecified; Z86.718 Personal history of other venous thrombosis and embolism; I10 Essential (primary) hypertension; Z86.010 Personal history of colon polyps; M17.11 Unilateral primary osteoarthritis, right knee; F32.89 Other specified depressive episodes; Z79.899 Other long term (current) drug therapy; Z74.3 Need for continuous supervision
CPT/HCPCS: 36415; 74022; 76705; 80048; 80053; 80076; 81001; 82248; 83690; 85007; 85025; 85027; 96374; 96375; 96376; 99285; A0425; A0429; J1170; J2405; J3480; J7120

== ENCOUNTER 2017-06-01 14:34 | Observation (INO) | payer MEDICARE, BC ==
[2017-06-01 15:23] LABS: BASOPHIL# 0.1 X 10^3uL (0.0-0.1); LYMPHOCYTES# 2.6 X 10^3uL (0.8-3.8); RED BLOOD COUNT 3.98 X 10^6uL (4.20-6.10)
[2017-06-01 15:27] LABS: BASOPHILS 0.5 % (0.0-2.0); EOSINOPHILS 0.2 % (0.0-6.0); HEMATOCRIT 34.2 % (36.0-48.0); HEMOGLOBIN 11.5 g/dL (12.0-16.0); LYMPHOCYTES 17.7 % (20.0-40.0); MEAN CELL VOLUME 85.9 fL (80.0-100.0); MEAN CORPUS. HGB CONCENTRATION 33.7 g/dL (32.0-36.0); MEAN PLATELET VOLUME 7.8 fL (7.4-10.4); MONOCYTES 3.5 % (2.0-10.0); MONOCYTES# 0.5 X 10^3uL (0.2-1.0); NEUTROPHILS 78.1 % (54.0-75.0); NEUTROPHILS# 11.8 X 10^3uL (2.6-6.7); RED CELL DISTRIBUTION WIDTH 13.9 % (11.5-14.5)
[2017-06-01 15:29] LABS: ALBUMIN 3.6 g/dL (3.5-5.0); ALKALINE PHOSPHATASE 183 U/L (38-126); ALT 31 U/L (9-52); AMYLASE 62 U/L (30-110); AST 28 U/L (14-36); BILIRUBIN, DIRECT 0.1 mg/dL (0.0-0.4); BILIRUBIN, TOTAL 0.4 mg/dL (0.2-1.3); BLOOD UREA NITROGEN 15 mg/dL (7-17); CALCIUM 9.8 mg/dL (8.4-10.2); CHLORIDE 103 mmol/L (98-107); EST GLOMERULAR FILTRATION RATE > 60 mL/min; GLUCOSE 130 mg/dL (70-100); LIPASE 60 U/L (23-300); POTASSIUM 4.1 mmol/L (3.5-5.1); SODIUM 136 mmol/L (137-145)
[2017-06-01 15:32] LABS: PLATELET COUNT 713 X 10^3uL (130-440)
--- NOTE | 2017-06-01 16:03 | RADIOLOGY REPORT ---
HISTORY: Abdominal pain. COMPARISON: 05/09/2017 FINDINGS: 3 views of the abdomen obtained. Single frontal view of the chest obtained. No renal, ureteral or urinary bladder calculi are noted. There are dilated small bowel loops through out the left abdomen area and there is mild to assess distention of the descending colon. There are m ultiple air-fluid levels. There is a relative possibly of gas and stool in the ascending and transver se colon. Finds a be of concern of the for distal small bowel obstruction. Less likely this could be seen with ileus. The bones and soft tissues are unremarkable. No free air or pneumatosis. Surgical clips are noted in the right upper quadrant suggestive of cholecystectomy. Frontal view the chest is stable. The cardiomediastinal silhouette is stable. Lungs are adequately ae rated with no new infiltrate. There is persistent mild elevation of the right diaphragm with right ba silar atelectasis. IMPRESSION: Distended small bowel loops in the left abdomen with air-fluid level suspicious for distal small barbie l obstruction. The configuration is less suggestive of ileus. Final Electronic Signature: This report was electronically signed by Flex Cisneros MD on 06/01/2017 4:0 1 PM. [facility] /
[2017-06-01] MEDS ORDERED: HOME MEDICATION LIST NEEDED 1 EA EACH MC ONE (17:32)
--- NOTE | 2017-06-01 18:00 | ER NURSING DOCUMENTATION ---
Nurse's Notes [facility] Name:Aislinn Broderick Age:72 yrs Sex:Female :1945 Arrival Date:06/01/2017 Time:14:34 Bed3 Private MD:Gavin Acosta Diagnosis:Bowel Obstruction Presentation: 06/01 14:43 Acuity: TAMMI 3 sc1 14:45 Presenting complaint: Patient states: epigastric pain w/nausea and vomiting on and off sc1 since last night. Transition of care: Home. Notified ED Physician of patient's arrival and CC Dr. Hackett notified. 14:45 Method Of Arrival: Private Vehicle sc1 Triage Assessment: 15:26 General: Appears distressed, Behavior is cooperative, pleasant. Pain: Complains of pain sc1 in right arm. Historical: - Allergies: Ceclor; - Home Meds: 1. Colace oral 2. Miralax Oral 3. losartan 50 mg oral tab 4. levothyroxine 88 mcg oral cap 5. Lexapro Oral 6. trazodone 150 mg oral tab 7. Oxybutynin Chloride Oral 8. Flexeril Oral 9. Lasix Oral 10. acetaminophen 650 mg oral tab - PMHx: ARTHRITIS; colon cancer; ileus; abdominal abscesses; HYPOTHYROIDISM; HYPERTENSION; DEPRESSION; Bowel Obstruction (April 18, 2017); Bowel Obstruction (April 30, 2017); - PSHx: colectomy; APPENDECTOMY; left knee replacement; TONSILLECTOMY; Cholecysectomy; - Ebola Screening: : Patient negative for fever greater than or equal to 101.5 degrees Fahrenheit, and additional compatible Ebola Virus Disease symptoms. Patient denies exposure to infectious person. Patient denies travel to an Ebola-affected area in the 21 days before illness onset. No symptoms or risks identified at this time. . - Immunization history: Flu Vaccine < 1 year. - Social history: Smoking status: Patient states was never smoker of tobacco. Patient/guardian denies using alcohol, street drugs, IV drugs, marijuana. Screenin:28 Infectious Disease Risk None. Abuse screen: Denies threats or abuse. Nutritional sc1 screening: No deficits noted. Vital Signs: 14:43 BP 166 / 92 (auto/); sc1 14:44 Pulse Ox 92% ; sc1 ED Course: 14:36 Patient arrived in ED. ama 14:36 Gavin Acosta DO is Private Physician. ama 14:43 Junie Borja, RN is Primary Nurse. sc1 14:43 Triage completed. sc1 15:11 Inserted peripheral IV: 22 gauge in right Wrist and blood collected. sc1 15:27 Notified ED Physician of patient's arrival and chief complaint. Dr. Hackett notified. Arm sc1 band placed on Bed in low position Call Light in Reach Gowned HOB Elevated Side rails up x2. Labs ordered per protocol. Drawn by ED staff. X-ray ordered. 15:50 Angel Hackett MD is Attending Physician. tl1 16:50 Joel Ignacio MD is Admitting Physician. tl1 Administered Medications: 15:14 Drug: Zofran 4 mg; Route: IVP; Infused Over: 2 mins; Site: right wrist; sc1 15:15 Drug: Dilaudid 0.5 mg; Route: IVP; Site: right wrist; sc1 Outcome: 16:52 Decision to Admit by Provider. tl1 18:00 Patient left the ED. sc1 Signatures: Junie Borja, NORMA RN sc1 Genie Hurtado Andrew, Reg Reg Angel Montenegro MD MD tl1
[2017-06-01] MEDS ORDERED: ONDANSETRON HCL 4 MG/2 ML VIAL IV PRN (19:57)
[2017-06-01] MEDS ORDERED: CYCLOBENZAPRINE HCL 10 MG TABLET PO PRN (21:10)
[2017-06-01] MEDS: ACETAMINOPHEN ER 650 MG TAB.SR.8HR PO SCH (21:37)
[2017-06-01] MEDS ORDERED: OXYBUTYNIN CHLORIDE ER 5 MG TABLET PO ONE (21:51)
[2017-06-01] MEDS: NORMAL SALINE 1,000 ML IV SCH (22:07)
[2017-06-02] MEDS: PANTOPRAZOLE 40 MG TABLET PO SCH (05:51)
[2017-06-02] MEDS: LEVOTHYROXINE 88 MCG TABLET PO SCH (05:51)
[2017-06-02] MEDS: NORMAL SALINE 1,000 ML IV SCH (05:51)
[2017-06-02 06:55] LABS: BASOPHILS 0.3 % (0.0-2.0); EOSINOPHILS 0.3 % (0.0-6.0); HEMATOCRIT 29.3 % (36.0-48.0); HEMOGLOBIN 9.3 g/dL (12.0-16.0); LYMPHOCYTES 25.4 % (20.0-40.0); LYMPHOCYTES# 2.3 X 10^3uL (0.8-3.8); MEAN CELL VOLUME 86.2 fL (80.0-100.0); MEAN CORPUS. HGB CONCENTRATION 31.7 g/dL (32.0-36.0); MEAN CORPUSCULAR HEMOGLOBIN 27.3 pg (29.0-35.0); MEAN PLATELET VOLUME 7.6 fL (7.4-10.4); MONOCYTES 5.5 % (2.0-10.0); MONOCYTES# 0.5 X 10^3uL (0.2-1.0); NEUTROPHILS 68.5 % (54.0-75.0); NEUTROPHILS# 6.4 X 10^3uL (2.6-6.7); PLATELET COUNT 579 X 10^3uL (130-440); RED CELL DISTRIBUTION WIDTH 14.2 % (11.5-14.5); WHITE BLOOD COUNT 9.2 X 10^3uL (3.9-10.7)
[2017-06-02 07:06] LABS: BLOOD UREA NITROGEN 16 mg/dL (7-17); CALCIUM 8.5 mg/dL (8.4-10.2); CHLORIDE 105 mmol/L (98-107); EST GLOMERULAR FILTRATION RATE > 60 mL/min; GLUCOSE 90 mg/dL (70-100); POTASSIUM 4.2 mmol/L (3.5-5.1); SODIUM 134 mmol/L (137-145)
--- NOTE | 2017-06-02 08:19 | HISTORY & PHYSICAL ---
HISTORY AND PHYSICAL FOR [facility] DATE OF ADMISSION: 06/01/17 PCP: Dr. Gavin Mendez ADMITTING PHYSICIAN: Dr. Aly Duran ~ Assessment and Plan: For several months this patient has been getting intermittent upper abdominal discomfort and bloating felt to be due to partial small bowel obstructions. ~2 weeks ago she had a open cholecystectomy for~subacute cholecystitis. ~She was recovering well from that until she developed ~and exacerbation of upper abdominal pain this afternoon. ~She rated it at 7/10 in severity and it was accompanied by some nausea but no vomiting. ~She did have a bowel movement this morning. ~She came to the ER for evaluation. ~Her x-ray shows some dilated small bowel loops. ~She had good response to some IV Dilaudid. ~She will be observed overnight on relative bowel rest to see if this all clears. I did have Dr. Ignacio, general surgery, evaluate her. ~ S/P open cholecystectomy She had an open cholecystectomy in mid May for subacute cholecystitis. ~Dr. Ignacio reviewed the notes and stated that the small bowel was not explored at that time. 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 ~Her postop course was very kirill with a wound infection that took several months to clear. ~It is essentially healed now. ~ Essential hypertension This is under good control now on losartan. ~ DVT (deep venous thrombosis) She has a history of right subclavian vein thrombosis due to a PICC line this past winter. ~She was on warfarin for about 6 weeks and has been off now for over 2~months~without problems. ~I will give her prophylactic Lovenox ~ Non-celiac gluten sensitivity She is good about following a gluten-free diet. ~ Non-intractable vomiting with nausea She developed nausea and vomiting today. ~This was controlled in the ED with Zofran. ~She will continue with Zofran as needed. ~ Dehydration Moderate dehydration. ~She will receive IV fluids overnight. ~ Subjective: Patient ID: Aislinn Pringle~is a 72 y.o.~female~who presents to [facility]~for an annual preventive visit. ~ HPI Refer to the A&P section above for an additional problem-oriented history, assessment, and plan. ~ CURRENT MEDICATIONS: Current Outpatient Prescriptions Medication Sig acetaminophen (TYLENOL) 325 mg tablet Take 3 tablets by mouth every 8 hours as needed for Pain, Fever or Headaches ( May take up to 4 grams daily for management of pain. ~Alternate with ibuprofen. ) for Pain. calcium carbonate (TUMS) 200 mg calcium (500 mg) chewable tablet Take 1-2 tablets by mouth daily as needed for Heartburn. cholestyramine (QUESTRAN) packet Take 1 packet by mouth 2 times daily for diarrhea s/p gallbladder removal. Mix in 8 oz liquid. escitalopram oxalate (LEXAPRO) 20 mg tablet TAKE ONE TABLET BY MOUTH ONE TIME DAILY furosemide (LASIX) 20 mg tablet Take 1 tablet by mouth daily. HOME OXYGEN Continue oxygen at 2 LPM along with CPAP during sleep ibuprofen (ADVIL,MOTRIN) 200 mg tablet for Pain. 200-400mg every 6 hours as needed for pain. ~Alternate with Tylenol. ~ Take with food. levothyroxine (SYNTHROID) 88 mcg tablet for hypothyroidism. TAKE ONE TABLET BY MOUTH ONE TIME DAILY losartan (COZAAR) 50 mg tablet TAKE ONE TABLET BY MOUTH ONE TIME DAILY omeprazole (PRILOSEC) 40 mg capsule Take 1 capsule by mouth daily. ondansetron (ZOFRAN) 4 mg tablet TAKE ONE TABLET BY MOUTH TWICE A DAY NEEDED FOR NAUSEA oxybutynin (DITROPAN) 5 mg tablet Take 1 tablet by mouth 2 times daily. potassium chloride (K-DUR,KLOR-CON) 20 mEq SR tablet TAKE ONE TABLET BY MOUTH TWICE DAILY traZODone (DESYREL) 150 mg tablet Take 1 tablet by mouth nightly at bedtime. miconazole (MITRAZOL) 2 % powder Apply topically daily for 10 days for tinea cruris. ~ No current facility-administered medications for this visit. ALLERGIES:~Ceclor [cefaclor] I have reviewed, verified and personally updated the past medical, surgical, family and social ~history. ~ Review of Systems Constitutional: Positive for appetite change~and fatigue. Negative for chills, fever~and unexpected weight change. HENT: Negative for congestion, dental problem, sinus pressure~and sore throat. ~ Respiratory: Negative for cough. ~ Cardiovascular: Negative for chest pain~and leg swelling. Gastrointestinal: Positive for abdominal distention~(Mild), abdominal pain, nausea~and vomiting. Negative for blood in stool, constipation~and diarrhea. Genitourinary: Negative for flank pain, frequency~and urgency. Musculoskeletal: Negative for arthralgias, back pain~and myalgias. Skin: Positive for wound. Negative for pallor~and rash. Neurological: Negative for weakness~and light-headedness. Hematological: Does not bruise/bleed easily. Psychiatric/Behavioral: Negative for dysphoric mood. The patient is not nervous/ anxious. ~ ~ ~~ Objective: ~ Physical Exam~ Constitutional: She is oriented to person, place, and time. No distress. Cardiovascular: Normal rate, regular rhythm~and normal heart sounds. ~ Pulmonary/Chest: Breath sounds normal. Abdominal: Soft. Normal appearance. She exhibits no distension~and no mass. Bowel sounds are decreased. There is no hepatosplenomegaly. There is tenderness~ (Mild diffuse upper abdominal). There is no rebound, no guarding~and negative Daniel's sign. Musculoskeletal: She exhibits no edema. Lymphadenopathy: ~~She has no cervical adenopathy. Neurological: She is alert~and oriented to person, place, and time. Skin: No rash~noted. No pallor. Her periumbilical scar from her original cancer surgery has a 1 cm area of crusting without active drainage. ~No surrounding erythema. The open cholecystectomy scar wound is healing well. ~There are 5 efrain still left. ~No drainage or surrounding erythema.~ Psychiatric: She has a normal mood and affect. ~ DATA: Laboratory results reviewed and are pertinent for WBC 15,000 with 78% neutrophils and 18% lymphs. ~Hemoglobin 11.5 hematocrit 34.2 platelets 713,000. ~Sodium 136 potassium 4.1, chloride 103 CO2 25 creatinine 0.7 glucose 130 LFTs normal except for alk phos of 183. ~Lipase 60 Radiology study reports viewed and are pertinent for some dilated small bowel loops in the left upper quadrant with some mild differential air-fluid levels. ~ No free air. ~~ Aly Duran MD [facility]
--- NOTE | 2017-06-02 10:58 | PROGRESS NOTE: IM APSO ---
Assessment and Plan - Date of Encounter Date of Encounter: 06/02/17 (1) Generalized weakness Status: Chronic Assessment and plan: she has been dealing with a lot of illnesses since her cecal cancer surgery with multiple hospitalizations. She was making progress prior to this readmission. We will try to ambulate her a lot so that she does not lose ground. I am hoping that she will improve quickly enough to go home tomorrow. 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 There was no sign of spread then. Current Visit: No (3) Frequent stools Status: Acute Assessment and plan: Ever since her cholecystectomy she is had some diarrhea, with the exception of yesterday. She had a negative C. difficile test last week and has not been on antibiotics. She was finding some relief from cholestyramine prior to admission. I will have her restart that. Current Visit: No (4) Hypokalemia Status: Acute Assessment and plan: This remains under control with oral potassium Current Visit: No (5) SBO (small bowel obstruction) Status: Acute Assessment and plan: On admission yesterday this patient appear judging from symptoms, abdominal x- rays, and her leukocytosis.today her symptoms are significantly improved but not resolved. Overnight she developed diarrhea, so it is certainly getting things through. She still has waves of upper abdominal crampiness, though, of uncertain etiology. She is suspected to have small bowel strictures, so may be having continued partial small bowel obstruction. Her white count has defervesced from 15 down to 9. I will cautiously try her on some clear liquids orally today. I will have her see Dr. Ignacio. Current Visit: No (6) Small bowel stricture Status: Acute Assessment and plan: She is being followed by Dr. buitrago and Dr. Patterson for a suspicion of small bowel strictures. However, a small bowel follow-through Gastrografin study on April 10 was reported as normal. Current Visit: No (7) Obstructive sleep apnea Status: Acute Assessment and plan: She uses CPAP at night for this. We will continue that here in the hospi Current Visit: Yes (8) Nocturnal hypoxia Status: Acute Assessment and plan: She usually uses 2 L of oxygen with her CPAP at night. I will have her continue that Current Visit: Yes - Time Spent With Patient Total time spent with greater than 50% in coordination of care (as documented) at patient's floor/unit and/or counseling patient: IM: PN Subjective General: fatigue, malaise, no good appetite, no fever, no chills Cardiovascular: no chest pain Respiratory: no cough Gastrointestinal: abdominal pain (Improved but not gone. Waves of pain peaking at a 4/10 severity), diarrhea (4 watery stools last night), no nausea, no vomiting Musculoskeletal: no swelling Integumentary: wound (without drainage) Neurological: no headache IM: PN Objective Exam - I&O/Vital Signs I&O: Intake & Output 06/01/17 06/02/17 06/02/17 21:59 05:59 13:59 Intake Total 1810 Output Total 627 Balance 1183 Weight 65.771 kg Intake: IV 1810 Right Wrist 1810 Output: Urine 625 Stool 2 Other: Urine Appearance Clear Clear Urine Color Yellow Yellow Stool Characteristics Liquid Voiding Method Toilet Toilet # Voids 4 Vital Signs: Last Vital Signs Temp 37.2 C 06/02/17 06:56 Pulse 71 06/02/17 06:56 Resp 16 06/02/17 09:00 BP 152/65 06/02/17 06:56 Pulse Ox 97 06/02/17 09:00 Oxygen Flow Rate 0.5 Oxygen Delivery Method Nasal Cannula - Constitutional General appearance: Present: average body habitus - ENT ENT exam: Present: mucous membranes moist - Respiratory Respiratory exam: Present: clear - GI/Abdominal GI/Abdominal exam: Present: soft. Absent: tenderness (to light palpation) - Extremities Exam Extremities exam: Absent: calf tenderness, edema - Allied Health Notes Allied health notes reviewed: nursing - Lab Labs: Laboratory Last Values WBC 9.2 X 10^3uL (3.9-10.7) 06/02/17 06:20 RBC 3.40 X 10^6uL (4.20-6.10) L 06/02/17 06:20 Hgb 9.3 g/dL (12.0-16.0) L 06/02/17 06:20 Hct 29.3 % (36.0-48.0) L 06/02/17 06:20 MCV 86.2 fL (80.0-100.0) 06/02/17 06:20 MCH 27.3 pg (29.0-35.0) L 06/02/17 06:20 MCHC 31.7 g/dL (32.0-36.0) L 06/02/17 06:20 RDW 14.2 % (11.5-14.5) 06/02/17 06:20 Plt Count 579 X 10^3uL (130-440) H 06/02/17 06:20 MPV 7.6 fL (7.4-10.4) 06/02/17 06:20 Neutrophils % 68.5 % (54.0-75.0) 06/02/17 06:20 Lymphocytes % 25.4 % (20.0-40.0) 06/02/17 06:20 Eosinophils % 0.3 % (0.0-6.0) 06/02/17 06:20 Basophils % 0.3 % (0.0-2.0) 06/02/17 06:20 Neutrophils # 6.4 X 10^3uL (2.6-6.7) 06/02/17 06:20 Lymphocytes # 2.3 X 10^3uL (0.8-3.8) 06/02/17 06:20 Monocytes 5.5 % (2.0-10.0) 06/02/17 06:20 Monocytes # 0.5 X 10^3uL (0.2-1.0) 06/02/17 06:20 Eosinophils # 0.0 X 10^3uL (0.0-0.4) 06/02/17 06:20 Basophils # 0.0 X 10^3uL (0.0-0.1) 06/02/17 06:20 Sodium 134 mmol/L (137-145) L 06/02/17 06:20 Potassium 4.2 mmol/L (3.5-5.1) 06/02/17 06:20 Chloride 105 mmol/L (98-107) 06/02/17 06:20 Carbon Dioxide 26 mmol/L (22-30) 06/02/17 06:20 BUN 16 mg/dL (7-17) 06/02/17 06:20 Creatinine 0.6 mg/dL (0.5-1.0) 06/02/17 06:20 GFR Calculation > 60 mL/min 06/02/17 06:20 Glucose 90 mg/dL (70-100) 06/02/17 06:20 Calcium 8.5 mg/dL (8.4-10.2) 06/02/17 06:20 Total Bilirubin 0.4 mg/dL (0.2-1.3) 06/01/17 15:00 Direct Bilirubin 0.1 mg/dL (0.0-0.4) 06/01/17 15:00 AST 28 U/L (14-36) 06/01/17 15:00 ALT 31 U/L (9-52) 06/01/17 15:00 Alkaline Phosphatase 183 U/L (38-126) H 06/01/17 15:00 Total Protein 7.0 g/dL (6.3-8.2) D 06/01/17 15:00 Albumin 3.6 g/dL (3.5-5.0) D 06/01/17 15:00 Amylase 62 U/L (30-110) 06/01/17 15:00 Lipase 60 U/L (23-300) 06/01/17 15:00 Quality Questions - VTE Prophylaxis Assessment VTE Present on Admission?: No Patient at risk for venous thromboembolism?: Yes VTE Risk Level: High Risk Pharmaceutical VTE prophylaxis contraindication reason: N/A- VTE prophylaxsis ordered Mechanical VTE prophylaxis contraindication reason: N/A- VTE prophylaxsis ordered
[2017-06-02] MEDS: ESCITALOPRAM OXALATE 10 MG TABLET PO SCH (11:03)
[2017-06-02] MEDS: OXYBUTYNIN CHLORIDE ER 5 MG TABLET PO SCH ×2 (11:04→20:24)
[2017-06-02] MEDS: ACETAMINOPHEN ER 650 MG TAB.SR.8HR PO SCH ×3 (11:04→20:24)
[2017-06-02] MEDS: POTASSIUM CHLORIDE ER 10 MEQ TABLET PO SCH (11:04)
[2017-06-02] MEDS: LOSARTAN POTASSIUM 50 MG TABLET PO SCH (11:04)
[2017-06-02] MEDS: FUROSEMIDE 20 MG TABLET PO SCH (11:04)
[2017-06-02] MEDS: ENOXAPARIN SODIUM 30 MG/0.3 ML SYR SUBCUT SCH (11:04)
[2017-06-02] MEDS ORDERED: NORMAL SALINE 1,000 ML IV SCH (11:13)
--- NOTE | 2017-06-02 11:36 | PROGRESS NOTE:General Surgery ---
Assessment and Plan - Date of Encounter Date of Encounter: 06/02/17 Alyssia is 2 weeks out from open cholecystectomy, and s/p resection of ceca tumor prior to that. History of multiple hospital admissions( x 5 ) for equivocal small bowel obstruction. Reportedly candidate for small bowel endoscopy at [facility],. No record whether small bowel was inspected at the time of her cholecystectomy. Presented with moderate abdominal bloating and distended loop of small bowel in left lower quadrant. This morning she is having multiple bouts of diarrhea. C.Diff studies after recent cholecystectomy were negative. She is currently on a liquid diey with supportive care. No indications for surgery at this time. - Time Spent With Patient Total time spent with greater than 50% in coordination of care (as documented) at patient's floor/unit and/or counseling patient: less than 15 minutes ANNA: Gen Surg PN Subjective Patient reports: afebrile, bowel movement, diarrhea, feels better, still having pain, no blood in stool, no fever ANNA: Gen Surgery PN Obj Exam - Latest Vital Signs and I&O Latest Vital Signs/I&O: Vital Signs Temp 37.1 C 06/02/17 11:00 Pulse 73 06/02/17 11:00 Resp 16 06/02/17 11:00 BP 152/70 06/02/17 11:00 Pulse Ox 92 06/02/17 11:00 Intake & Output 06/01/17 06/02/17 06/02/17 17:59 05:59 17:59 Intake Total 2050 Output Total 627 Balance 1423 Weight 65.771 kg Intake: IV 1810 Right Wrist 1810 Oral 240 Output: Urine 625 Stool 2 Other: Urine Appearance Clear Clear Urine Color Yellow Yellow Stool Characteristics Liquid Voiding Method Toilet Toilet # Voids 4 - Exam General physical exam: no distress Eye Exam: Present: PERRL, normal ocular movement Respiratory exam: normal expansion, normal respiratory effort Abdomen exam: soft, surgical scars (oblique cholecystectomy scar with few retained efrain, looks clear) Neurologic: normal coordination Psychiatric: Present: oriented to person, oriented to place, oriented to time, speech is normal, memory intact - Lab Labs: Laboratory Last Values WBC 9.2 X 10^3uL (3.9-10.7) 06/02/17 06:20 RBC 3.40 X 10^6uL (4.20-6.10) L 06/02/17 06:20 Hgb 9.3 g/dL (12.0-16.0) L 06/02/17 06:20 Hct 29.3 % (36.0-48.0) L 06/02/17 06:20 MCV 86.2 fL (80.0-100.0) 06/02/17 06:20 MCH 27.3 pg (29.0-35.0) L 06/02/17 06:20 MCHC 31.7 g/dL (32.0-36.0) L 06/02/17 06:20 RDW 14.2 % (11.5-14.5) 06/02/17 06:20 Plt Count 579 X 10^3uL (130-440) H 06/02/17 06:20 MPV 7.6 fL (7.4-10.4) 06/02/17 06:20 Neutrophils % 68.5 % (54.0-75.0) 06/02/17 06:20 Lymphocytes % 25.4 % (20.0-40.0) 06/02/17 06:20 Eosinophils % 0.3 % (0.0-6.0) 06/02/17 06:20 Basophils % 0.3 % (0.0-2.0) 06/02/17 06:20 Neutrophils # 6.4 X 10^3uL (2.6-6.7) 06/02/17 06:20 Lymphocytes # 2.3 X 10^3uL (0.8-3.8) 06/02/17 06:20 Monocytes 5.5 % (2.0-10.0) 06/02/17 06:20 Monocytes # 0.5 X 10^3uL (0.2-1.0) 06/02/17 06:20 Eosinophils # 0.0 X 10^3uL (0.0-0.4) 06/02/17 06:20 Basophils # 0.0 X 10^3uL (0.0-0.1) 06/02/17 06:20 Sodium 134 mmol/L (137-145) L 06/02/17 06:20 Potassium 4.2 mmol/L (3.5-5.1) 06/02/17 06:20 Chloride 105 mmol/L (98-107) 06/02/17 06:20 Carbon Dioxide 26 mmol/L (22-30) 06/02/17 06:20 BUN 16 mg/dL (7-17) 06/02/17 06:20 Creatinine 0.6 mg/dL (0.5-1.0) 06/02/17 06:20 GFR Calculation > 60 mL/min 06/02/17 06:20 Glucose 90 mg/dL (70-100) 06/02/17 06:20 Calcium 8.5 mg/dL (8.4-10.2) 06/02/17 06:20 Total Bilirubin 0.4 mg/dL (0.2-1.3) 06/01/17 15:00 Direct Bilirubin 0.1 mg/dL (0.0-0.4) 06/01/17 15:00 AST 28 U/L (14-36) 06/01/17 15:00 ALT 31 U/L (9-52) 06/01/17 15:00 Alkaline Phosphatase 183 U/L (38-126) H 06/01/17 15:00 Total Protein 7.0 g/dL (6.3-8.2) D 06/01/17 15:00 Albumin 3.6 g/dL (3.5-5.0) D 06/01/17 15:00 Amylase 62 U/L (30-110) 06/01/17 15:00 Lipase 60 U/L (23-300) 06/01/17 15:00
[2017-06-02] MEDS ORDERED: CHOLESTYRAMINE 4 GM PO PRN (12:00)
[2017-06-02] MEDS ORDERED: traZODone HCL 50 MG TABLET PO SCH (21:00)
[2017-06-03] MEDS: PANTOPRAZOLE 40 MG TABLET PO SCH (06:02)
[2017-06-03] MEDS: LEVOTHYROXINE 88 MCG TABLET PO SCH (06:02)
[2017-06-03 07:06] LABS: BASOPHILS 0.6 % (0.0-2.0); EOSINOPHILS 0.8 % (0.0-6.0); EOSINOPHILS# 0.1 X 10^3uL (0.0-0.4); HEMATOCRIT 26.8 % (36.0-48.0); HEMOGLOBIN 8.8 g/dL (12.0-16.0); LYMPHOCYTES# 1.9 X 10^3uL (0.8-3.8); MEAN CELL VOLUME 86.6 fL (80.0-100.0); MEAN CORPUSCULAR HEMOGLOBIN 28.6 pg (29.0-35.0); MEAN PLATELET VOLUME 7.5 fL (7.4-10.4); MONOCYTES 5.3 % (2.0-10.0); MONOCYTES# 0.3 X 10^3uL (0.2-1.0); NEUTROPHILS 63.3 % (54.0-75.0); NEUTROPHILS# 4.2 X 10^3uL (2.6-6.7); PLATELET COUNT 458 X 10^3uL (130-440); RED BLOOD COUNT 3.09 X 10^6uL (4.20-6.10); RED CELL DISTRIBUTION WIDTH 14.3 % (11.5-14.5); WHITE BLOOD COUNT 6.5 X 10^3uL (3.9-10.7)
[2017-06-03 07:24] LABS: BLOOD UREA NITROGEN 11 mg/dL (7-17); CALCIUM 8.6 mg/dL (8.4-10.2); CHLORIDE 112 mmol/L (98-107); EST GLOMERULAR FILTRATION RATE > 60 mL/min; GLUCOSE 75 mg/dL (70-100); POTASSIUM 3.9 mmol/L (3.5-5.1); SODIUM 137 mmol/L (137-145)
--- NOTE | 2017-06-03 08:34 | PROGRESS NOTE: IM APSO ---
Assessment and Plan - Date of Encounter Date of Encounter: 06/03/17 (1) Generalized weakness Status: Chronic Assessment and plan: she has been dealing with a lot of illnesses since her cecal cancer surgery with multiple hospitalizations. Much better today. She has walked around the loop of hallways 3 times. 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 There was no sign of spread then. Current Visit: No (3) Frequent stools Status: Acute Assessment and plan: This resolved after she took cholestyramine yesterday. I suspect it is related to her recent cholecystectomy Current Visit: No (4) Hypokalemia Status: Acute Assessment and plan: This remains under control with oral potassium Current Visit: No (5) SBO (small bowel obstruction) Status: Acute Assessment and plan: On admission this patient appeared to have an SBO judging from symptoms, abdominal x-rays, and her leukocytosis. Over the last 2 days the symptoms have resolved. She feels back to baseline today. she tolerated a regular breakfast this morning, and she is feeling fine. She is suspected to have small bowel strictures, so may be the etiology of her intermittent recurrent partial small bowel obstructions. Her white count has defervesced from 15 down to 9 then to 6. I will have her see Dr. Ignacio again today. Home this afternoon if HCT/HGB stabilizes. Current Visit: No (6) Small bowel stricture Status: Acute Assessment and plan: She is being followed by Dr. Isaac and Dr. Patterson for a suspicion of small bowel strictures. However, a small bowel follow-through Gastrografin study on April 10 was reported as normal. There is some talk about treating this endoscopically at [facility] in [place]. I will leave this up to Dr. Isaac. She is scheduled to see him toward the end of June. She will try to work this in sooner. Current Visit: No (7) Obstructive sleep apnea Status: Acute Assessment and plan: She uses CPAP at night for this. We continued that here in the hospital Current Visit: Yes (8) Nocturnal hypoxia Status: Acute Assessment and plan: She usually uses 2 L of oxygen with her CPAP at night. We have continued that Current Visit: Yes (9) Normocytic anemia Status: Acute Assessment and plan: She had a normocytic anemia with hematocrit of 34 on admission. I suspected this was postoperative in etiology. It dropped steadily throughout this admission with IV normal saline dilution. She has no signs of bleeding. I am concerned that it is dropped so low, though, (hematocrit 27). We will Hemoccult the stools and recheck a hematocrit midday. If it is improved, I will send her home and recheck the hematocrit in 2 days. Current Visit: Yes - Time Spent With Patient Total time spent with greater than 50% in coordination of care (as documented) at patient's floor/unit and/or counseling patient: Estimated anticipated discharge: today IM: PN Subjective General: good appetite, no fatigue, no malaise, no anxiety, no depression, no confusion, no fever, no chills Cardiovascular: no chest pain Respiratory: no cough Gastrointestinal: no abdominal pain, no nausea, no vomiting, no diarrhea ( resolved after cholestyramine. No blood.) Musculoskeletal: no swelling Integumentary: wound (without drainage) Neurological: no headache IM: PN Objective Exam - I&O/Vital Signs I&O: Intake & Output 06/02/17 06/03/17 06/03/17 21:59 05:59 13:59 Intake Total 800 Output Total 802 Balance -2 Weight 63.503 kg Intake: Oral 800 Output: Urine 800 Stool 2 Other: Urine Appearance Clear Urine Color Yellow Stool Characteristics Liquid Voiding Method Toilet # Bowel Movements 5 Vital Signs: Last Vital Signs Temp 37.1 C 06/03/17 07:00 Pulse 54 L 06/03/17 07:00 Resp 16 06/03/17 07:00 BP 142/44 06/03/17 07:00 Pulse Ox 96 06/03/17 07:00 Oxygen Flow Rate 2 Oxygen Delivery Method CPAP - Constitutional General appearance: Present: average body habitus - ENT ENT exam: Present: mucous membranes moist - Respiratory Respiratory exam: Present: rales (bibasilar) - GI/Abdominal GI/Abdominal exam: Present: soft. Absent: tenderness (to light palpation) - Extremities Exam Extremities exam: Absent: calf tenderness, edema - Allied Health Notes Allied health notes reviewed: nursing - Lab Labs: Laboratory Last Values WBC 6.5 X 10^3uL (3.9-10.7) 06/03/17 06:10 RBC 3.09 X 10^6uL (4.20-6.10) L 06/03/17 06:10 Hgb 8.8 g/dL (12.0-16.0) L 06/03/17 06:10 Hct 26.8 % (36.0-48.0) L 06/03/17 06:10 MCV 86.6 fL (80.0-100.0) 06/03/17 06:10 MCH 28.6 pg (29.0-35.0) L 06/03/17 06:10 MCHC 33.0 g/dL (32.0-36.0) 06/03/17 06:10 RDW 14.3 % (11.5-14.5) 06/03/17 06:10 Plt Count 458 X 10^3uL (130-440) H 06/03/17 06:10 MPV 7.5 fL (7.4-10.4) 06/03/17 06:10 Neutrophils % 63.3 % (54.0-75.0) 06/03/17 06:10 Lymphocytes % 30.0 % (20.0-40.0) 06/03/17 06:10 Eosinophils % 0.8 % (0.0-6.0) 06/03/17 06:10 Basophils % 0.6 % (0.0-2.0) 06/03/17 06:10 Neutrophils # 4.2 X 10^3uL (2.6-6.7) 06/03/17 06:10 Lymphocytes # 1.9 X 10^3uL (0.8-3.8) 06/03/17 06:10 Monocytes 5.3 % (2.0-10.0) 06/03/17 06:10 Monocytes # 0.3 X 10^3uL (0.2-1.0) 06/03/17 06:10 Eosinophils # 0.1 X 10^3uL (0.0-0.4) 06/03/17 06:10 Basophils # 0.0 X 10^3uL (0.0-0.1) 06/03/17 06:10 Sodium 137 mmol/L (137-145) 06/03/17 06:10 Potassium 3.9 mmol/L (3.5-5.1) 06/03/17 06:10 Chloride 112 mmol/L (98-107) H 06/03/17 06:10 Carbon Dioxide 21 mmol/L (22-30) L 06/03/17 06:10 BUN 11 mg/dL (7-17) 06/03/17 06:10 Creatinine 0.7 mg/dL (0.5-1.0) 06/03/17 06:10 GFR Calculation > 60 mL/min 06/03/17 06:10 Glucose 75 mg/dL (70-100) 06/03/17 06:10 Calcium 8.6 mg/dL (8.4-10.2) 06/03/17 06:10 Total Bilirubin 0.4 mg/dL (0.2-1.3) 06/01/17 15:00 Direct Bilirubin 0.1 mg/dL (0.0-0.4) 06/01/17 15:00 AST 28 U/L (14-36) 06/01/17 15:00 ALT 31 U/L (9-52) 06/01/17 15:00 Alkaline Phosphatase 183 U/L (38-126) H 06/01/17 15:00 Total Protein 7.0 g/dL (6.3-8.2) D 06/01/17 15:00 Albumin 3.6 g/dL (3.5-5.0) D 06/01/17 15:00 Amylase 62 U/L (30-110) 06/01/17 15:00 Lipase 60 U/L (23-300) 06/01/17 15:00
--- NOTE | 2017-06-03 08:41 | PROGRESS NOTE:General Surgery ---
Assessment and Plan - Date of Encounter Date of Encounter: 06/03/17 Doing well. Diarrhea has stopped after cholestyramine. No pain today. Tolerating regular diet. Hct down to 26.8 from admit at 34%, likely dilutional. Plan for observation, check stool for heme; likely candidate for discharge soon , per Dr Duran. - Time Spent With Patient Total time spent with greater than 50% in coordination of care (as documented) at patient's floor/unit and/or counseling patient: less than 15 minutes ANNA: Gen Surg PN Subjective Patient reports: afebrile, bowel movement, feels better, pain is less, tolerating a regular diet, no blood in stool, no diarrhea, no fever, no still having pain ANNA: Gen Surgery PN Obj Exam - Latest Vital Signs and I&O Latest Vital Signs/I&O: Vital Signs Temp 37.1 C 06/03/17 07:00 Pulse 54 L 06/03/17 07:00 Resp 16 06/03/17 07:00 BP 142/44 06/03/17 07:00 Pulse Ox 96 06/03/17 07:00 Intake & Output 06/02/17 06/03/17 06/03/17 17:59 05:59 17:59 Intake Total 2290 800 Output Total 627 802 Balance 1663 -2 Weight 63.503 kg Intake: IV 1810 Right Wrist 1810 Oral 480 800 Output: Urine 625 800 Stool 2 2 Other: Urine Appearance Clear Clear Urine Color Yellow Yellow Stool Characteristics Liquid Liquid Voiding Method Toilet Toilet # Voids 4 # Bowel Movements 5 - Exam Eye Exam: Present: PERRL, normal ocular movement Respiratory exam: normal expansion, normal respiratory effort Abdomen exam: soft, surgical scars (oblique cholecystectomy scar with few retained efrain, looks clear) Neurologic: normal coordination Psychiatric: Present: oriented to person, oriented to place, oriented to time, speech is normal, memory intact - Lab Labs: Laboratory Last Values WBC 6.5 X 10^3uL (3.9-10.7) 06/03/17 06:10 RBC 3.09 X 10^6uL (4.20-6.10) L 06/03/17 06:10 Hgb 8.8 g/dL (12.0-16.0) L 06/03/17 06:10 Hct 26.8 % (36.0-48.0) L 06/03/17 06:10 MCV 86.6 fL (80.0-100.0) 06/03/17 06:10 MCH 28.6 pg (29.0-35.0) L 06/03/17 06:10 MCHC 33.0 g/dL (32.0-36.0) 06/03/17 06:10 RDW 14.3 % (11.5-14.5) 06/03/17 06:10 Plt Count 458 X 10^3uL (130-440) H 06/03/17 06:10 MPV 7.5 fL (7.4-10.4) 06/03/17 06:10 Neutrophils % 63.3 % (54.0-75.0) 06/03/17 06:10 Lymphocytes % 30.0 % (20.0-40.0) 06/03/17 06:10 Eosinophils % 0.8 % (0.0-6.0) 06/03/17 06:10 Basophils % 0.6 % (0.0-2.0) 06/03/17 06:10 Neutrophils # 4.2 X 10^3uL (2.6-6.7) 06/03/17 06:10 Lymphocytes # 1.9 X 10^3uL (0.8-3.8) 06/03/17 06:10 Monocytes 5.3 % (2.0-10.0) 06/03/17 06:10 Monocytes # 0.3 X 10^3uL (0.2-1.0) 06/03/17 06:10 Eosinophils # 0.1 X 10^3uL (0.0-0.4) 06/03/17 06:10 Basophils # 0.0 X 10^3uL (0.0-0.1) 06/03/17 06:10 Sodium 137 mmol/L (137-145) 06/03/17 06:10 Potassium 3.9 mmol/L (3.5-5.1) 06/03/17 06:10 Chloride 112 mmol/L (98-107) H 06/03/17 06:10 Carbon Dioxide 21 mmol/L (22-30) L 06/03/17 06:10 BUN 11 mg/dL (7-17) 06/03/17 06:10 Creatinine 0.7 mg/dL (0.5-1.0) 06/03/17 06:10 GFR Calculation > 60 mL/min 06/03/17 06:10 Glucose 75 mg/dL (70-100) 06/03/17 06:10 Calcium 8.6 mg/dL (8.4-10.2) 06/03/17 06:10 Total Bilirubin 0.4 mg/dL (0.2-1.3) 06/01/17 15:00 Direct Bilirubin 0.1 mg/dL (0.0-0.4) 06/01/17 15:00 AST 28 U/L (14-36) 06/01/17 15:00 ALT 31 U/L (9-52) 06/01/17 15:00 Alkaline Phosphatase 183 U/L (38-126) H 06/01/17 15:00 Total Protein 7.0 g/dL (6.3-8.2) D 06/01/17 15:00 Albumin 3.6 g/dL (3.5-5.0) D 06/01/17 15:00 Amylase 62 U/L (30-110) 06/01/17 15:00 Lipase 60 U/L (23-300) 06/01/17 15:00
[2017-06-03] MEDS: ESCITALOPRAM OXALATE 10 MG TABLET PO SCH (08:45)
[2017-06-03] MEDS: LOSARTAN POTASSIUM 50 MG TABLET PO SCH (08:46)
[2017-06-03] MEDS: OXYBUTYNIN CHLORIDE ER 5 MG TABLET PO SCH (08:46)
[2017-06-03] MEDS: FUROSEMIDE 20 MG TABLET PO SCH (08:46)
[2017-06-03] MEDS: ACETAMINOPHEN ER 650 MG TAB.SR.8HR PO SCH ×2 (08:46→14:25)
[2017-06-03] MEDS: POTASSIUM CHLORIDE ER 10 MEQ TABLET PO SCH (08:46)
[2017-06-03] MEDS: ENOXAPARIN SODIUM 30 MG/0.3 ML SYR SUBCUT SCH (08:47)
[2017-06-03 10:58] VITALS: BP 135/67; PULSE 63; RESP 24; TEMP 98; O2SAT 92
--- NOTE | 2017-06-03 14:30 | DC SUMMARY: IM Note ---
Discharge Summary: IM/Peds Provider: Date of Admission: 06/01/17 Admitting Provider: BRITTANY LYNN MD Attending Provider: BRITTANY LYNN MD Discharging Provider: BRITTANY LYNN MD Primary Care Provider: Discharge Date: 06/03/17 Consults: 06/01/17 19:52 Surgical Consult [CONS] Routine Reason: recurrent upper abd pain - Diagnosis (1) Generalized weakness Status: Chronic (2) Status post right hemicolectomy Status: Chronic (3) Frequent stools Status: Acute (4) Hypokalemia Status: Acute (5) SBO (small bowel obstruction) Status: Acute (6) Small bowel stricture Status: Acute (7) Obstructive sleep apnea Status: Acute (8) Nocturnal hypoxia Status: Acute (9) Normocytic anemia Status: Acute (10) Heme positive stool Status: Acute Hospital Course: Refer to the progress note from this morning. Her repeat hematocrit was 31. This is comparable to admission. She did have heme positive stools when checked for occult blood, but no gross blood or melena. Her abdominal exam was totally benign today and she is asymptomatic. I will go ahead and discharge her and pursue outpatient workup orchestrated by her PCP, Dr. Aguilera. She will see him on 06/06/17 at 2 PM. She will come to [facility] on 06/05/17 for blood tests. - Time Spent with Patient Total time spent providing and/or coordinating discharge services: Discharge - Patient/Caregiver Discharge Instructions Activity Level: as tolerated Diet: regular; chew meets very well Follow up: MAYA AGUILERA DO [Primary Care Provider] - 06/06/17 2:00 pm Disposition: HOME, SELF-CARE Discharge Summary Data - Medication History Medication History: Home Medications RX: Calcium Carbonate [Tums X-Str*] 300 mg PO DAILY PRN 05/10/17 RX: Escitalopram Oxalate [Lexapro*] 20 mg PO DAILY 05/10/17 RX: Furosemide [Lasix*] 20 mg PO DAILY 05/10/17 RX: Levothyroxine [Synthroid*] 88 mcg PO BEFORE BREAKFAST 05/10/17 RX: Losartan Potassium [Cozaar*] 50 mg PO DAILY 05/10/17 RX: Omeprazole Magnesium [Prilosec Otc] 40 mg PO DAILY@0700 05/10/17 RX: Oxybutynin Chloride ER [Oxybutynin Chloride ER*] 5 mg PO BID 05/10/17 RX: Potassium Chloride ER [K-Dur*] 20 meq PO WITH BRKFST AND DINN 05/10/17 RX: traZODone HCL [Trazodone HCl*] 150 mg PO HS 05/10/17 RX: Acetaminophen [Tylenol*] 975 mg PO Q8H PRN 06/02/17 RX: Cholestyramine (with Sugar) [Cholestyramine Packet] 4 gm PO BID PRN RX: Ondansetron Odt [Zofran Odt*] 4 mg PO BID PRN 06/02/17 Inpatient Medications 06/01/17 19:57 Ondansetron HCl [Zofran] 4 mg IV Q6H PRN 06/01/17 21:10 Cyclobenzaprine HCl [Flexeril] 5 mg PO Q8H PRN 06/01/17 21:11 hydroMORPHone HCL [dilaUDID] 0.5 mg IV Q4H PRN 06/01/17 21:12 hydroCODone/APAP 5/325 MG [[place]] 1 tab PO Q3H PRN 06/01/17 22:00 Acetaminophen ER [Tylenol ER] 650 mg PO TID 06/02/17 06:30 Levothyroxine [Synthroid] 88 mcg PO DAILY@0630 Pantoprazole [Protonix] 40 mg PO BEFORE BREAKFAST 06/02/17 09:00 Escitalopram Oxalate [Lexapro] 20 mg PO DAILY Furosemide [Lasix] 20 mg PO DAILY Losartan Potassium [Cozaar] 50 mg PO DAILY Oxybutynin Chloride ER [Ditropan ER] 5 mg PO BID Potassium Chloride ER [Micro-K] 10 meq PO DAILY 06/02/17 12:00 Cholestyramine (with Sugar) [Cholestyramine Packet] 4 gm PO BID PRN 06/02/17 21:00 traZODone HCL [Desyrel] 150 mg PO HS Procedures and tests throughout hospitalization: Completed Lab Orders 06/03/17 06:10 BMP [BASIC METABOLIC PANEL] [CHEM] AMDRAW CBC AUTO DIF, MDIF/RMOR IF IND [HEM] AMDRAW 06/03/17 13:20 HEMATOCRIT [HEM] Routine Completed Microbiology Orders 06/03/17 09:30 Hemoccult [OCCULT BLOOD (1-3 SAMPLES)] [RM] Pending Orders 06/01/17 19:52 Surgical Consult [CONS] Routine 06/01/17 19:57 Ondansetron HCl [Zofran] 4 mg IV Q6H PRN 06/01/17 21:10 Cyclobenzaprine HCl [Flexeril] 5 mg PO Q8H PRN 06/01/17 21:11 hydroMORPHone HCL [dilaUDID] 0.5 mg IV Q4H PRN 06/01/17 21:12 hydroCODone/APAP 5/325 MG [[place]] 1 tab PO Q3H PRN 06/01/17 22:00 Acetaminophen ER [Tylenol ER] 650 mg PO TID 06/02/17 06:30 Levothyroxine [Synthroid] 88 mcg PO DAILY@0630 Pantoprazole [Protonix] 40 mg PO BEFORE BREAKFAST 06/02/17 09:00 Escitalopram Oxalate [Lexapro] 20 mg PO DAILY Furosemide [Lasix] 20 mg PO DAILY Losartan Potassium [Cozaar] 50 mg PO DAILY Oxybutynin Chloride ER [Ditropan ER] 5 mg PO BID Potassium Chloride ER [Micro-K] 10 meq PO DAILY 06/02/17 10:47 Advance Diet to Clear Liquid.. . 06/02/17 12:00 Cholestyramine (with Sugar) [Cholestyramine Packet] 4 gm PO BID PRN 06/02/17 21:00 traZODone HCL [Desyrel] 150 mg PO HS 06/03/17 14:17 Discharge ONCE 06/03/17 Breakfast Regular [DIET] Labs on day of discharge: Labs from last 24 hours 06/03/17 06/03/17 13:20 06:10 WBC 6.5 RBC 3.09 L Hgb 8.8 L Hct 31.3 L 26.8 L MCV 86.6 MCH 28.6 L MCHC 33.0 RDW 14.3 Plt Count 458 H MPV 7.5 Neutrophils % 63.3 Lymphocytes % 30.0 Eosinophils % 0.8 Basophils % 0.6 Neutrophils # 4.2 Lymphocytes # 1.9 Monocytes 5.3 Monocytes # 0.3 Eosinophils # 0.1 Basophils # 0.0 Sodium 137 Potassium 3.9 Chloride 112 H Carbon Dioxide 21 L BUN 11 Creatinine 0.7 GFR Calculation > 60 Glucose 75 Calcium 8.6 Crossmatch Cancelled IM: Discharge Physical Exam - I&O/Vital Signs I&O: Intake & Output 06/03/17 06/03/17 06/03/17 05:59 13:59 21:59 Other: Urine Appearance Clear Urine Color Yellow Stool Size Small Stool Characteristics Liquid Brown Voiding Method Toilet Vital Signs: Last Vital Signs Temp 36.6 C 06/03/17 10:57 Pulse 63 06/03/17 10:57 Resp 24 06/03/17 10:57 BP 135/67 06/03/17 10:57 Pulse Ox 92 06/03/17 10:57 Oxygen Flow Rate 0 Oxygen Delivery Method Room Air - Constitutional General appearance: Present: average body habitus - ENT ENT exam: Present: mucous membranes moist - Respiratory Respiratory exam: Present: rales (bibasilar) - GI/Abdominal GI/Abdominal exam: Present: soft. Absent: tenderness (to light palpation) - Extremities Exam Extremities exam: Absent: calf tenderness, edema - Allied Health Notes Allied health notes reviewed: nursing
--- NOTE | 2017-06-03 18:00 | ER PHYSICIAN DOCUMENTATION ---
Physician Documentation [facility], [place] Name:Aislinn Broderick Age:72 yrs Sex:Female :1945 Arrival Date:06/01/2017 Time:14:34 Bed3 Private MD:Gavin Acosta ED, Tom Disposition: 06/02 20:49 Chart complete. tl1 Disposition: 06/01/17 16:52 Admit ordered for Clear, Joel. Preliminary diagnosis is Bowel Obstruction. - Bed requested for Medical/Surgical. - Condition is Fair. - Problem is new. - Symptoms have improved. 23 HR OBS No HPI: 06/01 14:45 This 72 yrs old Female presents to ER via Private Vehicle with complaints of tl1 Abdominal Pain. 14:45 The patient presents with abdominal pain in the upper abdomen. Onset: The tl1 symptoms/episode began/occurred last night, at 21:00. The symptoms do not radiate. Associated signs and symptoms: Pertinent positives: nausea, Pertinent negatives: vomiting. The symptoms are described as crampy, intermittent, waxing/waning. Severity of pain: At its worst the pain was moderate last night, and then the pain resolved, and she slept OK. the pain then recurred this morning and is now intermittently severe and reminiscent of her several recent bouts with bowel obstruction. Since. 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 . Historical: - Allergies: Ceclor; - Home Meds: 1. Colace oral 2. Miralax Oral 3. losartan 50 mg oral tab 4. levothyroxine 88 mcg oral cap 5. Lexapro Oral 6. trazodone 150 mg oral tab 7. Oxybutynin Chloride Oral 8. Flexeril Oral 9. Lasix Oral 10. acetaminophen 650 mg oral tab - PMHx: ARTHRITIS; colon cancer; ileus; abdominal abscesses; HYPOTHYROIDISM; HYPERTENSION; DEPRESSION; Bowel Obstruction (April 18, 2017); Bowel Obstruction (April 30, 2017); - PSHx: colectomy; APPENDECTOMY; left knee replacement; TONSILLECTOMY; Cholecysectomy; - Ebola Screening: : Patient negative for fever greater than or equal to 101.5 degrees Fahrenheit, and additional compatible Ebola Virus Disease symptoms. Patient denies exposure to infectious person. Patient denies travel to an Ebola-affected area in the 21 days before illness onset. No symptoms or risks identified at this time. . - Immunization history: Flu Vaccine < 1 year. - Social history: Smoking status: Patient states was never smoker of tobacco. Patient/guardian denies using alcohol, street drugs, IV drugs, marijuana. ROS: 06/02 14:45 Abdomen/GI: Positive for abdominal pain, nausea, vomiting. tl1 All other systems are negative. Exam: 14:45 Constitutional: The patient appears alert, awake, well developed, well hydrated, well tl1 groomed, well nourished, in obvious distress, moderately distressed, in obvious pain, uncomfortable. 14:45 Head/face: Exam is negative for acute changes. 14:45 Eyes: Exam is negative for acute changes. 14:45 Neck: External neck: is normal, ROM/movement: is normal, is supple. 14:45 Cardiovascular: Rate: normal, Rhythm: regular, Heart sounds: normal, Edema: is not appreciated. 14:45 Respiratory: the patient does not display signs of respiratory distress, Respirations: normal, Breath sounds: are normal. 14:45 Abdomen/GI: Inspection: distension, that is moderate, Bowel sounds: diminished, Palpation: soft, mild abdominal tenderness, in the epigastric area, right upper quadrant and left upper quadrant, moderate abdominal tenderness, voluntary guarding, is not appreciated, no appreciated organomegaly. 14:45 Back: CVA tenderness, is absent. 14:45 Musculoskeletal/extremity: Exam is negative for acute changes. 14:45 Skin: Exam negative for acute changes. 14:45 Neuro: grossly normal. Vital Signs: 06/01 14:43 BP 166 / 92 (auto/); sc1 14:44 Pulse Ox 92% ; sc1 MDM: 15:00 Patient medically screened. tl1 17:00 Differential diagnosis: appendicitis, bowel obstruction, Mesenteric ischemia or tl1 infarction, non-specific abd pain, Peptic Ulcer Disease, Perf. Duodenal Ulcer, Perf. Gastric Ulcer, Peritonitis. Data reviewed: vital signs, nurses notes, old medical records, lab test result(s), CBC, electrolytes, hepatic panel, urinalysis, radiologic studies, plain films, and as a result, I will admit patient. Test interpretation: by ED physician or midlevel provider: plain radiologic studies. Counseling: I had a detailed discussion with the patient and/or guardian regarding: the historical points, exam findings, and any diagnostic results supporting the discharge/admit diagnosis, lab results, radiology results, the need for further work-up and treatment in the hospital. Response to treatment: the patient's symptoms have mildly improved after treatment, and as a result, I will admit patient. Physician consultation: Jole Ignacio MD was called at 18:00, was contacted at 18:30, regarding admission, patient's condition, need to come to ED to see patient, and will see patient. ED course: Pain well controlled with dilaudid and zofran. 06/01 15:30 Order name: BASIC METABOLIC PANEL; Complete Time: 15:50 EDMS 06/01 15:30 Order name: HEPATIC PANEL; Complete Time: 15:50 EDMS 06/01 15:30 Order name: AMYLASE; Complete Time: 15:50 EDWV 06/01 15:30 Order name: LIPASE; Complete Time: 15:50 EDWV 06/01 15:33 Order name: CBC AUTO DIF, MDIF/RMOR IF IND; Complete Time: 15:50 EDWV 06/02 07:02 Order name: CBC AUTO DIF, MDIF/RMOR IF IND EDWV 06/02 07:27 Order name: BASIC METABOLIC PANEL EDWV 06/03 07:16 Order name: CBC AUTO DIF, MDIF/RMOR IF IND EDWV 06/03 07:25 Order name: BASIC METABOLIC PANEL [facility] 06/03 09:55 Order name: OCCULT BLOOD (1-3 SAMPLES) EDWV 06/03 13:40 Order name: HEMATOCRIT EDWV 06/01 16:04 Order name: ABDOMEN; COMPLET W/CHEST 26431; Complete Time: 16:21 EDMS Dispensed Medications: 15:14 Drug: Zofran 4 mg; Route: IVP; Infused Over: 2 mins; Site: right wrist; sc1 15:15 Drug: Dilaudid 0.5 mg; Route: IVP; Site: right wrist; sc1 Signatures: Junie Borja RN RN sc1 Angel Hackett MD MD tl1
== END 2017-06-03 14:17 | disposition home or self-care (01) ==
LOC: ER 14:34 → IN 17:39
PROVIDERS: ADMIT Family Medicine; ATTEND Family Medicine
DX: K56.60 Unspecified intestinal obstruction (principal); R53.1 Weakness; Z90.49 Acquired absence of other specified parts of digestive tract; E87.6 Hypokalemia; E86.0 Dehydration; Z85.09 Personal history of malignant neoplasm of other digestive organs; G47.34 Idiopathic sleep related nonobstructive alveolar hypoventilation; R19.5 Other fecal abnormalities; D64.9 Anemia, unspecified; G47.33 Obstructive sleep apnea (adult) (pediatric); I10 Essential (primary) hypertension; Z79.899 Other long term (current) drug therapy
CPT/HCPCS: 36415; 74022; 80048; 80076; 82150; 82270; 83690; 85014; 85025; 96361; 96372; 96374; 96375; 96376; 99283; 99284; G0378; J1170; J1650; J2405; J7030

== ENCOUNTER 2017-06-06 13:55 | Emergency (ER) | payer MEDICARE, BC ==
[2017-06-06] MEDS ORDERED: ONDANSETRON HCL 4 MG/2 ML VIAL ONE (14:38)
[2017-06-06] MEDS ORDERED: PANTOPRAZOLE 40 MG VIAL IV ONE (14:38)
[2017-06-06] MEDS ORDERED: NORMAL SALINE 100 ML IV ONE (14:41)
[2017-06-06 16:20] LABS: BLOOD UREA NITROGEN 14 mg/dL (7-17); CHLORIDE 101 mmol/L (98-107); EST GLOMERULAR FILTRATION RATE > 60 mL/min; GLUCOSE 93 mg/dL (70-100); POTASSIUM 3.8 mmol/L (3.5-5.1); SODIUM 137 mmol/L (137-145)
[2017-06-06 16:25] LABS: BASOPHIL# 0.2 X 10^3uL (0.0-0.1); BASOPHILS 1.7 % (0.0-2.0); EOSINOPHILS 0.2 % (0.0-6.0); HEMOGLOBIN 10.9 g/dL (12.0-16.0); LYMPHOCYTES# 2.2 X 10^3uL (0.8-3.8); MEAN CORPUS. HGB CONCENTRATION 32.2 g/dL (32.0-36.0); MEAN CORPUSCULAR HEMOGLOBIN 27.7 pg (29.0-35.0); MEAN PLATELET VOLUME 7.6 fL (7.4-10.4); MONOCYTES 2.9 % (2.0-10.0); MONOCYTES# 0.3 X 10^3uL (0.2-1.0); NEUTROPHILS 76.2 % (54.0-75.0); NEUTROPHILS# 8.8 X 10^3uL (2.6-6.7); PLATELET COUNT 347 X 10^3uL (130-440); RED BLOOD COUNT 3.96 X 10^6uL (4.20-6.10); RED CELL DISTRIBUTION WIDTH 14.4 % (11.5-14.5); WHITE BLOOD COUNT 11.5 X 10^3uL (3.9-10.7)
[2017-06-06 16:39] LABS: ALBUMIN 3.5 g/dL (3.5-5.0); ALKALINE PHOSPHATASE 153 U/L (38-126); ALT 33 U/L (9-52); AST 31 U/L (14-36); BILIRUBIN, DIRECT 0.1 mg/dL (0.0-0.4); BILIRUBIN, TOTAL 0.6 mg/dL (0.2-1.3); C-REACTIVE PROTEIN 15.1 mg/L (<10.0); CALCIUM 9.3 mg/dL (8.4-10.2); LIPASE 37 U/L (23-300); TOTAL PROTEIN 6.7 g/dL (6.3-8.2)
--- NOTE | 2017-06-06 17:00 | CT REPORT ---
HISTORY: Abdominal pain. History of partial colectomy. COMPARISON: 04/08/2017 TECHNIQUE: This examination was performed using automated exposure control, adjustment of mA or kV according to patient size, and/or use of iterative reconstruction technique. Multiple contiguous axial images were obtained from the lung bases through the pubic symphysis following administration of intravenous con trast. 100cc Isovue 370 contrast. FINDINGS: LUNGS: There are dependent atelectatic changes. The visualized lungs are otherwise clear. Hepatobiliary:No focal hepatic lesions are seen. The portal vein enhances normally. There is no intra hepatic biliary ductal dilatation. The gallbladder is incompletely distended. Spleen: Normal in size and radiographic appearance. Pancreas: No focal pancreatic lesion or pancreatic ductal dilatation. Adrenals:Unremarkable. Kidneys: There is symmetric enhancement of the renal parenchyma. There is no evidence of hydronephro sis or renal cortical mass. Peritoneum: There is no evidence of free air. There is a small amount of free fluid in the pelvis. Between segment 4/8 of liver and the diaphragm, best seen on image 60 of series 2, there is a U -shap ed suspicious for abscess., well-circumscribed, peripherally enhancing 5.0 x 0.8 cm collection of air and fluid Vessels: Unremarkable. Lymph nodes: There is no lymphadenopathy. Bowel: The stomach is distended with fluid and air. The most proximal portion of the small bowel is n ormal in caliber. There is diffuse fluid distention and moderate to severe dilatation of the proximal and mid small bowel to a maximum diameter 4.6 cm, with an abrupt transition point at the surgical an astomosis (image 50, series 2). Distal to the anastomosis, the colon is entirely collapsed. No defini te bowel wall thickening is seen. Pelvis: The bladder appears unremarkable, without intraluminal mass or calculus. The uterus and ovari es are normal for the patient's age. Bones: The bones are normally mineralized and aligned. No blastic or lytic lesions are seen. The sof t tissues appear unremarkable. IMPRESSION: Findings consistent with mechanical small bowel obstruction, which may reflect adhesions or anastomot ic stricture. Free fluid in the pelvis is probably reactive. 5.0 x 0.8 cm subdiaphragmatic fluid collection abutting the liver likely reflect abscess. Final Electronic Signature: This report was electronically signed by Kirk Ashford MD on 7 4:58 PM. ana luisa /
[2017-06-06] MEDS ORDERED: HOME MEDICATION LIST NEEDED 1 EA EACH MISC ONE (17:11)
[2017-06-06] MEDS ORDERED: DEXTROSE 5% NS 1000 ML 1,000 ML IV SCH (18:00)
--- NOTE | 2017-06-06 18:15 | HISTORY AND PHYSICAL ---
PROVIDER: Date of Admission: Admitting Provider: Attending Provider: Primary Care Provider: Gavin Acosta Consult: Eloise Kramer CHIEF COMPLAINT: abdominal pain, subdiaphragmatic abscess, recurrent SBO, was to have DBE HISTORY OF PRESENT ILLNESS: 72 yo previously healthy lady with only HTN but since January she has had a tumultous course. January 31, 2017 she underwent screening Cscope, had 2 polyps removed and a mass that was cancerous. She was discharged home but returned with vigorous bleeding, had Cscope repeated. She was transferred to [facility] and eventually underwentpartial bowel resection. Complicated by SBO and required NGT decompression . DC'd home and then returned with SBO and required NGT decompression and had wound abscesses, transferred to [facility] and Dr. Mendez. She had a wound vac and required IV Abx. Since then multiple SBO's and then a month ago cholecystitis and had surgery for resection. Recurrent sBO last week discharged Saturday (4 days ago) and returns with pain, emesis, diarrhea, chills, fever. CT in ER with subdiaphragmatic abscess. She also had been seen by Dr. Poncho WATTS who attempted to arrange DBE at [facility] but because readmit has not been able to obtain. I was asked by Dr. Pride to admit for recurrent SBO but we discussed transfer to [facility] for management of the abscess as well the DBE as inpatient if feasible. Call placed to admit line [phone] and awaiting call back from Dr. Sania Torres. PAST MEDICAL HISTORY: Left TKA Hypothyroid DVT HTN KAYODE Depression S/P Thyroidectomy Appy PAST SURGICAL HISTORY: partial cholectomy stephen appy thyroidectomy SOCIAL HISTORY: , no alcohol, former smoker, 2 children MEDICATIONS: budesonide 3mg/day Trazadone 150mg qhs [id number]/day Synthroid 88mcg/dayPrilosec 20mg/day ASA 81mg/day Pygib59dv/day ALLERGIES: Cephalosporins REVIEW OF SYSTEMS: GENERAL: SKIN: HEENT: NECK: RESPIRATORY: CARDIOVASCULAR: GASTROINTESTINAL: GENITOURINARY: MUSCULOSKELETAL: NEUROLOGICAL: PSYCHIATRIC: ENDOCRINE: HEMATOLOGY: Per HPI VITAL SIGNS: 150/88 88 14 99.6 95%2LNC dry mucosa No J/An/Cy/Cl/LN thyroid scar no masses/bruits RRR CTA Distended, tympanic, succussion splash, tinkling BS, no masses/'rebound PHYSICAL EXAMINATION: GENERAL: INTEGUMENTARY: HEAD AND NECK: EYE: ENMT: CHEST AND LUNG: CARDIOVASCULAR: ABDOMEN: GENITOURINARY: RECTAL: PERIPHERAL VASCULAR: NEUROLOGIC MUSCULOSKELETAL: NEUROPSYCHIATRIC: LYMPHATIC: LABORATORY: 11.9 w/76N HGB 10.1 IMAGING: CT abdomen: subdiaphragmatic abscess, partial SBO with midgut transition Assessment and Plan - Date of Encounter Date of Encounter: 06/06/17 (1) Small bowel obstruction, partial Status: Acute Assessment and plan: NGT, fluids, PPI; liased with Dr. Torres regarding transfer and surgical consult, GI consult for double baloon endoscopy and management of subdiaphragmatic abscess. Given Zosyn and Vanco. 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 Should require work up at [facility] Current Visit: No (6) Obstructive sleep apnea Status: Acute Current Visit: No (7) Hypertension Status: Chronic Qualifiers: Hypertension type: essential hypertension Qualified Code(s): I10 - Essential (primary) hypertension Current Visit: No - Time Spent With Patient Total time spent with greater than 50% in coordination of care (as documented) at patient's floor/unit and/or counseling patient: Total time 90 minutes Greater than 35 minutes
[2017-06-06] MEDS ORDERED: NORMAL SALINE MINI-BAG+ 100 ML IV ONE ×2 (18:52→19:40)
[2017-06-06] MEDS ORDERED: PIPERACILLIN /TAZO 4.5 GM/10 ML VIAL IV ONE (18:52)
[2017-06-06] MEDS ORDERED: VANCOMYCIN HCL 1,000 MG/20 ML VIAL ONE (19:40)
--- NOTE | 2017-06-06 20:21 | ER PHYSICIAN DOCUMENTATION ---
Physician Documentation [facility] Name:Aislinn Broderick Age:72 yrs Sex:Female :1945 Arrival Date:06/06/2017 Time:13:55 Bed3 Private MD:Gavin Acosta ED, Brian Disposition: 06/06/17 18:36 Transfer ordered to Other Acute Care Facility. Diagnosis is Bowel Obstruction. - Reason for transfer: Higher level of care. - Accepting physician is Dr. Torres, Hospitalist, [facility] . - Condition is Fair. - Problem is chronic. - Symptoms have worsened. COBRA Form completed? Yes Transfer - Mode of Transportation Ambulance HPI: 06/06 17:01 This 72 yrs old Female presents to ER via Walk In with complaints of be Abdominal Pain. 17:01 The patient presents with abdominal pain in the epigastric area, abdominal distention be that is diffuse. Onset: The symptoms/episode began/occurred this morning. The symptoms do not radiate. Associated signs and symptoms: Pertinent positives: diarrhea, vomiting, Pertinent negatives: chest pain, dysuria, fever, shortness of breath. The patient has experienced similar episodes in the past, several times, and the symptoms today are exactly the same, to when the patient was apparently diagnosed with SBO. Historical: - Allergies: Ceclor; - Home Meds: 1. Colace oral 2. Miralax Oral 3. losartan 50 mg oral tab 4. levothyroxine 88 mcg oral cap 5. Lexapro Oral 6. trazodone 150 mg oral tab 7. Oxybutynin Chloride Oral 8. Flexeril Oral 9. Lasix Oral 10. acetaminophen 650 mg oral tab - PMHx: ARTHRITIS; colon cancer; ileus; abdominal abscesses; HYPOTHYROIDISM; HYPERTENSION; DEPRESSION; Bowel Obstruction (April 18, 2017); Bowel Obstruction (April 30, 2017); - PSHx: colectomy; - Tetanus: < 10 years. - Ebola Screening: : No symptoms or risks identified at this time. . - Immunization history: Pneumococcal vaccine is up to date, Flu Vaccine < 1 year. - Social history: Smoking status: Patient states former smoker of tobacco. ROS: 17:02 Constitutional: Negative for chills, fever. be 17:02 Abdomen/GI: Positive for abdominal pain, vomiting, diarrhea, abdominal distension. 17:02 All other systems are negative. Exam: 17:02 Constitutional: This is a well developed, well nourished patient who is awake, alert, be and in no acute distress. Head/Face: Normocephalic, atraumatic. Neck: Trachea midline, no thyromegaly or masses palpated, and no cervical lymphadenopathy. Supple, full range of motion without nuchal rigidity, or vertebral point tenderness. No Meningismus. Chest/axilla: Normal chest wall appearance and motion. Nontender with no deformity. No lesions are appreciated. Cardiovascular: Regular rate and rhythm with a normal S1 and S2. No gallops, murmurs, or rubs. Normal PMI, no JVD. No pulse deficits. Respiratory: Lungs have equal breath sounds bilaterally, clear to auscultation and percussion. No rales, rhonchi or wheezes noted. No increased work of breathing, no retractions or nasal flaring. 17:02 Skin: Warm, dry with normal turgor. Normal color with no rashes, no lesions, and no be evidence of cellulitis. 17:02 Abdomen/GI: Palpation: mild abdominal tenderness, in the epigastric area, mass, is not appreciated. Vital Signs: 14:13 BP 157 / 66; Pulse 75; Resp 15; Temp 97.6(O); Pulse Ox 92% on R/A; Weight 63.5 kg (R); lpr Height 5 ft. 5 in. (165.10 cm) (R); Pain 1/10; 19:41 BP 152 / 66 (auto/); sc1 19:44 Pulse Ox 98% ; sc1 14:13 Body Mass Index 23.30 (63.50 kg, 165.10 cm) lpr Procedures: 17:03 G-tube placement: by RN. be MDM: 13:59 Patient medically screened. be 17:03 Differential diagnosis: bowel obstruction, gastritis, pancreatitis, Perf. Duodenal be Ulcer. Data reviewed: vital signs, nurses notes, old medical records, lab test result(s), EKG, radiologic studies, CT scan, and as a result, I will admit patient, administer IV fluids, NS maintenence, Zofran and pantoprazole. 06/06 16:20 Order name: LACTATE; Complete Time: 17:00 EDMS 06/06 16:56 Interpretation: Normal. be 06/06 16:21 Order name: BASIC METABOLIC PANEL EDMS 06/06 16:56 Interpretation: Normal. be 07 16:41 Order name: HEPATIC PANEL EDMS 06/06 16:56 Interpretation: Normal. be 06/06 16:41 Order name: LIPASE EDMS 06/06 16:56 Interpretation: Normal. be 06/06 16:41 Order name: C-REACTIVE PROTEIN EDMS 06/06 16:56 Interpretation: Abnormal. be 06/06 16:46 Order name: CBC AUTO DIF, MDIF/RMOR IF IND EDMS 06/06 16:56 Interpretation: Normal Except: Leukocytosis with left shift and polycythemia. be 06/07 09:53 Order name: PREALBUMIN EDMS 06/06 17:03 Order name: CAT SCAN; ABD/PEL W 13396; Complete Time: 17:07 EDMS 06/07 08:08 Interpretation: Abnormal: SBO and subdiaphragmatic abscess. be 06/06 14:07 Order name: NPO; Complete Time: 14:19 be Dispensed Medications: 15:42 Drug: Zofran 8 mg; Route: IVP; Infused Over: 2 mins; Site: right antecubital; al1 20:19 Follow up: Response: No adverse reaction; Nausea is decreased sc1 15:42 Drug: Protonix 40 mg; Route: IVPB; Site: right antecubital; Delivery: [place] [facility]; al1 15:43 Drug: NS 0.9% 1000 ml; Route: IV; Rate: bolus; Site: right antecubital; Delivery: sc1 [place] [facility]; 17:44 CANCELLED (wrong dose): Dilaudid 0.5 mg IVP once sc1 17:44 Drug: Dilaudid 0.25 mg; Route: IVP; Site: right antecubital; al1 20:20 Follow up: Response: No adverse reaction; Pain is decreased sc1 18:34 Drug: Vancocin 1 grams; Route: IVPB; Infused Over: 2 hrs; Site: right antecubital; al1 Delivery: Pump; 20:19 Follow up: IV Status: Infusing continued upon transfer sc1 18:35 Drug: Dilaudid 0.25 mg; Route: IVP; Site: right antecubital; al1 20:20 Follow up: Response: No adverse reaction; Pain is decreased sc1 18:49 Drug: Zosyn - Piperacillin-Tazobactam 4.5 grams; Route: IVPB; Site: right antecubital; sc1 Delivery: Pump; 19:34 Follow up: IV Status: Completed infusion; IV Intake: 100ml sc1 Signatures: Junie Borja RN RN sc1 Ignacio Solis MD MD be Roberts, Leslie, RN RN lpr
--- NOTE | 2017-06-06 20:21 | ER NURSING DOCUMENTATION ---
Nurse's Notes [facility] Name:Aislinn Broderick Age:72 yrs Sex:Female :1945 Arrival Date:06/06/2017 Time:13:55 Bed3 Private MD:Gavin Acosta Diagnosis:Bowel Obstruction Presentation: 06/06 14:01 Acuity: TAMMI 3 rh 14:10 Presenting complaint: Patient states: n/v and pain since this am. Distended. Transition lpr of care: Home. 14:10 Acuity: TAMMI 2 lpr 14:10 Method Of Arrival: Walk In lpr Triage Assessment: 14:14 General: Appears uncomfortable, Behavior is cooperative. Pain: Complains of pain in lpr abdomen. EENT: Oral mucosa is moist. Neuro: Level of Consciousness is awake, alert, obeys commands, Oriented to person, place, time, event. Cardiovascular: Rhythm is regular Chest pain is denied. Respiratory: Airway is patent Respiratory effort is even, unlabored, Respiratory pattern is regular, symmetrical. GI: Abdomen is distended, Abdomen is tender to palpation X 4 quads. : No deficits noted. Derm: Skin is intact, is fragile, Skin is pink, warm & dry. Musculoskeletal: Circulation, motion, and sensation intact Capillary refill < 3 seconds. Historical: - Allergies: Ceclor; - Home Meds: 1. Colace oral 2. Miralax Oral 3. losartan 50 mg oral tab 4. levothyroxine 88 mcg oral cap 5. Lexapro Oral 6. trazodone 150 mg oral tab 7. Oxybutynin Chloride Oral 8. Flexeril Oral 9. Lasix Oral 10. acetaminophen 650 mg oral tab - PMHx: ARTHRITIS; colon cancer; ileus; abdominal abscesses; HYPOTHYROIDISM; HYPERTENSION; DEPRESSION; Bowel Obstruction (April 18, 2017); Bowel Obstruction (April 30, 2017); - PSHx: colectomy; - Tetanus: < 10 years. - Ebola Screening: : No symptoms or risks identified at this time. . - Immunization history: Pneumococcal vaccine is up to date, Flu Vaccine < 1 year. - Social history: Smoking status: Patient states former smoker of tobacco. Screenin:16 Infectious Disease Risk None. Abuse screen: Denies threats or abuse. Nutritional lpr screening: No deficits noted. Assessment: 14:16 See Triage Assessment done by same RN. GI: Bowel sounds hypoactive in right upper lpr quadrant, left upper quadrant, right lower quadrant and left lower quadrant. Vital Signs: 14:13 BP 157 / 66; Pulse 75; Resp 15; Temp 97.6(O); Pulse Ox 92% on R/A; Weight 63.5 kg (R); lpr Height 5 ft. 5 in. (165.10 cm) (R); Pain 1/10; 19:41 BP 152 / 66 (auto/); sc1 19:44 Pulse Ox 98% ; sc1 14:13 Body Mass Index 23.30 (63.50 kg, 165.10 cm) lpr ED Course: 13:56 Patient arrived in ED. ama 13:56 Gavin Acosta DO is Private Physician. ama 13:59 Ignaico Solis MD is Attending Physician. be 14:01 Triage completed. rh 14:16 Valuables Remains with patient Patient has correct armband on for positive lpr identification. Placed in gown. Bed in low position. Call light in reach. Side rails up X 1. Cardiac Monitoring On for Nurse Monitoring only. Pulse Ox - RN Monitoring Only NIBP On - RN Monitoring Only. 14:26 Junie Borja, RN is Primary Nurse. sc1 14:26 Missed attempts: 20 gauge X 2 in left forearm. sc1 15:02 Missed attempts: 22 gauge X 2 in right forearm. sc1 17:05 Lj Kramer MD is Admitting Physician. be Administered Medications: 15:42 Drug: Zofran 8 mg; Route: IVP; Infused Over: 2 mins; Site: right antecubital; ca1 20:19 Follow up: Response: No adverse reaction; Nausea is decreased sc1 15:42 Drug: Protonix 40 mg; Route: IVPB; Site: right antecubital; Delivery: [place] [facility]; ca1 15:43 Drug: NS 0.9% 1000 ml; Route: IV; Rate: bolus; Site: right antecubital; Delivery: sc1 [place] [facility]; 17:44 CANCELLED (wrong dose): Dilaudid 0.5 mg IVP once sc1 17:44 Drug: Dilaudid 0.25 mg; Route: IVP; Site: right antecubital; ca1 20:20 Follow up: Response: No adverse reaction; Pain is decreased sc1 18:34 Drug: Vancocin 1 grams; Route: IVPB; Infused Over: 2 hrs; Site: right antecubital; [facility] Delivery: Pump; 20:19 Follow up: IV Status: Infusing continued upon transfer [facility] 18:35 Drug: Dilaudid 0.25 mg; Route: IVP; Site: right antecubital; ca1 20:20 Follow up: Response: No adverse reaction; Pain is decreased [facility] 18:49 Drug: Zosyn - Piperacillin-Tazobactam 4.5 grams; Route: IVPB; Site: right antecubital; ca1 Delivery: Pump; 19:34 Follow up: IV Status: Completed infusion; IV Intake: 100ml [facility] Intake: 19:34 IV: 100ml; Total: 100ml. [facility] Outcome: 17:06 Decision to Admit by Provider. be 18:36 ER care complete, transfer ordered by . be 18:55 [facility] Acceptance Time: June 06, 2017 at 18:55 20:18 Condition: stable [facility] 20:18 Report given to Ghassan GREEN 20:18 Instructed on need for transfer 20:20 Patient left the ED. [facility] Signatures: Junie Borja RN RN [facility] Ignacio Solis MD MD be Terriere, Tracy tt Roberts, Leslie, RN RN David Paredes Reg Reg ama Hofsess, Rachel
[2017-06-07] MEDS ORDERED: ENOXAPARIN SODIUM 40 MG/0.4 ML SYR SUBCUT SCH (09:00)
== END 2017-06-06 20:21 | disposition short-term general hospital (02) ==
LOC: ER 13:55 → UNDOADMOB 18:21 → IN 18:21
DX: K56.60 Unspecified intestinal obstruction (principal); K65.1 Peritoneal abscess; R10.84 Generalized abdominal pain; R14.0 Abdominal distension (gaseous); D72.829 Elevated white blood cell count, unspecified; D75.1 Secondary polycythemia; R19.7 Diarrhea, unspecified; C18.0 Malignant neoplasm of cecum; I10 Essential (primary) hypertension; Z79.899 Other long term (current) drug therapy; Z99.89 Dependence on other enabling machines and devices; Z74.3 Need for continuous supervision
CPT/HCPCS: 36415; 43753; 74177; 80048; 80076; 83605; 83690; 84134; 85025; 86140; 96365; 96367; 96368; 96375; 96376; 99285; A0425; A0427; J1170; J2405; J2543; J3370

== ENCOUNTER 2017-06-15 15:27 | Inpatient (IN) | payer MEDICARE, BC ==
[2017-06-15 16:06] LABS: BASOPHIL# 0.1 X 10^3uL (0.0-0.1); BASOPHILS 0.7 % (0.0-2.0); EOSINOPHILS 0.2 % (0.0-6.0); HEMATOCRIT 37.8 % (36.0-48.0); HEMOGLOBIN 12.5 g/dL (12.0-16.0); LYMPHOCYTES 33.6 % (20.0-40.0); LYMPHOCYTES# 3.1 X 10^3uL (0.8-3.8); MEAN CELL VOLUME 86.2 fL (80.0-100.0); MEAN CORPUS. HGB CONCENTRATION 33.1 g/dL (32.0-36.0); MEAN CORPUSCULAR HEMOGLOBIN 28.5 pg (29.0-35.0); MEAN PLATELET VOLUME 7.6 fL (7.4-10.4); MONOCYTES 4.2 % (2.0-10.0); MONOCYTES# 0.4 X 10^3uL (0.2-1.0); NEUTROPHILS 61.3 % (54.0-75.0); NEUTROPHILS# 5.6 X 10^3uL (2.6-6.7); PLATELET COUNT 468 X 10^3uL (130-440); RED BLOOD COUNT 4.39 X 10^6uL (4.20-6.10); RED CELL DISTRIBUTION WIDTH 15.1 % (11.5-14.5); WHITE BLOOD COUNT 9.2 X 10^3uL (3.9-10.7)
[2017-06-15 16:14] LABS: A/G RATIO 1.1; ALBUMIN 3.6 g/dL (3.5-5.0); ALKALINE PHOSPHATASE 133 U/L (38-126); ALT 29 U/L (9-52); AST 22 U/L (14-36); BILIRUBIN, TOTAL 0.5 mg/dL (0.2-1.3); BLOOD UREA NITROGEN 12 mg/dL (7-17); CALCIUM 9.7 mg/dL (8.4-10.2); CHLORIDE 100 mmol/L (98-107); EST GLOMERULAR FILTRATION RATE > 60 mL/min; GLUCOSE 115 mg/dL (70-100); SODIUM 138 mmol/L (137-145)
--- NOTE | 2017-06-15 16:43 | RADIOLOGY REPORT ---
HISTORY: Abdominal pain COMPARISON: June 06, 2017 FINDINGS: 2 views of the abdomen obtained. Single frontal view of the chest obtained. Heart size within normal limits. Mild atelectasis in the right lung base. The lungs are otherwise sekou ar. Multiple dilated loops of small bowel are present in the left abdomen with air-fluid levels on up right film. Findings are concerning for small bowel obstruction. The distal small bowel and colon teean ear decompressed. Prior cholecystectomy. IMPRESSION: Findings concerning for small bowel obstruction. Final Electronic Signature: This report was electronically signed by Juan Ayala MD on 06/15/2017 4:40 PM. jenifer /
[2017-06-15] MEDS ORDERED: LIDOCAINE HCL 2% JELLY 1 APP/5 ML TUBE ONE (16:48)
[2017-06-15] MEDS ORDERED: TETRACAINE/BENZOCAINE/BUTAMBEN 1 SPRAY CAN TOPICAL ONE (16:48)
[2017-06-15] MEDS ORDERED: HOME MEDICATION LIST NEEDED 1 EA EACH MC ONE (17:37)
[2017-06-15] MEDS ORDERED: ZOLPIDEM TARTRATE 5 MG TABLET PO PRN (17:37)
--- NOTE | 2017-06-15 17:51 | CONSULTATION ---
CONSULTING PROVIDER: Prem Graff REASON FOR CONSULTATION: Small Bowel obsturciton HISTORY OF PRESENT ILLNESS: She had an emergent right hemicolectomy by Dr. Emmanuel in January. She developed complications of a wound infection and required a wound vac. 3 weeks ago she had an open stephen and has had multiple small bowel obstructions. She was transferred to [facility] last week and evaluated. Her SBO resolved without surgery. Symptoms began again today with vomiting. PAST MEDICAL HISTORY: Hypertension Arthritis, Cecal cancer Sleep apnea Wound infection PAST SURGICAL HISTORY: Open stephen open Right hemicolectomy Tonsillectomy thyroid surgery Knee arthroplasty SOCIAL HISTORY: Denies tobacco MEDICATIONS: see EMR ALLERGIES: cefaaclor REVIEW OF SYSTEMS: GENERAL: SKIN: HEENT: NECK: RESPIRATORY: CARDIOVASCULAR: GASTROINTESTINAL: GENITOURINARY: MUSCULOSKELETAL: NEUROLOGICAL: PSYCHIATRIC: ENDOCRINE: HEMATOLOGY: VITAL SIGNS: Afeb, 140/ 118 PHYSICAL EXAMINATION: GENERAL:NAD INTEGUMENTARY: HEAD AND NECK:Supple EYE: ENMT: CHEST AND LUNG:Normal resp effort CARDIOVASCULAR: ABDOMEN:Soft and distended. Multiple scars in midline and upper abdomen GENITOURINARY: RECTAL:deferred PERIPHERAL VASCULAR: NEUROLOGIC MUSCULOSKELETAL: NEUROPSYCHIATRIC: LYMPHATIC: IMAGING: Small bowel obstruciton with dilated loops in left upper quadrant Assessment and Plan - Date of Encounter Date of Encounter: 06/15/17 (1) SBO (small bowel obstruction) Status: Acute Assessment and plan: This has been a recurring problem. She will be admitted for IVF and conservative treatment. I feel she needs an exploration electively when this resolves. This may be attempted laparocopically but could require and open operation. Current Visit: No - Time Spent With Patient Total time spent with greater than 50% in coordination of care (as documented) at patient's floor/unit and/or counseling patient: 25 - 35 minutes
--- NOTE | 2017-06-15 18:32 | ER PHYSICIAN DOCUMENTATION ---
Physician Documentation [facility] Name:Aislinn Broderick Age:72 yrs Sex:Female :1945 Arrival Date:06/15/2017 Time:15:27 Bed6 Private MD:Lj Kramer; Gavin Acosta ED, Tom Disposition: 06/16 19:35 Chart complete. tl1 Disposition: 06/15/17 16:30 Admit ordered for Joseph Graff. Preliminary diagnosis is Bowel Obstruction. - Bed requested for Medical/Surgical. - Condition is Serious. - Problem is an acute exacerbation. - Symptoms are unchanged. 23 HR OBS No HPI: 06/15 15:35 This 72 yrs old Female presents to ER via Private Vehicle with complaints of tl1 Abdominal Pain. 15:35 She has had multiple recent admissions for recurrent bowel obstructions, including, tl1 recently, an evaluation at [facility]. She presents now with several hours of typical obstructive symptoms; crampy pain, nausea, vomiting and cessation of flatus. She had a normal BM last night. No f/c/s/.. Historical: - Allergies: Ceclor; - Home Meds: 1. Colace oral 2. Miralax Oral 3. losartan 50 mg oral tab 4. levothyroxine 88 mcg oral cap 5. Lexapro Oral 6. trazodone 150 mg oral tab 7. Oxybutynin Chloride Oral 8. Flexeril Oral 9. Lasix Oral - PMHx: ARTHRITIS; colon cancer; HYPOTHYROIDISM; HYPERTENSION; DEPRESSION; Bowel Obstruction (April 18, 2017); Bowel Obstruction (April 30, 2017); - PSHx: colectomy; Cholecysectomy; - Tetanus: < 10 years. - Ebola Screening: : Patient denies travel to an Ebola-affected area in the 21 days before illness onset. No symptoms or risks identified at this time. . - Immunization history: Pneumococcal vaccine is up to date, Flu Vaccine < 1 year. - Social history: Smoking status: . ROS: 15:50 Abdomen/GI: Positive for abdominal pain, nausea, vomiting, abdominal cramps, Negative tl1 for diarrhea, hematemesis, black/tarry stool, rectal bleeding, flatulence. 15:50 All other systems are negative. Exam: 15:50 Constitutional: This is a well developed, well nourished patient who is awake, alert, tl1 and in no acute distress. Head/Face: Normocephalic, atraumatic. Cardiovascular: Regular rate and rhythm with a normal S1 and S2. No gallops, murmurs, or rubs. Normal PMI, no JVD. No pulse deficits. 15:50 Respiratory: Lungs have equal breath sounds bilaterally, clear to auscultation and tl1 percussion. No rales, rhonchi or wheezes noted. No increased work of breathing, no retractions or nasal flaring. 15:50 Abdomen/GI: Inspection: distension, that is moderate, Bowel sounds: high pitched, all quadrants. hyperactive, Palpation: soft, mild abdominal tenderness, in all quadrants, rebound tenderness, is not appreciated, voluntary guarding, is not appreciated. 15:50 : CVA tenderness, is absent. 15:50 Skin: Exam negative for acute changes. 15:50 Neuro: Exam negative for acute changes. Vital Signs: 15:39 BP 205 / 94 RA Sitting (auto/reg); Pulse 85 RA; Resp 16 S; Temp 98.2(O); Pulse Ox 93% em3 on R/A; Weight 63.96 kg (R); Height 5 ft. 5 in. (165.10 cm) (R); Pain 3/10; 15:46 BP 142 / 74 (auto/); Pulse 86; Resp 16; Pulse Ox 95% on R/A; Pain 4/10; lc 17:00 BP 142 / 118 (auto/); Pulse 84; Resp 16; Pain 3/10; lc 18:02 BP 164 / 72 (auto/); Pulse 82; Resp 16; Pulse Ox 93% ; Pain 3/10; lc 15:39 Body Mass Index 23.46 (63.96 kg, 165.10 cm) em3 MDM: 15:52 Patient medically screened. tl1 16:00 Differential diagnosis: bowel obstruction. Data reviewed: vital signs, nurses notes, tl1 lab test result(s), CBC, electrolytes, hepatic panel, urinalysis, radiologic studies, plain films, and as a result, I will admit patient. Test interpretation: by ED physician or midlevel provider: plain radiologic studies. Counseling: I had a detailed discussion with the patient and/or guardian regarding: the historical points, exam findings, and any diagnostic results supporting the discharge/admit diagnosis, lab results, radiology results, the need for further work-up and treatment in the hospital. Response to treatment: the patient's symptoms have mildly improved after treatment, and as a result, I will admit patient. Physician consultation: Joseph Graff MD was called at 16:00, was contacted at 16:00, regarding admission, to the floor, patient's condition, need to come to ED to see patient, need to evaluate the patient as soon as possible, and will see patient shortly. ED course: Pain well controlled with dilaudid and zofran. She was hemodynamically stable.. 06/15 16:15 Order name: CBC AUTO DIF, MDIF/RMOR IF IND; Complete Time: 16:28 EDMS 06/15 16:28 Interpretation: WHITE BLOOD COUNT 9.2; HEMOGLOBIN 12.5; HEMATOCRIT 37.8; PLATELET COUNT tl1 468. 06/15 16:17 Order name: COMPREHENSIVE METABOLIC PANEL; Complete Time: 16:28 EDMS 06/15 16:28 Interpretation: Normal. tl1 06/15 21:23 Order name: UA W/ MICRO -CULTURE IF IND EDMS 06/15 16:44 Order name: ABDOMEN; COMPLET W/CHEST [id number] EDMS 06/15 18:35 Order name: ABDOMEN; SINGLE VIEW [id number] EDMS Dispensed Medications: 16:08 Drug: Zofran 4 mg; Route: IVP; Infused Over: 2 mins; Site: left antecubital; st 17:08 Follow up: Response: Nausea is decreased lc 16:13 Drug: NS 0.9% 1000 ml; Route: IV; Rate: bolus; Site: left forearm; lc 18:00 Follow up: IV Status: Completed infusion; IV Intake: 1000ml lc 16:45 Drug: Lidocaine Ointment (2%) 1 inches; Route: Topical; Site: affected area; lc 17:08 Follow up: Response: Pain is decreased lc 16:45 Drug: Cetacaine Gel 1 application; Route: Topical; Site: affected area; lc 17:09 Follow up: Response: Pain is decreased lc 18:30 Not Given (Patient Refused): Dilaudid 1 mg IVP once lc Signatures: Stephani Casillas RN RN st Coleman, Linda, RN RN lc Leigh, Tom, MD MD tl1
--- NOTE | 2017-06-15 18:32 | ER NURSING DOCUMENTATION ---
Nurse's Notes [facility] Name:Aislinn Broderick Age:72 yrs Sex:Female :1945 Arrival Date:06/15/2017 Time:15:27 Bed6 Private MD:Lj Kramer; Gavin Acosta Diagnosis:Bowel Obstruction Presentation: 06/15 15:37 Presenting complaint: Patient states: RECENTLY RELEASED FROM HOSPITAL FOR A BOWEL lc OBSTRUCTION. THIS AM HAD A BM AND LATER C/O ABD SWELLING WITH N/V. THINKS SHE IS OBSTRUCTING AGAIN. Transition of care: Home. 15:37 Acuity: TAMMI 2 lc 15:37 Method Of Arrival: Private Vehicle Triage Assessment: 15:44 General: Appears distressed, ill, Behavior is cooperative. Pain: Complains of pain in lc right lower quadrant and left lower quadrant Pain currently is 5 out of 10 on a pain scale. Quality of pain is described as dull, pressure. GI: Abdomen is distended, Bowel sounds tympanic in right upper quadrant, left upper quadrant, right lower quadrant and left lower quadrant Reports nausea, vomiting. Derm: Skin is pale. Historical: - Allergies: Ceclor; - Home Meds: 1. Colace oral 2. Miralax Oral 3. losartan 50 mg oral tab 4. levothyroxine 88 mcg oral cap 5. Lexapro Oral 6. trazodone 150 mg oral tab 7. Oxybutynin Chloride Oral 8. Flexeril Oral 9. Lasix Oral - PMHx: ARTHRITIS; colon cancer; HYPOTHYROIDISM; HYPERTENSION; DEPRESSION; Bowel Obstruction (April 18, 2017); Bowel Obstruction (April 30, 2017); - PSHx: colectomy; Cholecysectomy; - Tetanus: < 10 years. - Ebola Screening: : Patient denies travel to an Ebola-affected area in the 21 days before illness onset. No symptoms or risks identified at this time. . - Immunization history: Pneumococcal vaccine is up to date, Flu Vaccine < 1 year. - Social history: Smoking status: . Screenin:46 Infectious Disease Risk None. Abuse screen: Denies threats or abuse. Denies injuries lc from another. Nutritional screening: No deficits noted. Assessment: 15:45 See Triage Assessment done by same RN. 16:13 Reassessment: REFUSING NAUSEA AND PAIN MEDS. Vital Signs: 15:39 BP 205 / 94 RA Sitting (auto/reg); Pulse 85 RA; Resp 16 S; Temp 98.2(O); Pulse Ox 93% em3 on R/A; Weight 63.96 kg (R); Height 5 ft. 5 in. (165.10 cm) (R); Pain 3/10; 15:46 BP 142 / 74 (auto/); Pulse 86; Resp 16; Pulse Ox 95% on R/A; Pain 4/10; lc 17:00 BP 142 / 118 (auto/); Pulse 84; Resp 16; Pain 3/10; lc 18:02 BP 164 / 72 (auto/); Pulse 82; Resp 16; Pulse Ox 93% ; Pain 3/10; lc 15:39 Body Mass Index 23.46 (63.96 kg, 165.10 cm) em3 ED Course: 15:31 Patient arrived in ED. arc 15:31 Lj Kramer MD is Private Physician. arc 15:31 Gavin Acosta DO is Private Physician. arc 15:37 Charley Miranda RN is Primary Nurse. lc 15:40 Valuables Remains with patient Patient has correct armband on for positive em3 identification. Placed in gown. Bed in low position. Call light in reach. Side rails up X 1. 15:41 Triage completed. lc 15:44 Angel Hackett MD is Attending Physician. tl1 15:55 Labs drawn. (by ED staff). Sent per order to lab. Inserted peripheral IV: 22 gauge in left Wrist forearm and blood collected. 16:10 Patient moved to radiology. hz 16:29 Joseph Graff MD is Admitting Physician. tl1 16:34 Patient moved back from radiology. hz 16:50 NGT inserted 14 Fr. via right nares. Placement verified. Returned gastric contents. to intermittent suction. Patient tolerated well. Administered Medications: 16:08 Drug: Zofran 4 mg; Route: IVP; Infused Over: 2 mins; Site: left antecubital; st 17:08 Follow up: Response: Nausea is decreased 16:13 Drug: NS 0.9% 1000 ml; Route: IV; Rate: bolus; Site: left forearm; 18:00 Follow up: IV Status: Completed infusion; IV Intake: 1000ml 16:45 Drug: Lidocaine Ointment (2%) 1 inches; Route: Topical; Site: affected area; lc 17:08 Follow up: Response: Pain is decreased lc 16:45 Drug: Cetacaine Gel 1 application; Route: Topical; Site: affected area; lc 17:09 Follow up: Response: Pain is decreased lc 18:30 Not Given (Patient Refused): Dilaudid 1 mg IVP once lc Intake: 18:00 IV: 1000ml; Total: 1000ml. lc Outcome: 16:30 Decision to Admit by Provider. tl1 18:29 Admitted to Med/surg accompanied by nurse, via stretcher, with chart. lc 18:29 Condition: stable 18:29 Instructed on need to admit 18:31 Patient left the ED. lc Signatures: Stephani Casillas RN RN st Coleman, Linda, RN RN lc Meiklejohn, Eric em3 Leigh, Tom, MD MD tl1 Tiffanie Nice Reg Reg arc Zolnowski, Heather
--- NOTE | 2017-06-15 18:34 | RADIOLOGY REPORT ---
HISTORY: NG tube placement. COMPARISON: None. FINDINGS: One view of the abdomen was performed. A nasogastric tube terminates in the stomach. There are profoundly dilated loops of small bowel in the left lower quadrant measuring up to maximal diameter of 5.8 cm. The remainder of the small bowel and colon are normal in caliber. The appearance suggests small bowel obstruction. There is no evidence of free air. Clips in right upper quadrant con sistent with prior cholecystectomy. Soft tissues appear unremarkable. No abnormal calcifications are seen. Degenerative changes in the spine with associated scoliosis appears stable. IMPRESSION: Nasogastric tube terminates in the stomach, and is new since the prior study. Stable dilatation of the proximal small bowel, suggesting small bowel obstruction. Final Electronic Signature: This report was electronically signed by Kirk Ashford MD on 06/15/20 17 6:32 PM. ana luisa /
[2017-06-15] MEDS: POTASSIUM CHLORIDE/NS 20 MEQ/1,000 ML BAG IV SCH (20:30)
[2017-06-15] MEDS: KETOROLAC TROMETHAMINE 30 MG/ML VIAL IV PRN (20:38)
[2017-06-15] MEDS ORDERED: traZODone HCL 50 MG TABLET PO SCH (21:00)
[2017-06-15 21:07] LABS: URINE MUCUS NONE SEEN (Up to 25%); URINE RBC NONE SEEN (0-5/hpf)
[2017-06-15 21:21] LABS: URINE COLOR YELLOW
[2017-06-15 21:22] LABS: URINE APPEARANCE CLEAR; URINE BILIRUBIN NEGATIVE (NEGATIVE); URINE BLOOD NEGATIVE (NEGATIVE); URINE GLUCOSE NORMAL (NEGATIVE); URINE KETONE NEGATIVE (NEGATIVE); URINE LEUKOCYTE ESTERASE NEGATIVE (NEGATIVE); URINE NITRITE NEGATIVE (NEGATIVE); URINE PROTEIN NEGATIVE (NEG - TRACE); URINE SPECIFIC GRAVITY 1.015 (0.001-1.035); URINE SQUAMOUS EPITHELIAL CELL 0-5/hpf (<= 15/hpf); URINE UROBILINOGEN 0.2mg/dL (Normal) (NEG-1mg/dL); URINE WBC 0-4/hpf (0-4/hpf)
[2017-06-15 21:23] LABS: URINE BACTERIA <10 ORGANISMS/hpf (<10/hpf)
[2017-06-16] MEDS: KETOROLAC TROMETHAMINE 30 MG/ML VIAL IV PRN (04:06)
[2017-06-16] MEDS: POTASSIUM CHLORIDE/NS 20 MEQ/1,000 ML BAG IV SCH (07:11)
[2017-06-16 07:12] VITALS: BP 153/66; PULSE 70; RESP 22; TEMP 97.5; O2SAT 97
--- NOTE | 2017-06-16 10:03 | PROGRESS NOTE:General Surgery ---
Assessment and Plan - Date of Encounter Date of Encounter: 06/16/17 (1) SBO (small bowel obstruction) Status: Acute Assessment and plan: Much improved. Passing flatus and had BM. Will advance diet and discharge if tolerates diet. I have advised her to consider an elective CHAU with DR. Patterson , me or Dr. Emmanuel. Current Visit: No - Time Spent With Patient Total time spent with greater than 50% in coordination of care (as documented) at patient's floor/unit and/or counseling patient: ANNA: Gen Surg PN Subjective Patient reports: bowel movement, feels better, flatus, no new complaints ANNA: Gen Surgery PN Obj Exam - Latest Vital Signs and I&O Latest Vital Signs/I&O: Vital Signs Temp 36.4 C L 06/16/17 07:00 Pulse 70 06/16/17 07:00 Resp 22 06/16/17 08:58 BP 153/66 06/16/17 07:00 Pulse Ox 97 06/16/17 08:58 Intake & Output 06/15/17 06/16/17 06/16/17 17:59 05:59 17:59 Intake Total 832 Output Total 1000 150 Balance -168 -150 Weight 64 kg Intake: IV 832 Left Hand 832 Oral 0 Output: Gastric Drainage 300 150 Right Nare 300 150 Urine 700 Other: Urine Appearance Clear Clear Urine Color Yellow Yellow Voiding Method Bedside Commode Bedside Commode # Voids 4 # Bowel Movements 1 - Exam General physical exam: no distress, no pain Abdomen exam: soft - Lab Labs: Laboratory Last Values WBC 9.2 X 10^3uL (3.9-10.7) 06/15/17 15:50 RBC 4.39 X 10^6uL (4.20-6.10) 06/15/17 15:50 Hgb 12.5 g/dL (12.0-16.0) 06/15/17 15:50 Hct 37.8 % (36.0-48.0) 06/15/17 15:50 MCV 86.2 fL (80.0-100.0) 06/15/17 15:50 MCH 28.5 pg (29.0-35.0) L 06/15/17 15:50 MCHC 33.1 g/dL (32.0-36.0) 06/15/17 15:50 RDW 15.1 % (11.5-14.5) H 06/15/17 15:50 Plt Count 468 X 10^3uL (130-440) H 06/15/17 15:50 MPV 7.6 fL (7.4-10.4) 06/15/17 15:50 Neutrophils % 61.3 % (54.0-75.0) 06/15/17 15:50 Lymphocytes % 33.6 % (20.0-40.0) 06/15/17 15:50 Eosinophils % 0.2 % (0.0-6.0) 06/15/17 15:50 Basophils % 0.7 % (0.0-2.0) 06/15/17 15:50 Neutrophils # 5.6 X 10^3uL (2.6-6.7) 06/15/17 15:50 Lymphocytes # 3.1 X 10^3uL (0.8-3.8) 06/15/17 15:50 Monocytes 4.2 % (2.0-10.0) 06/15/17 15:50 Monocytes # 0.4 X 10^3uL (0.2-1.0) 06/15/17 15:50 Eosinophils # 0.0 X 10^3uL (0.0-0.4) 06/15/17 15:50 Basophils # 0.1 X 10^3uL (0.0-0.1) 06/15/17 15:50 Sodium 138 mmol/L (137-145) 06/15/17 15:50 Potassium 4.0 mmol/L (3.5-5.1) 06/15/17 15:50 Chloride 100 mmol/L (98-107) 06/15/17 15:50 Carbon Dioxide 22 mmol/L (22-30) 06/15/17 15:50 BUN 12 mg/dL (7-17) 06/15/17 15:50 Creatinine 0.7 mg/dL (0.5-1.0) 06/15/17 15:50 GFR Calculation > 60 mL/min 06/15/17 15:50 Glucose 115 mg/dL (70-100) H 06/15/17 15:50 Calcium 9.7 mg/dL (8.4-10.2) 06/15/17 15:50 Total Bilirubin 0.5 mg/dL (0.2-1.3) 06/15/17 15:50 AST 22 U/L (14-36) 06/15/17 15:50 ALT 29 U/L (9-52) 06/15/17 15:50 Alkaline Phosphatase 133 U/L (38-126) H 06/15/17 15:50 Total Protein 7.0 g/dL (6.3-8.2) 06/15/17 15:50 Albumin 3.6 g/dL (3.5-5.0) 06/15/17 15:50 Albumin/Globulin Ratio 1.1 06/15/17 15:50 Urine Color Yellow 06/15/17 18:00 Urine Appearance Clear 06/15/17 18:00 Urine pH 7.0 (5-7) 06/15/17 18:00 Ur Specific Seffner 1.015 (0.001-1.035) 06/15/17 18:00 Urine Protein Negative (NEG - TRACE) 06/15/17 18:00 Urine Ketones Negative (NEGATIVE) 06/15/17 18:00 Urine Blood Negative (NEGATIVE) 06/15/17 18:00 Urine Nitrate Negative (NEGATIVE) 06/15/17 18:00 Urine Bilirubin Negative (NEGATIVE) 06/15/17 18:00 Urine Urobilinogen 0.2mg/dl (normal) (NEG-1mg/dL) 06/15/17 18:00 Ur Leukocyte Esterase Negative (NEGATIVE) 06/15/17 18:00 Urine RBC None seen (0-5/hpf) 06/15/17 18:00 Urine WBC 0-4/hpf (0-4/hpf) 06/15/17 18:00 Ur Squamous Epith Cells 0-5/hpf (<= 15/hpf) 06/15/17 18:00 Urine Bacteria <10 organisms/hpf (<10/hpf) 06/15/17 18:00 Urine Mucus None seen (Up to 25%) 06/15/17 18:00 Urine Glucose Normal (NEGATIVE) 06/15/17 18:00 Quality Questions - VTE Prophylaxis Assessment VTE Present on Admission?: No Patient at risk for venous thromboembolism?: Yes VTE Risk Level: Low Risk Pharmaceutical VTE prophylaxis contraindication reason: N/A- VTE prophylaxsis ordered Mechanical VTE prophylaxis contraindication reason: not indicated
[2017-06-16] MEDS ORDERED: ACETAMINOPHEN 325 MG TABLET PO PRN (14:27)
[2017-06-16] MEDS ORDERED: CALCIUM CARBONATE 300 MG TAB.CHEW PO PRN (14:27)
[2017-06-16] MEDS ORDERED: CHOLESTYRAMINE 4 GM PO PRN (14:27)
[2017-06-16] MEDS ORDERED: ONDANSETRON ODT 4 MG TAB.RAPDIS PO PRN (14:27)
[2017-06-16] MEDS ORDERED: OXYBUTYNIN CHLORIDE 5 MG TABLET PO SCH (15:15)
[2017-06-16] MEDS ORDERED: POTASSIUM CHLORIDE ER 20 MEQ TABLET PO SCH (18:00)
[2017-06-16] MEDS ORDERED: traZODone HCL 50 MG TABLET PO SCH (21:00)
[2017-06-17] MEDS ORDERED: LEVOTHYROXINE 88 MCG TABLET PO SCH (06:30)
[2017-06-17] MEDS ORDERED: PANTOPRAZOLE 40 MG TABLET PO SCH (06:30)
[2017-06-17] MEDS ORDERED: LOSARTAN POTASSIUM 50 MG TABLET PO SCH (09:00)
[2017-06-17] MEDS ORDERED: ESCITALOPRAM OXALATE 10 MG TABLET PO SCH (09:00)
[2017-06-17] MEDS ORDERED: FUROSEMIDE 20 MG TABLET PO SCH (09:00)
== END 2017-06-16 14:26 | disposition home or self-care (01) | DRG 390 ==
LOC: ER 15:27 → IN 17:56
PROVIDERS: ADMIT Surgery; ATTEND Family Medicine
DX: K56.60 Unspecified intestinal obstruction (principal); Z90.49 Acquired absence of other specified parts of digestive tract; I10 Essential (primary) hypertension; M15.9 Polyosteoarthritis, unspecified; Z85.09 Personal history of malignant neoplasm of other digestive organs; G47.34 Idiopathic sleep related nonobstructive alveolar hypoventilation; R19.5 Other fecal abnormalities; Z79.899 Other long term (current) drug therapy
CPT/HCPCS: 74000; 74022; 80053; 81001; 85025; 96361; 96374; 99284; 99285; J1885; J3480

== ENCOUNTER 2017-06-26 21:29 | Emergency (ER) | payer MEDICARE, BC ==
[2017-06-26] MEDS ORDERED: LACTATED RINGERS 1,000 ML IV ONE (23:02)
[2017-06-26 23:14] LABS: BASOPHILS 0.5 % (0.0-2.0); EOSINOPHILS 0.8 % (0.0-6.0); EOSINOPHILS# 0.1 X 10^3uL (0.0-0.4); HEMATOCRIT 37.9 % (36.0-48.0); LYMPHOCYTES# 3.5 X 10^3uL (0.8-3.8); MEAN CORPUS. HGB CONCENTRATION 31.6 g/dL (32.0-36.0); MEAN CORPUSCULAR HEMOGLOBIN 27.8 pg (29.0-35.0); MEAN PLATELET VOLUME 8.1 fL (7.4-10.4); MONOCYTES 5.9 % (2.0-10.0); MONOCYTES# 0.5 X 10^3uL (0.2-1.0); NEUTROPHILS 51.8 % (54.0-75.0); NEUTROPHILS# 4.4 X 10^3uL (2.6-6.7); PLATELET COUNT 275 X 10^3uL (130-440); RED CELL DISTRIBUTION WIDTH 14.6 % (11.5-14.5); WHITE BLOOD COUNT 8.5 X 10^3uL (3.9-10.7)
[2017-06-26 23:20] LABS: ALBUMIN 3.6 g/dL (3.5-5.0); ALKALINE PHOSPHATASE 131 U/L (38-126); ALT 21 U/L (9-52); AST 21 U/L (14-36); BILIRUBIN, DIRECT 0.2 mg/dL (0.0-0.4); BILIRUBIN, TOTAL 0.5 mg/dL (0.2-1.3); BLOOD UREA NITROGEN 14 mg/dL (7-17); CALCIUM 9.7 mg/dL (8.4-10.2); CHLORIDE 101 mmol/L (98-107); EST GLOMERULAR FILTRATION RATE > 60 mL/min; GLUCOSE 100 mg/dL (70-100); LIPASE 76 U/L (23-300); POTASSIUM 4.3 mmol/L (3.5-5.1); SODIUM 136 mmol/L (137-145); TOTAL PROTEIN 6.8 g/dL (6.3-8.2)
[2017-06-27 00:16] LABS: URINE APPEARANCE CLEAR; URINE BILIRUBIN NEGATIVE (NEGATIVE); URINE BLOOD NEGATIVE (NEGATIVE); URINE COLOR YELLOW; URINE GLUCOSE NORMAL (NEGATIVE); URINE KETONE NEGATIVE (NEGATIVE); URINE LEUKOCYTE ESTERASE NEGATIVE (NEGATIVE); URINE MUCUS NONE SEEN (Up to 25%); URINE NITRITE NEGATIVE (NEGATIVE); URINE PH 5.5 (5-7); URINE PROTEIN NEGATIVE (NEG - TRACE); URINE RBC NONE SEEN (0-5/hpf); URINE SPECIFIC GRAVITY < or = 1.005 (0.001-1.035); URINE SQUAMOUS EPITHELIAL CELL 0-5/hpf (<= 15/hpf); URINE UROBILINOGEN 0.2mg/dL (Normal) (NEG-1mg/dL); URINE WBC NONE SEEN (0-4/hpf)
[2017-06-27 00:17] LABS: URINE BACTERIA NONE SEEN (<10/hpf)
--- NOTE | 2017-06-27 00:57 | CT REPORT ---
HISTORY: Possible bowel obstruction, history of bowel obstruction, constipation. COMPARISON: CT abdomen and pelvis with contrast June 06, 2017. TECHNIQUE: This examination was performed using automated exposure control, adjustment of mA or kV according to patient size, and/or use of iterative reconstruction technique. Multiple contiguous axial images were obtained from the lung bases through the pubic symphysis following administration of intravenous con trast. 100cc Isovue 300 and contrast. FINDINGS: The visualized lung parenchyma and cardiac structures are unremarkable. Abdomen/pelvis: The liver is normal in appearance without a mass or evidence of intrahepatic ductal d ilatation. Previously seen perihepatic abscess has resolved. There are cholecystectomy clips in the g allbladder fossa. The spleen is normal in appearance. There is no pancreatic mass or ductal dilatation. The adrenal glands are unremarkable. The right an d left kidneys are normal in appearance. No mass or hydronephrosis is noted. There is some hyperdense contrast in the stomach. There are multiple dilated small bowel loops withou t a definite mechanical transition point but the ileum returns to normal size in the right hemiabdome n. There is a small bowel to small bowel anastomosis midline in the abdomen. There is a small volume of ascites. There is no free air or pneumatosis intestinalis. There is no abnormally dilated colon. There is aortic atherosclerosis without aneurysm. No gross lymphadenopathy is seen. Uterus is present . Urinary bladder is unremarkable. There is no destructive osseous lesion. Multilevel degenerative disc disease is present in the thorac olumbar spine and there is apex right scoliosis of the lumbar spine. IMPRESSION: 1. Small bowel obstruction probably related to an adhesion in the right hemiabdomen. A small bowel t o small bowel anastomosis is noted but this does not appear to be the transition point. 2. No free air. No pneumatosis intestinalis. Small volume of ascites. 3. Previously seen perihepatic abscess has resolved. . Final Electronic Signature: This report was electronically signed by Genaro Clemons MD on 06/27/2017 1 2:55 AM. [email or web address] / / [facility] [phone]
--- NOTE | 2017-06-27 02:01 | ER PHYSICIAN DOCUMENTATION ---
Physician Documentation [facility] Name:Aislinn Broderick Age:72 yrs Sex:Female :1945 Arrival Date:06/26/2017 Time:21:29 Bed4 Private MD:Gavin Acosta ED, [place] Disposition: 06/27/17 01:20 Transfer ordered to [facility]. Diagnosis is small bowel obstruction, recurrent, initial encounter for this episode. - Reason for transfer: Specialty. - Accepting physician is [facility] Surg. - Condition is Fair. - Problem is an acute exacerbation. - Symptoms are unchanged. COBRA Form completed? Transfer - Mode of Transportation Ambulance HPI: 06/26 23:18 This 72 yrs old Female presents to ER via Walk In with complaints of ak Abdominal Pain. 23:18 The patient presents with abdominal pain that is diffuse, abdominal distention that is ak diffuse. Onset: The symptoms/episode began/occurred 1600 today. The symptoms do not radiate. Associated signs and symptoms: Pertinent negatives: anorexia, blood in stools, chest pain, constipation, diarrhea, dysuria, fever, headache, hematuria, nausea, palpitations, shortness of breath, vaginal discharge, vomiting, vomiting blood. The symptoms are described as vague. Modifying factors: The symptoms are alleviated by nothing. Severity of pain: At its worst the pain was mild in the emergency department the pain is unchanged. This patient does not have any risk factors related to abdominal pain. hx of mult SB obstr, apparently january had colo c lesion snaring, later had bleeding at this site, had partial colectomy had some postop adhesions, at one point had wound infxn and intra-abd abscess, has had mult surg since january 2017, recently offered exploratory surgery and some more lysis of adhesions, declined given how weak she was, she left hosp 12d ago, doing well, 2 stool this am, feeling stronger, then at 4pm felt different, had abd bloating, no more flatus, feels like prev SBO but without same degree of pain or spasm yet, presents for eval. no f/c/v. is not hungry, has some mild nausea. no gu symptoms. Historical: - Allergies: Ceclor; - Home Meds: 1. Colace oral 2. Miralax Oral 3. losartan 50 mg oral tab 4. levothyroxine 88 mcg oral cap 5. Lexapro Oral 6. trazodone 150 mg oral tab 7. Oxybutynin Chloride Oral 8. Flexeril Oral 9. Lasix Oral - PMHx: ARTHRITIS; colon cancer; HYPOTHYROIDISM; HYPERTENSION; DEPRESSION; Bowel Obstruction (April 18, 2017); Bowel Obstruction (April 30, 2017); - Tetanus: < 10 years. - Ebola Screening: : Patient negative for fever greater than or equal to 101.5 degrees Fahrenheit, and additional compatible Ebola Virus Disease symptoms. Patient denies exposure to infectious person. Patient denies travel to an Ebola-affected area in the 21 days before illness onset. No symptoms or risks identified at this time. . - Family history: No immediate family members are acutely ill. - Immunization history: Flu Vaccine < 1 year. - Social history: Smoking status: Patient states was never smoker of tobacco. - Hospitalizations: : The patient was recently seen at [facility] Patient was recently seen at. ROS: 23:25 Constitutional: Negative for chills, fever. ak 23:25 Cardiovascular: Negative for chest pain, edema, orthopnea, palpitations, paroxysmal nocturnal dyspnea, acute changes. 23:25 Respiratory: Negative for cough, dyspnea on exertion, hemoptysis, orthopnea, pleurisy, shortness of breath, sputum production, wheezing, acute changes. 23:25 Abdomen/GI: Positive for abdominal pain, nausea, Negative for vomiting, diarrhea, constipation. 23:25 : Negative for urinary symptoms. 23:25 Skin: Negative for rash. 23:25 All other systems are negative. Exam: 23:29 Constitutional: The patient appears alert, awake. ak 23:29 Cardiovascular: Rate: normal, Rhythm: regular, Pulses: no pulse deficits are appreciated, Edema: is not appreciated. 23:29 Respiratory: Respirations: normal, Breath sounds: are normal. 23:29 Abdomen/GI: Palpation: mild abdominal tenderness, in all quadrants, prominent scar tissue, no evidence of acute infection, diffusely mildly distended and a little firm, mild diffuse ttp, not peritoneal at this time, does have r mid and lower normal bowel sounds, a little more quiet on the left . 23:29 Skin: Appearance: Color: normal in color, pink. 23:29 Neuro: Orientation: to person, place, time & situation. Motor: is normal, Sensation: is normal. Vital Signs: 21:41 BP 175 / 68; Pulse 70; Resp 14; Temp 98.2; Pulse Ox 93% on R/A; Weight 61.69 kg; Height em1 5 ft. 3 in. (160.02 cm); Pain 12/11; 06/27 01:36 BP 180 / 70; Pulse 76; Resp 18; Pulse Ox 96% on R/A; bw2 06/26 21:41 Body Mass Index 24.09 (61.69 kg, 160.02 cm) em1 MDM: 06/26 22:18 Patient medically screened. ak 23:32 Differential diagnosis: bowel obstruction, diverticulitis, Mesenteric ischemia or ak infarction, non-specific abd pain, urinary tract infection. Data reviewed: vital signs, nurses notes, old medical records, lab test result(s), CBC, electrolytes, hepatic panel, and as a result, I will order radiologic studie(s), CT scan. 23:33 Counseling: I had a detailed discussion with the patient and/or guardian regarding: the ak historical points, exam findings, and any diagnostic results supporting the discharge/admit diagnosis, lab results, radiology results. 06/27 01:21 ED course: discussed Dx c pt. Dr. Emmanuel at [facility] is her primary surgeon and given hx, prev ak consideration for exploratory celiotomy, same location of obstruction, likelihood for need for surgical intervention and need for expert decision making, pt would like to return to [facility]. she further states that her primary physicians here in [facility] had also asked her to go to [facility] for this problem should it recur, will transfer for pt to see her primary gen surgeon per pt request/preference. 01:23 Counseling: I had a detailed discussion with the patient and/or guardian regarding: the ak need to transfer to another facility, see notes below. 06/26 23:15 Order name: CBC AUTO DIF, MDIF/RMOR IF IND; Complete Time: 23:33 EDMS 06/26 23:24 Order name: BASIC METABOLIC PANEL; Complete Time: 23:33 EDMS 06/26 23:24 Order name: HEPATIC PANEL; Complete Time: 23:33 EDMS 06/26 23:24 Order name: LIPASE; Complete Time: 23:33 EDMS 06/26 23:24 Order name: LACTATE; Complete Time: 23:33 EDMS 06/27 00:18 Order name: UA W/ MICRO -CULTURE IF IND; Complete Time: 01:19 EDMS 06/27 00:59 Order name: CAT SCAN; ABD/PEL W [id number]; Complete Time: 01:19 EDMS 06/26 22:43 Order name: NPO; Complete Time: 22:44 ak 06/27 01:09 Order name: NG Tube; Complete Time: : ak Dispensed Medications: 06/26 22:46 CANCELLED (Physician Discretion): Gastrografin Liquid 30 ml PO once [facility] 22:52 Drug: LR - Lactated Ringers Solution 150 ml/hr; Route: IV; Rate: calculated rate; Site: [facility] right antecubital; 06/27 01:40 Follow up: IV Status: Infusing continued upon transfer [facility] 06/26 23:45 Drug: Toradol 30 mg; Route: IVP; Site: right antecubital; [facility] 06/27 00:21 Follow up: Response: Pain is decreased [facility] 01:27 Drug: Phenol [place] 4 sprays; Route: Mucous Membrane; [facility] 01:40 Follow up: Response: No adverse reaction [facility] Signatures: Amber Espinoza 2 Stuart Robb MD MD ak
--- NOTE | 2017-06-27 02:01 | ER NURSING DOCUMENTATION ---
Nurse's Notes [facility] Name:Aislinn Broderick Age:72 yrs Sex:Female :1945 Arrival Date:06/26/2017 Time:21:29 Bed4 Private MD:Gavin Acosta Diagnosis:small bowel obstruction, recurrent, initial encounter for this episode Presentation: 06/26 21:33 Acuity: TAMMI 3 rh 21:46 Presenting complaint: Patient states: she has abdominal discomfort. pt denies nausea or bw2 vomiting. pt states he last bowel movement was today. pt is concerned she has a bowel obstruction. Transition of care: Home. 21:46 Method Of Arrival: Walk In [facility] Triage Assessment: 21:50 General: Appears in no apparent distress, Behavior is appropriate for age. Pain: Denies [facility] pain. GI: Reports bloating. Historical: - Allergies: Ceclor; - Home Meds: 1. Colace oral 2. Miralax Oral 3. losartan 50 mg oral tab 4. levothyroxine 88 mcg oral cap 5. Lexapro Oral 6. trazodone 150 mg oral tab 7. Oxybutynin Chloride Oral 8. Flexeril Oral 9. Lasix Oral - PMHx: ARTHRITIS; colon cancer; HYPOTHYROIDISM; HYPERTENSION; DEPRESSION; Bowel Obstruction (April 18, 2017); Bowel Obstruction (April 30, 2017); - Tetanus: < 10 years. - Ebola Screening: : Patient negative for fever greater than or equal to 101.5 degrees Fahrenheit, and additional compatible Ebola Virus Disease symptoms. Patient denies exposure to infectious person. Patient denies travel to an Ebola-affected area in the 21 days before illness onset. No symptoms or risks identified at this time. . - Family history: No immediate family members are acutely ill. - Immunization history: Flu Vaccine < 1 year. - Social history: Smoking status: Patient states was never smoker of tobacco. - Hospitalizations: : The patient was recently seen at [facility] Patient was recently seen at. Screenin:50 Infectious Disease Risk None. Abuse screen: Denies threats or abuse. Nutritional 2 screening: No deficits noted. Assessment: 21:50 See Triage Assessment done by same RN. bw2 06/27 01:33 GI: Bowel sounds present X 4 quads. Abdomen is tender to palpation X 4 quads. bw2 Vital Signs: 06/26 21:41 BP 175 / 68; Pulse 70; Resp 14; Temp 98.2; Pulse Ox 93% on R/A; Weight 61.69 kg; Height em1 5 ft. 3 in. (160.02 cm); Pain 12/11; 06/27 01:36 BP 180 / 70; Pulse 76; Resp 18; Pulse Ox 96% on R/A; bw2 06/26 21:41 Body Mass Index 24.09 (61.69 kg, 160.02 cm) em1 ED Course: 06/26 21:31 Patient arrived in ED. ama 21:31 Gavin Acosta DO is Private Physician. ama 21:33 Triage completed. 21:46 Amber Espinoza is Primary Nurse. bw2 21:46 Stuart Robb MD is Attending Physician. ak 21:50 Valuables Remains with patient Patient has correct armband on for positive bw2 identification. Placed in gown. Bed in low position. 06/27 00:53 Patient moved to [place]. [place] 00:53 Patient moved back from [place]. [place] :27 NGT inserted 14 Fr. via right nares. Placement verified. Returned gastric contents. to [facility] intermittent suction. Returned gastric contents. Patient tolerated well. Inserted peripheral IV: 20 gauge in right antecubital area. Administered Medications: 06/26 22:46 CANCELLED (Physician Discretion): Gastrografin Liquid 30 ml PO once bw2 22:52 Drug: LR - Lactated Ringers Solution 150 ml/hr; Route: IV; Rate: calculated rate; Site: [facility] right antecubital; 06/27 01:40 Follow up: IV Status: Infusing continued upon transfer 2 06/26 23:45 Drug: Toradol 30 mg; Route: IVP; Site: right antecubital; 2 06/27 00:21 Follow up: Response: Pain is decreased bw2 01:27 Drug: Phenol [place] 4 sprays; Route: Mucous Membrane; 2 01:40 Follow up: Response: No adverse reaction 2 Output: 00:01 Urine: 300ml (Voided); Total: 300ml. 2 Outcome: 01:20 ER care complete, transfer ordered by . ak 01:28 Transferred: Patient will be transferred to: [facility]. Facility [facility] Acceptance Time: June 27, 2017 at 01:29 Patient's face sheet was faxed to accepting facility. Face Sheet included patient's name, address, age, gender, contact information and insurance information. Patient will be transported by: [facility]. Nurse and Physician Charting and Notes were sent to Accepting Facility. All tests and/or procedures with results, if applicable, were sent to accepting facility. 01:36 Condition: stable bw2 01:36 Discharge Assessment: Patient awake, alert and oriented x 3. No cognitive and/or functional deficits noted. Patient verbalized understanding of disposition instructions. 01:36 Instructed on need for transfer 01:39 Report given to Wendy NELSON bw2 02:00 Patient left the ED. bw2 Signatures: Genie [employer], [employer] em1 David Trejo Reg Reg ama Hofsess, Grazyna Tiffanie Espinozah bw2 Stuart Robb MD MD ak
== END 2017-06-27 02:01 | disposition short-term general hospital (02) ==
LOC: ER 21:29
DX: K56.60 Unspecified intestinal obstruction (principal); R14.0 Abdominal distension (gaseous); R11.0 Nausea; R10.84 Generalized abdominal pain; Z98.890 Other specified postprocedural states; I10 Essential (primary) hypertension; Z85.038 Personal history of other malignant neoplasm of large intestine; Z79.899 Other long term (current) drug therapy; Z74.3 Need for continuous supervision; Z99.89 Dependence on other enabling machines and devices
CPT/HCPCS: 36415; 74177; 80048; 80076; 81001; 83605; 83690; 85025; 96361; 96374; 99285; A0425; A0427; J7120